=== PATIENT | female | born 1980 | race Caucasian/White ===

== ENCOUNTER 2017-08-21 13:00 | Outpatient (RCR) | payer OTHER, SELFPAY ==
--- NOTE | 2017-08-14 16:37 | PT.OTN ---
Current Diagnoses Other specified disorders of bone, other site (08/14/17) Sprain of sacroiliac joint, sequela (08/14/17) Other specified injury of muscle, fascia and tendon of right hip, sequela (08/14/17) Transition note: On August 08, 2017 our therapy services consisting of Speech, Occupational, and Physical Therapy transitioned from the [employer] electronic documentation system to a new [employer] electronic documentation system.?? All documentation prior to August 08 can be found under [employer] saved data. From August 08 forward all medical record documentation will be in [employer] 6.1.
--- NOTE | 2017-08-15 08:54 | PT.OTN ---
Current Diagnoses Other specified disorders of bone, other site (08/14/17) Sprain of sacroiliac joint, sequela (08/14/17) Other specified injury of muscle, fascia and tendon of right hip, sequela (08/14/17) Physical Therapy Treatment Note PT-OP-A Visit Information Start: 08/14/17 07:29 Freq: Status: Active Protocol: Activity Type Activity Date Activity User E-Sign Co-Sign Detail Recorded Client Recorded Date Recorded By Document 08/14/17 09:45 [facility] [email or web address] 08/15/17 08:52 [facility] 08/14/17 09:45 Out-Patient Physical Therapy Visit Information [Visit Information] -Visit Type Treatment Note -Visit Start Time 09:45 -Visit Stop Time 10:40 -Total Visit Minutes 55 -Number of [employer] Visits 0 PT-OP-C Subjective Start: 08/14/17 07:29 Freq: Status: Active Protocol: Activity Type Activity Date Activity User E-Sign Co-Sign Detail Recorded Client Recorded Date Recorded By Document 08/14/17 09:45 [facility] [email or web address] 08/15/17 08:52 [facility] 08/14/17 09:45 OP-PT Subjective [Patient Comments] -Patient Comments Reports her dog was sick last week so she had to cancel her last appointment. Notes she has not worked since last attended session and has not been using elliptical or doing videos. Report she has been walking and did 6 miles 1 day with 1 mile of running . Reports she also removed baseboards at home and has been feelin gmuch better. She ddi the elliptical this AM and is going to test her other activities before seeing MD on . -Patient Reported Progress Improving PT-OP-Q Treatments Start: 08/14/17 07:29 Freq: Status: Active Protocol: Activity Type Activity Date Activity User E-Sign Co-Sign Detail Recorded Client Recorded Date Recorded By Document 08/14/17 09:45 [facility] [email or web address] 08/15/17 08:52 [facility] 08/14/17 09:45 Therapeutic Exercises [Standing Exercises] 3 -Standing Exercise Name wall posture roll up with 90 /90 ER -Side bilateral 2 -Standing Exercise Name lunge -Side bilateral -Comments lumbar neutral & avoiding rotation 1 -Standing Exercise Name squat -Side bilateral -Comments cueing for lumbar neutral Therapeutic Activity [Therapeutic Activity] 1 -Name Standing posture & work posture/ positioning -Comments Went over common work positions and discussed proper position . Discussed bringing in a stool at all times when working. PT-OP-R Modalities Start: 08/14/17 07:29 Freq: Status: Active Protocol: Activity Type Activity Date Activity User E-Sign Co-Sign Detail Recorded Client Recorded Date Recorded By Document 08/14/17 09:45 [facility] [email or web address] 08/15/17 08:52 [facility] 08/14/17 09:45 Hot Pack/Cold Pack [Treatment] Cold Pack -Location lumbar -Patient Position Hooklying -Treatment Duration (minutes) 10 PT-OP-T Assessment and Plan Start: 08/14/17 07:29 Freq: Status: Active Protocol: Activity Type Activity Date Activity User E-Sign Co-Sign Detail Recorded Client Recorded Date Recorded By Document 08/14/17 09:45 [facility] [email or web address] 08/15/17 08:52 [facility] 08/14/17 09:45 Physical Therapy Assessment [Assessment Summary] -Assessment Pt was much improved with squat and lunge form today. She was able to do squats with very minimal cueing. Lunging with L foot back, pt had inc rotation through trunk that required correction. Able to problem solve some workplace issues with pt that are likely causing pain. Physical Therapy Plan [Frequency and Duration] -Frequency of Treatment 1x/Week -Plan of Care Start Date 07/22/17 -Plan of Care End Date 09/20/17 [Next Visit Focus/Plan] -Next Visit Plan Cont to work on posture during troublesome activities
--- NOTE | 2017-08-21 16:30 | PT.OTN ---
Current Diagnoses Other specified disorders of bone, other site (08/21/17) Sprain of sacroiliac joint, sequela (08/21/17) Other specified injury of muscle, fascia and tendon of right hip, sequela (08/21/17) Physical Therapy Treatment Note PT-OP-A Visit Information Start: 08/14/17 07:29 Freq: Status: Active Protocol: Document 08/21/17 13:00 AMB (Rec: 08/21/17 16:29 AMB [email or web address]) Out-Patient Physical Therapy Visit Information Visit Information Visit Type Treatment Note Visit Note POC expires September 20, 2017 Visit Start Time 13:00 Visit Stop Time 13:50 Total Visit Minutes 50 Visit Number 15 Evaluation Information Evaluation Date 05/24/17 PT-OP-C Subjective Start: 08/14/17 07:29 Freq: Status: Active Protocol: Document 08/21/17 13:00 AMB (Rec: 08/21/17 16:29 AMB [email or web address]) OP-PT Subjective Patient Comments Patient Comments Pt states she saw health benefits specialist who is not concerned about her disc bulge . He feels her pain is coming from her SI joint, and offered an injection which needs to go through her insurance to be authorized. Her pain was good until Monday , she thinks the elliptical really bothered her. Her pain is better today, she is working tomorrow. PT-OP-Q Treatments Start: 08/14/17 07:29 Freq: Status: Active Protocol: Document 08/21/17 13:00 AMB (Rec: 08/21/17 16:29 AMB [email or web address]) Therapeutic Exercises Supine Exercises 1 Supine Exercise Name hip flexor stretch Side right Reps/Minutes 2 x 30 Standing Exercises 2 Standing Exercise Name lunge Side bilateral Comments lumbar neutral & avoiding rotation 1 Standing Exercise Name squat Side bilateral Comments cueing for lumbar neutral Therapeutic Activity Therapeutic Activity 1 Name Standing posture & work posture/positioning Comments Pivot using feet vs twisting with spine Manual Therapy Treatment Soft Tissue Mobilization 1 Body Location R piriformis Mobilization Type Sustained Pressure Intensity/Depth Moderate Body Position Sidelying Joint Mobilizations 1 Joint SI Direction counter nutation Grade II Body Position Prone Reps/Duration 3 x 10 Manual Traction L LE Body Position Supine Manual Techniques MET Type to correct R anterior rotation Body Position hooklying Reps/Duration 3 x PT-OP-R Modalities Start: 08/14/17 07:29 Freq: Status: Active Protocol: Document 08/21/17 16:29 AMB (Rec: 08/21/17 16:29 AMB [email or web address]) Hot Pack/Cold Pack Treatment Cold Pack Location lumbar Patient Position Hooklying Treatment Duration (minutes) 10 PT-OP-T Assessment and Plan Start: 08/14/17 07:29 Freq: Status: Active Protocol: Document 08/21/17 13:00 AMB (Rec: 08/21/17 16:29 AMB [email or web address]) Physical Therapy Assessment Assessment Summary Assessment Pt continues to have good days and bad. She has been more active with yardwork and walking which do not flare her pain unless she is already painful. Physical Therapy Plan Frequency and Duration Frequency of Treatment 1x/Week Plan of Care Start Date 07/22/17 Plan of Care End Date 09/20/17 Next Visit Focus/Plan Next Visit Plan Progress HEP as tolerated to avoid pain flare up
--- NOTE | 2017-10-31 12:00 | PT.OPDS ---
Current Diagnoses Other specified disorders of bone, other site (08/21/17) Sprain of sacroiliac joint, sequela (08/21/17) Other specified injury of muscle, fascia and tendon of right hip, sequela (08/21/17) Provider Visit Care Team Role Provider Type Lia Perez MD Attending Provider Physician Family Provider Primary Care Provider Specialty: Family Practice Address: [address] [place] [address], [facility] Email: [email or web address] Visit Number Visit Number 15 Discharge Summary PT-OP-C Subjective Start: 08/14/17 07:29 Freq: Status: Active Protocol: Document 08/21/17 13:00 AMB (Rec: 08/21/17 16:29 AMB [email or web address]) OP-PT Subjective Patient Comments Patient Comments Pt states she saw hris specialist who is not concerned about her disc bulge . He feels her pain is coming from her SI joint, and offered an injection which needs to go through her insurance to be authorized. Her pain was good until Monday , she thinks the elliptical really bothered her. Her pain is better today, she is working tomorrow. PT-OP-T Assessment and Plan Start: 08/14/17 07:29 Freq: Status: Active Protocol: Document 10/31/17 09:58 AMB (Rec: 10/31/17 10:00 AMB [id number]) Physical Therapy Assessment Assessment Summary Assessment The patient was seen for 2 visits in this EMR. She was seen for 15 visits total. During her time in PT she was seen for right sided posterior SI/ buttock/ back pain. The pain would intermittently flare, especially with standing at work. The patient did improve to the point where she was ablet to exercise (but not at her previous baseline function). She was going to have surgery to remove a cyst in the area. Her insurance authorization has now and she would need to have a new prescription to restart physical therapy in the future , which she would be welcome to do if needed. Overall she improved with physical therapy , but not to her baseline level.
== END 2017-11-13 16:09 ==
LOC: PHYS 13:00
PROVIDERS: Family Provider Family Medicine; PCP Family Medicine; Visit Provider Family Medicine
DX: M89.8X8 Other specified disorders of bone, other site (principal); S33.6XXS Sprain of sacroiliac joint, sequela; S76.091 Other specified injury of muscle, fascia and tendon of right hip
CPT/HCPCS: 97010; 97110; 97140; 97530

== ENCOUNTER → 2017-09-25 08:36 | Outpatient (CLI) | payer OTHER, SELFPAY ==
[2017-09-25 09:44] LABS: Add Manual Diff / Slide Review NO; Basophils Percent Auto 0.7 % (0-2); Eosinophils Percent Auto 0.1 % (2-4); Hematocrit 43.1 % (36-46); Hemoglobin 14.9 g/dL (12.0-16.0); Mean Corpuscular HGB Conc 34.6 % (30-36); Mean Corpuscular Hemoglobin 30.7 PG (26-34); Mean Corpuscular Volume 88.7 fL (80-100); Monocytes Percent Auto 6.6 % (3-14); Neutrophils Absolute Auto 3900 /uL (3000-5900); Neutrophils Percent Auto 65.6 % (50-75); Platelet Count 208 X10^3/uL (150-400); Red Blood Cell Count 4.86 X10^6/uL (4.0-5.2); Red Cell Distribution Width 12.7 % (11.6-14.8)
[2017-09-25 10:04] LABS: Alanine Aminotransferase 22 IU/L (9-52); Albumin 4.4 g/dL (3.5-5.0); Albumin Globulin Ratio 1.5 (1.0-2.8); Alkaline Phosphatase 46 U/L (38-126); Aspartate Aminotransferase 20 IU/L (14-36); BUN Creatinine Ratio 21.7 (6-22); Blood Urea Nitrogen 13 mg/dL (7-17); Calcium 8.9 mg/dL (8.4-10.2); Carbon Dioxide 28 mmol/L (22-32); Chloride 101 mmol/L (98-107); Cholesterol 176 mg/dL (140-199); Estimated Glomerular Filt Rate > 60.0 mL/min (>60); Globulin 2.9 g/dL (1.7-4.1); Glucose 84 mg/dL (70-100); HDL Cholesterol 51 mg/dL (40-60); HEMOLYSIS < 15 (0-50); LDL Cholesterol Calculated 113 mg/dL (<100); Potassium 4.2 mmol/L (3.4-5.1); Sodium 141 mmol/L (137-145); Total Protein 7.3 g/dL (6.3-8.2); Triglycerides 61 mg/dL (35-150)
[2017-09-25 10:57] LABS: TSH w/ Reflex to FT4 3.54 uIU/mL (0.47-4.68)
== END ==
PROVIDERS: PCP Family Medicine; Visit Provider Family Medicine
DX: E78.5 Hyperlipidemia, unspecified (principal)
CPT/HCPCS: 36415; 80053; 80061; 84443; 85025

== ENCOUNTER 2017-10-12 06:55 | Day surgery (SDC) | payer OTHER, SELFPAY ==
[2017-09-28 15:14] VITALS: BMI 25.5
[2017-10-12] VITALS (7 sets, daily range): BP systolic 109–127; BP diastolic 71–78; PULSE 98–112; RESP 12–20; TEMP 36.3–37.1; O2SAT 100; BMI 25.5
--- NOTE | 2017-10-12 | PATH_ITS ---
[facility] Accession Number: [id number] . 01 Material submitted: . FATTY MASS OF THE BACK . 02 Diagnosis: Mass of the Back, Excision: Mature adipose tissue, consistent with lipoma. Negative for malignancy. MRV/10/16/2017 . 02 Electronically signed: . Aamir Macedo MD, PhD, Pathologist NPI- [id number] . 01 Gross description: . One specimen is received in formalin, labeled Nitza Guillaume and fatty mass of back, and consists of multiple irregular, fragmented portions of corado-yellow, lobulated, fibrofatty tissue, 6 x 4.5 x 3.2 cm in aggregate. Sectioning reveals a homogenous cut surface. [employer] sections are submitted in cassettes A1-A6. ([id number]) /FRR . 02 Pathologist provided ICD-10: D17.9 . 02 CPT . 405212 Performed at: 01 [facility] [address] [facility], [place], [place] [id number] MD Moses Watson MD Phone: [phone] Performed at: [facility] [address] [place], [place] [id number] MD Kb Friedman MD Phone: [phone]
[2017-10-12] MEDS: LACTATED RINGERS 1,000 ML 200 ML IV (07:15)
--- NOTE | 2017-10-12 07:45 | PM.HP.1 ---
History of Present Illness Date Patient Seen: 10/12/17 Time Patient Seen: 07:37 Chief complaint: [id number] EXCISION LOWER BACK LIPOMA Narrative: Patient is here for removal of a mass in her right lower back this clinically a lipoma. She thinks it is causing her localized pain and would like to have it removed. Patient History Medical History Asthma (Acute) History of UTI (Acute) Acne (Chronic) Hypothyroidism (Chronic) Surgical History History of endometrial ablation (Acute) History of surgery (Resolved) Status post tonsillectomy and adenoidectomy (Resolved) Family & Social History Family History: Reviewed 10/12/17 by Manas Cerna MD Social History: household members spouse Tobacco & Substance use: Smoking Status Never smoker alcohol intake current alcohol intake frequency a few times a week Substance Use Type does not use Meds Home Medications Medication Instructions Recorded Confirmed Type betamethasone dipropionate 0.05 % 1 applictn TOP DAILY PRN #15 gram 10/06/17 Rx topical cream levothyroxine 112 mcg capsule 112 mcg PO DAILY #90 cap 10/06/17 Rx Allergies Allergy/AdvReac Type Severity Reaction Status Date / Time Sulfa (Sulfonamide Allergy Mild HIVES Verified 10/12/17 07:07 Antibiotics) Review of Systems Review of Systems All systems reviewed & are unremarkable except as noted in HPI and below Exam Narrative Exam Narrative: Co Operative in no apparent distress. Lungs are clear to auscultation no rales or rhonchi. Heart regular rate and rhythm without murmur gallop. Abdomen is scaphoid soft. Patient has a 5 x 3 cm mass in the deep soft tissues of the right lower back. It is been marked. She is alert oriented x3. Assessment & Plan Plan: Assessment/Plan Narrative: Mass patient believes to be symptomatic here for removal. I have discussed the procedure risks of bleeding infection recurrence and failure to improve her pain discussed.
[2017-10-12] MEDS: CEFAZOLIN 2 GM/100 ML FROZ.PIGGY IV (07:46)
--- NOTE | 2017-10-12 07:48 | PM.PREOP ---
Pre-operative Note Interval Note Pre-op Check: History & Physical exam performed today H&P completed within 30 days and has changed as indicated here:: None
--- NOTE | 2017-10-12 08:28 | SUR.OPER ---
Lateral on padded OR bed, head on pillow, gel axillary roll in place, bottom leg bent, upper leg straight and supported with pillows. Upper arm supported by pillows and secured with kerlix roll. Hip positioner placed at abdomen, hips and lower legs secured to bed with tape
[2017-10-12] MEDS: BUPIVACAINE 0.5% W/ EPI (PF) 30 ML VIAL INJ (08:35)
--- NOTE | 2017-10-16 10:08 | PM.OP.1 ---
Operative Date/Time/Diagnoses Date of procedure: 10/12/17 Time of procedure: 16:09 Pre-op diagnosis: Mass in the right lower back probable lipoma Post-op diagnosis: same Procedure & Clinicians Procedure: Excision of mass, ultimately measured 6 x 3 cm Same procedure as scheduled: Yes Indications: Painful mass right lower back Surgeon: Manas Cerna Click Yes if Unassisted: Yes Anesthesia Type: General Operative Notes Findings: Fatty mass attached to underlying muscle Closure Type: primary Specimen(s): other (Mass) Implants & Drains: None Estimated Blood Loss (mL): 10 Blood products transfused: none Procedure in detail: The patient was placed supine on the operating room table and underwent general LMA anesthesia. She was placed left lateral decubitus position and prepped and draped in the usual fashion. Local anesthetic was infiltrated and a transverse incision made paralleling the shape of the mass. It was carried down through subcutaneous fat and fascia to the level of the mass. The mass was excised sharply. It was attached to underlying paraspinal muscle. Specimen was removed. Hemostasis was achieved. The fascia was reapproximated and the subcu reapproximated with 3 0 Polysorb. The skin was closed a running 4 0 Polysorb subcuticular stitch and Steri-Strips. Dressing was applied the patient was awakened extubated and taken recovery room good condition. Complications: none Condition: stable Disposition: PACU Plan for aftercare: Follow-up in the office
== END 2017-10-12 10:05 | disposition home or self-care (01) ==
PROVIDERS: Family Provider Family Medicine; PCP Family Medicine; Visit Provider Specialist
PROC: (CPT 21931; principal; 2017-10-12 07:45)
DX: D17.1 Benign lipomatous neoplasm of skin and subcutaneous tissue of trunk (principal); M54.5 Low back pain; J45.909 Unspecified asthma, uncomplicated
CPT/HCPCS: 21931; J0690; J1100; J2250; J2405; J2704; J3010

== ENCOUNTER → 2018-01-08 09:11 | Outpatient (CLI) | payer OTHER, SELFPAY | PROVIDERS: PCP Family Medicine; Visit Provider Family Medicine | DX: E03.9 Hypothyroidism, unspecified (principal) | CPT/HCPCS: 36415; 84443 ==

== ENCOUNTER → 2018-03-12 14:05 | Outpatient (CLI) | payer OTHER, SELFPAY ==
--- NOTE | 2018-03-12 14:06 | DI.RAD.S_ITS ---
PROCEDURE: FL HIP INJECTION MR/CT RT INDICATIONS: hip pain X 1.5 yrs TECHNIQUE: The indications, alternatives, benefits, risks, and complications of the procedure were explained to the patient. Written informed consent was obtained and placed in the chart. The hip was examined fluoroscopically with the legs fixed in slight internal rotation, and a site for needle placement chosen for entry into the hip joint from an anterior approach. Care was taken to locate the common femoral artery and vein beforehand. The skin was prepped and draped in a sterile fashion, and 1% Lidocaine infiltrated from skin down to joint capsule. A spinal needle was inserted into the joint, and a small amount of iodinated contrast media injected to confirm intra-articular placement of the needle tip. This was followed by approximately 10 mL dilute solution of a gadolinium containing MR contrast agent. The needle was removed and a dressing was applied. The patient was given postprocedural instructions and sent to the MR suite for imaging. FINDINGS: A single fluoroscopic spot image demonstrates intra-articular location of injected iodinated contrast. IMPRESSION: Successful fluoroscopically guided administration of dilute Gadolinium solution into the hip joint for MR arthrogram. Dictated by: Víctor Mcmillan M.D. on 03/12/2018 at 16:38 Approved by: Víctor Mcmillan M.D. on 03/12/2018 at 16:38
--- NOTE | 2018-03-12 14:06 | DI.MRI.S_ITS ---
PROCEDURE: MR HIP RT W CON INDICATIONS: Right hip and groin pain for 1.5 years TECHNIQUE: After the administration of 10 mL of dilute intra-articular Gadolinium contrast, coronal STIR of the bony pelvis; coronal and oblique axial T1 spin echo with fat saturation, axial T2 fast spin echo with fat saturation, sagittal T1 spin echo with and without fat saturation of the involved hip. COMPARISON: [facility], RF, [place] HIP INJECTION MR/CT RT, 03/12/2018, 14:30. [facility], CR, PELVIS 1 OR 2 VIEWS, 05/08/2017, 12:01. FINDINGS: Image quality: Diagnostic. Bones and joints: There is no acute fracture, dislocation, suspicious osseous lesion, or evidence of avascular necrosis involving osseous structures of the right hip. Mild bony prominence involving the superior femoral head-neck junction is identified (distal customer relations assistant deformity). The alpha angle of the right femoral head measures approximately 55?. There is adequate distention of the right hip joint with the injected contrast. No loose intra-articular joint bodies are identified. There may be mild degenerative changes of the right hip joint. No full-thickness collagenous defects are evident of the hyaline articular cartilage. The remainder of the image osseous structures of the pelvis demonstrate mild degenerative changes of the included lower lumbar spine. No suspicious lesions or fractures of the included bony pelvis is evident. Labrum: There is a nondisplaced tear identified involving the superior aspect of the labrum that extends from approximately the 12 o'clock to the 1 o'clock position (image 12, series 5). A large para labral cysts or detached labral fragments are identified. Tendons and ligaments: The gluteus medius and minimus tendons appear intact, without associated muscle atrophy. The nearby proximal iliotibial band also appears intact. The iliopsoas tendon appears intact, without adjacent bursal fluid collections or evidence for impingement syndrome. The origin of the hamstring tendon is intact at the ischial tuberosity, as well as the associated sacrotuberous ligament. The straight and reflected heads of the rectus femoris muscle origin appear intact, as well as the conjoint tendon. The ligamentum teres appears intact where visualized. Soft tissues: Visualized muscles demonstrate normal bulk and internal signal. Quadratus femoris muscle demonstrates no internal edema to suggest ischiofemoral impingement. The proximal sciatic neurovascular bundle appears normal adjacent to the hamstring tendons. A small amount of free fluid within the pelvis is likely physiologic. Bladder wall thickness is normal. Genitourinary structures and bowel loops appear normal where visualized. IMPRESSION: 1. Small superior right acetabular labral tear. 2. Mild distal customer relations assistant deformity of the proximal femur is nonspecific. Please correlate clinically to exclude femoral acetabular impingement. Dictated by: Joss Schaffer M.D. on 03/12/2018 at 16:13 Approved by: Joss Schaffer M.D. on 03/12/2018 at 16:19
== END ==
PROVIDERS: Family Provider Family Medicine; PCP Family Medicine; Visit Provider Family Medicine
DX: S73.191A Other sprain of right hip, initial encounter (principal); M25.551 Pain in right hip
CPT/HCPCS: 27093; 73722; 77002

== ENCOUNTER → 2018-09-07 13:16 | Outpatient (CLI) | payer OTHER, SELFPAY ==
[2018-09-07 15:09] LABS: TSH w/ Reflex to FT4 0.95 uIU/mL (0.47-4.68)
== END ==
PROVIDERS: PCP Family Medicine; Visit Provider Family Medicine
DX: E03.9 Hypothyroidism, unspecified (principal)
CPT/HCPCS: 36415; 84443

== ENCOUNTER → 2018-09-21 09:40 | Outpatient (CLI) | payer OTHER, SELFPAY ==
[2018-09-21 10:11] LABS: Add Manual Diff / Slide Review NO; Basophils Absolute Auto 0 /uL (0-100); Basophils Percent Auto 0.9 % (0-2); Eosinophils Absolute Auto 0 /uL (0-450); Eosinophils Percent Auto 0.1 % (2-4); Hematocrit 42.7 % (36-46); Hemoglobin 14.6 g/dL (12.0-16.0); Lymphocytes Absolute Auto 1900 /uL (1100-4500); Lymphocytes Percent Auto 33.9 % (25-40); Mean Corpuscular HGB Conc 34.2 % (30-36); Mean Corpuscular Hemoglobin 30.2 PG (26-34); Mean Corpuscular Volume 88.3 fL (80-100); Monocytes Absolute Auto 500 /uL (0-900); Monocytes Percent Auto 8.3 % (3-14); Neutrophils Absolute Auto 3100 /uL (1500-7000); Neutrophils Percent Auto 56.8 % (50-75); Platelet Count 198 X10^3/uL (150-400); Red Blood Cell Count 4.83 X10^6/uL (4.0-5.2); Red Cell Distribution Width 12.8 % (11.6-14.8); White Blood Cell Count 5.5 X10^3/uL (4.5-11.0)
[2018-09-21 10:25] LABS: Alanine Aminotransferase 30 IU/L (9-52); Albumin 4.3 g/dL (3.5-5.0); Albumin Globulin Ratio 1.7 (1.0-2.8); Alkaline Phosphatase 45 U/L (38-126); Aspartate Aminotransferase 27 IU/L (14-36); BUN Creatinine Ratio 18.3 (6-22); Bilirubin Total 0.9 mg/dL (0.2-1.3); Blood Urea Nitrogen 11 mg/dL (7-17); Calcium 9.3 mg/dL (8.4-10.2); Carbon Dioxide 31 mmol/L (22-32); Chloride 100 mmol/L (98-107); Estimated Glomerular Filt Rate > 60.0 mL/min (>60); Globulin 2.5 g/dL (1.7-4.1); Glucose 72 mg/dL (70-100); HEMOLYSIS < 15 (0-50); Potassium 4.3 mmol/L (3.4-5.1); Sodium 138 mmol/L (137-145); Total Protein 6.8 g/dL (6.3-8.2)
== END ==
PROVIDERS: PCP Family Medicine; Visit Provider Family Medicine
DX: R53.83 Other fatigue (principal)
CPT/HCPCS: 36415; 80053; 85025

== ENCOUNTER → 2018-12-24 14:43 | Outpatient (CLI) | payer OTHER, SELFPAY ==
[2018-12-24 15:42] LABS: Thyroid Stimulating Hormone 2.01 uIU/mL (0.47-4.68)
[2018-12-24 15:44] LABS: TSH w/ Reflex to FT4 2.03 uIU/mL (0.47-4.68)
[2018-12-24 15:48] LABS: Ferritin 16.6 ng/mL (6.27-137)
== END ==
PROVIDERS: PCP Family Medicine; Visit Provider Family Medicine
DX: L65.9 Nonscarring hair loss, unspecified (principal)
CPT/HCPCS: 36415; 82728; 84439; 84443

== ENCOUNTER 2019-01-03 09:00 | Outpatient (RCR) | payer OTHER, SELFPAY ==
--- NOTE | 2018-04-24 13:17 | PT.OIE ---
Current Diagnoses Other sprain of unspecified hip, initial encounter (04/24/18) Past Medical History (Last Reviewed 03/28/18 @ 13:29 by Kathie Richardson DO) Acne (Chronic) Hypothyroidism (Chronic) Asthma (Resolved) Lipoma (Resolved 2017) (spontaneous vaginal delivery) (Resolved 2006) (spontaneous vaginal delivery) (Resolved 2010) Shingles (Resolved) Past Surgical History (Last Reviewed 03/28/18 @ 13:29 by Kathie Richardson DO) Anesthesia (Resolved) History of endometrial ablation (Resolved 10/17/14) History of surgery (Resolved) Status post excision of lipoma (Resolved 10/12/17) Status post tonsillectomy and adenoidectomy (Resolved ~1997) Provider Visit Care Team Role Provider Type Kathie Richardson DO Attending Provider Physician Primary Care Provider Specialty: Family Practice Address: [address] [place] [address], [facility] Email: [email or web address] Physical Therapy Initial Evaluation PT-OP-A Visit Information Start: 04/24/18 10:51 Freq: Status: Active Protocol: Document 04/24/18 10:55 EA (Rec: 04/24/18 10:58 EA [id number]) Out-Patient Physical Therapy Visit Information Visit Information Visit Type Initial Evaluation Visit Start Time 09:00 Visit Stop Time 09:45 Total Visit Minutes 30 Visit Number 1 Number of DESIGN SPECIALIST Visits 0 Evaluation Information Evaluation Date 04/24/18 PT-OP-B Current Condition Start: 04/24/18 10:51 Freq: Status: Active Protocol: Document 04/24/18 12:20 EA (Rec: 04/24/18 12:38 EA [id number]) Current Condition History of Current Condition Onset Date 1 1/2 year ago Current Complaints Right hip throbbing pain History of Current Condition Present condition started a year and half ago with no history of injury. Previous PT treatment six months ago was due to right low back and SI joint pain was resolved through surgery on October 2017. Medical reports reveals labral tear to right w/ detached labral fragments. Patient referred to PT for evaluation and treatment. Prior Treatments and Tests August 2017: Formal PT treatment for right low back and SI joint pain Future Testing and Treatments Planned None Identified but patient is not motivated to undergo surgery as possible. Treatment Goals Patient/Caregiver Goals Patient would like to strengthen right hip. 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 Function- Recreation/Hobbies Able to play soccer with her kids and perform fitness/yoga exercises with no limitation Current Functional Impairments (Reported) Functional Limitations- ADL's Indep with minimal difficulty with all activities that requires deep squatting Functional Limitations- Mobility/Gait Limited with long standing walking due to increased in hip pain Functional Limitations- Work/School Limited with long time sitting position Functional Limitations- Recreation/ Increased pain with activities Hobbies that requires deep squatting and agility PT-OP-C Subjective Start: 04/24/18 10:51 Freq: Status: Active Protocol: Document 04/24/18 12:20 EA (Rec: 04/24/18 12:38 EA [id number]) OP-PT Subjective Patient Comments Patient Comments I dont want to undergo hip surgery: states would like to try PT and would like to know specialist opinion. Patient Reported Progress Same Patient Questionnaires Lower Extremity Functional Scale LEFS Score 59 LEFS Impairment 20 to 39% Impaired (Score 48- 62) PT-OP-D Balance Start: 04/24/18 10:51 Freq: Status: Active Protocol: Document 04/24/18 12:38 EA (Rec: 04/24/18 13:10 EA [id number]) Balance Tests Single Limb Standing Single Limb- Right able <10 secs Single Limb- Left able > 10 sec PT-OP-E Functional Tests Start: 04/24/18 10:51 Freq: Status: Active Protocol: Document 04/24/18 12:38 EA (Rec: 04/24/18 13:10 EA [id number]) Functional Tests Other 1 Name of Test Deep/full squat Comment Mild difficulty to right hip PT-OP-F Manual Assessment Start: 04/24/18 10:51 Freq: Status: Active Protocol: Document 04/24/18 12:38 EA (Rec: 04/24/18 13:10 EA [id number]) Manual Assessments Soft Tissue Assessment Soft Tissue Mobility Assessment Tight right hamstring Joint Mobility Assessment Joint Mobility Assessment Hypo mobility to right hip ( Flexion) PT-OP-G Mobility & Gait Start: 04/24/18 10:51 Freq: Status: Active Protocol: Document 04/24/18 12:38 EA (Rec: 04/24/18 13:10 EA [id number]) OP Gait Assessment Gait Gait Assistance Required: Independent Able to Maintain Weight Bearing Status Yes During Gait Gait Deviations General Gait Pattern Antalgic Comments Gait Comments Mild antalgic to right leg; slight decreased right leg stance phase PT-OP-J Posture/Palpation/Skin Start: 04/24/18 10:51 Freq: Status: Active Protocol: Document 04/24/18 12:38 EA (Rec: 04/24/18 13:10 EA [id number]) Posture Evaluation Comments Posture Comments Good general body posture with slight increased low back pain PT-OP-K Range of Motion Start: 04/24/18 10:51 Freq: Status: Active Protocol: Document 04/24/18 12:38 EA (Rec: 04/24/18 13:10 EA [id number]) Hip Goniometric Range of Motion Hip Measured in Degrees Right Passive Testing Position Supine Flexion w/Knee Flexed 125 Right Active Testing Position Supine Flexion w/Knee Flexed 110 Left Active Hip ROM WFL Yes Flexion w/Knee Flexed 130 Hip ROM Limitations Hip ROM Limitations Pain PT-OP-L Special Tests Start: 04/24/18 10:51 Freq: Status: Active Protocol: Document 04/24/18 12:38 EA (Rec: 04/24/18 13:10 EA [id number]) Special Tests Hip Special Tests Scour Test Test Results negative ALYCIA Test Results positive Paola's Test Test Results negative Other Special Tests Special Tests Hip Labral tests (F/ADD/IR): Positive PT-OP-M Strength Start: 04/24/18 10:51 Freq: Status: Active Protocol: Document 04/24/18 12:38 EA (Rec: 04/24/18 13:10 EA [id number]) Hip Strength Hip Manual Muscle Testing Right Flexion (L2) 4 Good Extension (S1) 5 Normal Abduction 5 Normal Adduction 4+ Good+ External Rotation 5 Normal Internal Rotation 4 Good Left Flexion (L2) 5 Normal Extension (S1) 5 Normal Abduction 5 Normal Adduction 5 Normal External Rotation 5 Normal Internal Rotation 5 Normal PT-OP-Q Treatments Start: 04/24/18 10:51 Freq: Status: Active Protocol: Document 04/24/18 12:38 EA (Rec: 04/24/18 13:10 EA [id number]) Self-Care/Home Management Treatment Education Patient Education Home Exercise Program Joint Protection Pain Management PT-OP-T Assessment and Plan Start: 04/24/18 10:51 Freq: Status: Active Protocol: Document 04/24/18 12:38 EA (Rec: 04/24/18 13:10 EA [id number]) Physical Therapy Assessment Rehab Potential Rehabilitation Potential Good Evaluation Complexity Number of Personal Factors/Comorbidities 0 Number of Body Systems Impaired 1-2 Clinical Presentation at Evaluation Stable Impairments Impairments Activity Tolerance Gait Pain ROM Soft Tissue Mobility Strength Goals Four Impairment Limited knowledge to current condition Senior Living Goal (LTG) Patient will learn safe fitness exercises and hip joint pre-cautions activity to prevent further injury. LTG Duration 4 wks Three Impairment No HEP in place Short Term Goal (STG) Patient will learn safe progressive hip strengthen exercises STG Duration 3 wks Two Impairment Decreased right hip strength Senior Living Goal (LTG) Patient will increased right hip strength by 1/2 grade to enhance right hip stability LTG Duration 6 wks One Impairment LEFS 59/80 Lab Intern Goal (LTG) Patient will have LEFS of > 65 LTG Duration 4 wks Assessment Summary Assessment Pleasant 37 y/o F patient with a referring diagnosis of right hip labral tear. Today patient exhibited limited squatting ability and other activities that requires deep squatting due to decreased hip ROM and increased discomfort to right hip joint. Right hip flexors and IRotators weakness is also evident but very slight. Special tests reveals positive with ALYCIA and labral tests. In my professional opinion patient would benefit with skilled PT to improve hip strength and stability with decreasing discomfort; however if surgery is required for ultimate care of labral tear, patient is informed and advised to seek her specialist immediately. Physical Therapy Plan Frequency and Duration Frequency of Treatment 1x/Week Duration of Treatment 8 wks Plan of Care Start Date 04/24/18 Plan of Care End Date 06/19/18 Therapeutic Interventions Therapeutic Interventions Gait Training Home Exercise Program Joint Mobilizations Manual Therapy Patient/Caregiver Education Self-Care/Home Management Soft Tissue Mobilization Therapeutic Exercises Modalities Cold Pack/Ice Massage Electric Stimulation Next Visit Focus/Plan Next Note Type Treatment Note Next Visit Plan HEP with images; hip strengthening for stability
--- NOTE | 2018-04-24 13:19 | PT.OPPOC ---
Current Diagnoses Other sprain of unspecified hip, initial encounter (04/24/18) Provider Visit Care Team Role Provider Type Kathie Richardson DO Attending Provider Physician Primary Care Provider Specialty: Family Practice Address: [address] [place] [address], [address] Email: [email or web address] Plan Of Care PT-OP-T Assessment and Plan Start: 04/24/18 10:51 Freq: Status: Active Protocol: Document 04/24/18 12:38 EA (Rec: 04/24/18 13:10 EA [id number]) Physical Therapy Assessment Rehab Potential Rehabilitation Potential Good Evaluation Complexity Number of Personal Factors/Comorbidities 0 Number of Body Systems Impaired 1-2 Clinical Presentation at Evaluation Stable Impairments Impairments Activity Tolerance Gait Pain ROM Soft Tissue Mobility Strength Goals Four Impairment Limited knowledge to current condition Pediatric Sports Medicine Specialist Goal (LTG) Patient will learn safe fitness exercises and hip joint pre-cautions activity to prevent further injury. LTG Duration 4 wks Three Impairment No HEP in place Short Term Goal (STG) Patient will learn safe progressive hip strengthen exercises STG Duration 3 wks Two Impairment Decreased right hip strength Pediatric Sports Medicine Specialist Goal (LTG) Patient will increased right hip strength by 1/2 grade to enhance right hip stability LTG Duration 6 wks One Impairment LEFS 59/80 Intermediate Goal (LTG) Patient will have LEFS of > 65 LTG Duration 4 wks Assessment Summary Assessment Pleasant 37 y/o F patient with a referring diagnosis of right hip labral tear. Today patient exhibited limited squatting ability and other activities that requires deep squatting due to decreased hip ROM and increased discomfort to right hip joint. Right hip flexors and IRotators weakness is also evident but very slight. Special tests reveals positive with ALYCIA and labral tests. In my professional opinion patient would benefit with skilled PT to improve hip strength and stability with decreasing discomfort; however if surgery is required for ultimate care of labral tear, patient is informed and advised to seek her specialist immediately. Physical Therapy Plan Frequency and Duration Frequency of Treatment 1x/Week Duration of Treatment 8 wks Plan of Care Start Date 04/24/18 Plan of Care End Date 06/19/18 Therapeutic Interventions Therapeutic Interventions Gait Training Home Exercise Program Joint Mobilizations Manual Therapy Patient/Caregiver Education Self-Care/Home Management Soft Tissue Mobilization Therapeutic Exercises Modalities Cold Pack/Ice Massage Electric Stimulation Next Visit Focus/Plan Next Note Type Treatment Note Next Visit Plan HEP with images; hip strengthening for stability Plan of Care Dates Plan of Care Start Date 04/24/18 Plan of Care End Date 06/19/18 Please Sign and Return: I have reviewed this Plan of Care and certify that the skilled therapy services above are required to meet the patient?s needs. Physician Signature Date Printed Name and Credentials Clinical Instructor Signature Printed Name and Credentials
--- NOTE | 2018-05-02 16:54 | PT.OTN ---
Current Diagnoses Other sprain of right hip, initial encounter (05/02/18) Physical Therapy Treatment Note PT-OP-A Visit Information Start: 04/24/18 10:51 Freq: Status: Active Protocol: Document 05/02/18 16:48 EA (Rec: 05/02/18 16:54 EA [id number]) Out-Patient Physical Therapy Visit Information Visit Information Visit Type Treatment Note Visit Start Time 16:00 Visit Stop Time 16:45 Total Visit Minutes 45 Visit Number 2 PT-OP-B Current Condition Start: 04/24/18 10:51 Freq: Status: Active Protocol: Document 04/24/18 12:20 EA (Rec: 04/24/18 12:38 EA [id number]) Current Condition History of Current Condition Onset Date 1 1/2 year ago Current Complaints Right hip throbbing pain History of Current Condition Present condition strated a year and half ago with no history of injury. Previous PT treatment six months ago was due to right low back and SI joint pain was resolved through surgery on October 2017. Medical reports reveals labral tear to right w/ detached labral fragments. Patient reffered to PT for evaluation and treatment. Prior Treatments and Tests August 2017: Formal PT treatment for right low back and SI joint pain Future Testing and Treatments Planned None Identified but patient is not motivated to undergo surgery as possible. Treatment Goals Patient/Caregiver Goals Patient would like to strengthen right hip. 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 Function- Recreation/Hobbies Able to play soccer with her kids and perform fitness/yoga exercises with no limitation Current Functional Impairments (Reported) Functional Limitations- ADL's Indep with minimal difficulty with all activities that requires deep squating Functional Limitations- Mobility/Gait Limited with long standing walking due to increased in hip pain Functional Limitations- Work/School Limited with long time sitting position Functional Limitations- Recreation/ Increased pain with activities Hobbies that requires deep squatting and agility PT-OP-C Subjective Start: 04/24/18 10:51 Freq: Status: Active Protocol: Document 05/02/18 16:48 EA (Rec: 05/02/18 16:54 EA [id number]) OP-PT Subjective Patient Comments Patient Comments Pt reports aching pain noted while working and use heating pads to lessen it. PT-OP-D Balance Start: 04/24/18 10:51 Freq: Status: Active Protocol: Document 04/24/18 12:38 EA (Rec: 04/24/18 13:10 EA [id number]) Balance Tests Single Limb Standing Single Limb- Right able <10 secs Single Limb- Left able > 10 sec PT-OP-E Functional Tests Start: 04/24/18 10:51 Freq: Status: Active Protocol: Document 04/24/18 12:38 EA (Rec: 04/24/18 13:10 EA [id number]) Functional Tests Other 1 Name of Test Deep/full squat Comment Mild difficulty to right hip PT-OP-F Manual Assessment Start: 04/24/18 10:51 Freq: Status: Active Protocol: Document 04/24/18 12:38 EA (Rec: 04/24/18 13:10 EA [id number]) Manual Assessments Soft Tissue Assessment Soft Tissue Mobility Assessment Tight right hamstring Joint Mobility Assessment Joint Mobility Assessment Hypo mobility to right hip ( Flexion) PT-OP-G Mobility & Gait Start: 04/24/18 10:51 Freq: Status: Active Protocol: Document 04/24/18 12:38 EA (Rec: 04/24/18 13:10 EA [id number]) OP Gait Assessment Gait Gait Assistance Required: Independent Able to Maintain Weight Bearing Status Yes During Gait Gait Deviations General Gait Pattern Antalgic Comments Gait Comments Miled antalgic to right leg; slight decreased right leg stance phase PT-OP-J Posture/Palpation/Skin Start: 04/24/18 10:51 Freq: Status: Active Protocol: Document 04/24/18 12:38 EA (Rec: 04/24/18 13:10 EA [id number]) Posture Evaluation Comments Posture Comments Good general body posture with slight increased low back pain PT-OP-K Range of Motion Start: 04/24/18 10:51 Freq: Status: Active Protocol: Document 04/24/18 12:38 EA (Rec: 04/24/18 13:10 EA [id number]) Hip Goniometric Range of Motion Hip Measured in Degrees Right Passive Testing Position Supine Flexion w/Knee Flexed 125 Right Active Testing Position Supine Flexion w/Knee Flexed 110 Left Active Hip ROM WFL Yes Flexion w/Knee Flexed 130 Hip ROM Limitations Hip ROM Limitations Pain PT-OP-L Special Tests Start: 04/24/18 10:51 Freq: Status: Active Protocol: Document 04/24/18 12:38 EA (Rec: 04/24/18 13:10 EA [id number]) Special Tests Hip Special Tests Scour Test Test Results negative ALYCIA Test Results positive Paola's Test Test Results negative Other Special Tests Special Tests Hip Labral tests (F/ADD/IR): Positive PT-OP-M Strength Start: 04/24/18 10:51 Freq: Status: Active Protocol: Document 04/24/18 12:38 EA (Rec: 04/24/18 13:10 EA [id number]) Hip Strength Hip Manual Muscle Testing Right Flexion (L2) 4 Good Extension (S1) 5 Normal Abduction 5 Normal Adduction 4+ Good+ External Rotation 5 Normal Internal Rotation 4 Good Left Flexion (L2) 5 Normal Extension (S1) 5 Normal Abduction 5 Normal Adduction 5 Normal External Rotation 5 Normal Internal Rotation 5 Normal PT-OP-Q Treatments Start: 04/24/18 10:51 Freq: Status: Active Protocol: Document 05/02/18 16:48 EA (Rec: 05/02/18 16:54 EA [id number]) Cardio Equipment Elliptical Duration (Minutes) 5 Resistance 4 Gym Equipment Shuttle Recovery Unilateral Squats Resistance 3-4 cords Shuttle Recovery Platform Stable Reps/Time x 15 reps x 2 sets Shuttle Balance 1 Details fwd/bwd/ swd tilt Reps/Duration x 10 mins Comments x 10 mins Therapeutic Exercises Supine Exercises 2 Supine Exercise Name knee to chest stretch Sitting Exercises 1 Sitting Exercise Name hip ER/IR Side right Resistance GTB Reps/Minutes x 12 reps x 2 sets Standing Exercises 3 Standing Exercise Name 90 deg squat Side bilateral Resistance GTB above the knee Reps/Minutes x 12 reps x 2 sets 2 Standing Exercise Name fwd lunges Side right Reps/Minutes x 12 ft x 6 lines Comments t-bal half trunk rot 1 Standing Exercise Name Side step squart Side right Resistance GTB to both ankles PT-OP-T Assessment and Plan Start: 04/24/18 10:51 Freq: Status: Active Protocol: Document 05/02/18 16:48 EA (Rec: 01/23/19 16:54 EA [id number]) Physical Therapy Assessment Assessment Summary Assessment Tolerated treatment with minor discomfort toward full knee to chest; however therex exhibits good form. Physical Therapy Plan Next Visit Focus/Plan Next Note Type Treatment Note Next Visit Plan Cont closed chain exercises and advance as necessary.
--- NOTE | 2018-05-16 16:35 | PT.OTN ---
Current Diagnoses Other sprain of right hip, initial encounter (05/16/18) Physical Therapy Treatment Note PT-OP-A Visit Information Start: 04/24/18 10:51 Freq: Status: Active Protocol: Document 05/16/18 16:25 EA (Rec: 05/23/18 07:33 EA [id number]) Out-Patient Physical Therapy Visit Information Visit Information Visit Type Treatment Note Visit Start Time 10:30 Visit Stop Time 11:20 Total Visit Minutes 50 Visit Number 3 PT-OP-B Current Condition Start: 04/24/18 10:51 Freq: Status: Active Protocol: Document 04/24/18 12:20 EA (Rec: 04/24/18 12:38 EA [id number]) Current Condition History of Current Condition Onset Date 1 1/2 year ago Current Complaints Right hip throbbing pain History of Current Condition Present condition strated a year and half ago with no history of injury. Previous PT treatment six months ago was due to right low back and SI joint pain was resolved through surgery on October 2017. Medical reports reveals labral tear to right w/ detached labral fragments. Patient reffered to PT for evaluation and treatment. Prior Treatments and Tests August 2017: Formal PT treatment for right low back and SI joint pain Future Testing and Treatments Planned None Identified but patient is not motivated to undergo surgery as possible. Treatment Goals Patient/Caregiver Goals Patient would like to strengthen right hip. 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 Function- Recreation/Hobbies Able to play soccer with her kids and perform fitness/yoga exercises with no limitation Current Functional Impairments (Reported) Functional Limitations- ADL's Indep with minimal difficulty with all activities that requires deep squating Functional Limitations- Mobility/Gait Limited with long standing walking due to increased in hip pain Functional Limitations- Work/School Limited with long time sitting position Functional Limitations- Recreation/ Increased pain with activities Hobbies that requires deep squatting and agility PT-OP-C Subjective Start: 04/24/18 10:51 Freq: Status: Active Protocol: Document 05/16/18 16:25 EA (Rec: 05/23/18 07:33 EA [id number]) OP-PT Subjective Patient Comments Patient Comments Pt reports groin pain increased during at work and states consistent with yoga and HEP almost everyday. Patient Reported Progress Same PT-OP-D Balance Start: 04/24/18 10:51 Freq: Status: Active Protocol: Document 04/24/18 12:38 EA (Rec: 04/24/18 13:10 EA [id number]) Balance Tests Single Limb Standing Single Limb- Right able <10 secs Single Limb- Left able > 10 sec PT-OP-E Functional Tests Start: 04/24/18 10:51 Freq: Status: Active Protocol: Document 04/24/18 12:38 EA (Rec: 04/24/18 13:10 EA [id number]) Functional Tests Other 1 Name of Test Deep/full squat Comment Mild difficulty to right hip PT-OP-F Manual Assessment Start: 04/24/18 10:51 Freq: Status: Active Protocol: Document 04/24/18 12:38 EA (Rec: 04/24/18 13:10 EA [id number]) Manual Assessments Soft Tissue Assessment Soft Tissue Mobility Assessment Tight right hamstring Joint Mobility Assessment Joint Mobility Assessment Hypo mobility to right hip ( Flexion) PT-OP-G Mobility & Gait Start: 04/24/18 10:51 Freq: Status: Active Protocol: Document 04/24/18 12:38 EA (Rec: 04/24/18 13:10 EA [id number]) OP Gait Assessment Gait Gait Assistance Required: Independent Able to Maintain Weight Bearing Status Yes During Gait Gait Deviations General Gait Pattern Antalgic Comments Gait Comments Miled antalgic to right leg; slight decreased right leg stance phase PT-OP-J Posture/Palpation/Skin Start: 04/24/18 10:51 Freq: Status: Active Protocol: Document 04/24/18 12:38 EA (Rec: 04/24/18 13:10 EA [id number]) Posture Evaluation Comments Posture Comments Good general body posture with slight increased low back pain PT-OP-K Range of Motion Start: 04/24/18 10:51 Freq: Status: Active Protocol: Document 04/24/18 12:38 EA (Rec: 04/24/18 13:10 EA [id number]) Hip Goniometric Range of Motion Hip Measured in Degrees Right Passive Testing Position Supine Flexion w/Knee Flexed 125 Right Active Testing Position Supine Flexion w/Knee Flexed 110 Left Active Hip ROM WFL Yes Flexion w/Knee Flexed 130 Hip ROM Limitations Hip ROM Limitations Pain PT-OP-L Special Tests Start: 04/24/18 10:51 Freq: Status: Active Protocol: Document 04/24/18 12:38 EA (Rec: 04/24/18 13:10 EA [id number]) Special Tests Hip Special Tests Scour Test Test Results negative ALYCIA Test Results positive Paola's Test Test Results negative Other Special Tests Special Tests Hip Labral tests (F/ADD/IR): Positive PT-OP-M Strength Start: 04/24/18 10:51 Freq: Status: Active Protocol: Document 04/24/18 12:38 EA (Rec: 04/24/18 13:10 EA [id number]) Hip Strength Hip Manual Muscle Testing Right Flexion (L2) 4 Good Extension (S1) 5 Normal Abduction 5 Normal Adduction 4+ Good+ External Rotation 5 Normal Internal Rotation 4 Good Left Flexion (L2) 5 Normal Extension (S1) 5 Normal Abduction 5 Normal Adduction 5 Normal External Rotation 5 Normal Internal Rotation 5 Normal PT-OP-Q Treatments Start: 04/24/18 10:51 Freq: Status: Active Protocol: Document 05/16/18 16:25 EA (Rec: 05/23/18 07:33 EA [id number]) Cardio Equipment Elliptical Duration (Minutes) 5 Resistance 4 Gym Equipment Shuttle Recovery Unilateral Squats Resistance 3-4 cords Shuttle Recovery Platform Stable Reps/Time x 15 reps x 2 sets Shuttle Balance 1 Details fwd/bwd/ swd tilt Reps/Duration x 10 mins Comments x 10 mins Therapeutic Exercises Supine Exercises 2 Supine Exercise Name knee to chest stretch 1 Supine Exercise Name hip flexor stretch Side right Reps/Minutes 2 x 30 Sitting Exercises 2 Sitting Exercise Name Hip flexion Side right Resistance 2lbs Reps/Minutes x 12 reps x 2 1 Sitting Exercise Name hip ER/IR Side right Resistance GTB Reps/Minutes x 12 reps x 2 sets Standing Exercises 3 Standing Exercise Name 90 deg squat Side bilateral Resistance GTB above the knee Reps/Minutes x 12 reps x 2 sets 2 Standing Exercise Name fwd lunges Side right Reps/Minutes x 12 ft x 6 lines Comments t-bal half trunk rot 1 Standing Exercise Name Side step squart Side right Resistance GTB to both ankles Manual Therapy Treatment Joint Mobilizations 1 Joint Fadi axis distraction Direction post Grade II Body Position Supine Reps/Duration x 5 mins PT-OP-R Modalities Start: 04/24/18 10:51 Freq: Status: Active Protocol: Document 05/16/18 16:25 EA (Rec: 05/23/18 07:33 EA [id number]) Hot Pack/Cold Pack Treatment Cold Pack Location right hip Patient Position Hooklying Treatment Duration (minutes) 10 Patient Tolerance Good PT-OP-T Assessment and Plan Start: 04/24/18 10:51 Freq: Status: Active Protocol: Document 05/16/18 16:30 EA (Rec: 05/23/18 09:02 EA [id number]) Physical Therapy Assessment Assessment Summary Assessment Pt shows slight difficulty with sitted R hip flexion knee bent due to mild discomfort to inner groin; denies numbness and sharp pain. No noted signs of gait deviation or difficulty with standing exercises. I recommended to a day rest in between personal yoga exercises and HEP. I explained that hip recovery after exercises is not happening due to no rest/ recovery. Physical Therapy Plan Next Visit Focus/Plan Next Note Type Treatment Note
--- NOTE | 2018-05-23 12:03 | PT.OTN ---
Current Diagnoses Other sprain of right hip, initial encounter (05/23/18) Physical Therapy Treatment Note PT-OP-A Visit Information Start: 04/24/18 10:51 Freq: Status: Active Protocol: Document 05/23/18 11:13 EA (Rec: 05/23/18 11:17 EA [id number]) Out-Patient Physical Therapy Visit Information Visit Information Visit Type Treatment Note Visit Start Time 10:30 Visit Stop Time 11:20 Total Visit Minutes 50 Visit Number 4 PT-OP-B Current Condition Start: 04/24/18 10:51 Freq: Status: Active Protocol: Document 04/24/18 12:20 EA (Rec: 04/24/18 12:38 EA [id number]) Current Condition History of Current Condition Onset Date 1 1/2 year ago Current Complaints Right hip throbbing pain History of Current Condition Present condition strated a year and half ago with no history of injury. Previous PT treatment six months ago was due to right low back and SI joint pain was resolved through surgery on October 2017. Medical reports reveals labral tear to right w/ detached labral fragments. Patient reffered to PT for evaluation and treatment. Prior Treatments and Tests August 2017: Formal PT treatment for right low back and SI joint pain Future Testing and Treatments Planned None Identified but patient is not motivated to undergo surgery as possible. Treatment Goals Patient/Caregiver Goals Patient would like to strengthen right hip. 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 Function- Recreation/Hobbies Able to play soccer with her kids and perform fitness/yoga exercises with no limitation Current Functional Impairments (Reported) Functional Limitations- ADL's Indep with minimal difficulty with all activities that requires deep squating Functional Limitations- Mobility/Gait Limited with long standing walking due to increased in hip pain Functional Limitations- Work/School Limited with long time sitting position Functional Limitations- Recreation/ Increased pain with activities Hobbies that requires deep squatting and agility PT-OP-C Subjective Start: 04/24/18 10:51 Freq: Status: Active Protocol: Document 05/23/18 11:13 EA (Rec: 05/23/18 11:17 EA [id number]) OP-PT Subjective Patient Comments Patient Comments Pt reorts had 3 days no hip discomfort at home after resting hip with no personal fitness exercises; states today is quite sore after yesterday waork. PT-OP-D Balance Start: 04/24/18 10:51 Freq: Status: Active Protocol: Document 04/24/18 12:38 EA (Rec: 04/24/18 13:10 EA [id number]) Balance Tests Single Limb Standing Single Limb- Right able <10 secs Single Limb- Left able > 10 sec PT-OP-E Functional Tests Start: 04/24/18 10:51 Freq: Status: Active Protocol: Document 04/24/18 12:38 EA (Rec: 04/24/18 13:10 EA [id number]) Functional Tests Other 1 Name of Test Deep/full squat Comment Mild difficulty to right hip PT-OP-F Manual Assessment Start: 04/24/18 10:51 Freq: Status: Active Protocol: Document 04/24/18 12:38 EA (Rec: 04/24/18 13:10 EA [id number]) Manual Assessments Soft Tissue Assessment Soft Tissue Mobility Assessment Tight right hamstring Joint Mobility Assessment Joint Mobility Assessment Hypo mobility to right hip ( Flexion) PT-OP-G Mobility & Gait Start: 04/24/18 10:51 Freq: Status: Active Protocol: Document 04/24/18 12:38 EA (Rec: 04/24/18 13:10 EA [id number]) OP Gait Assessment Gait Gait Assistance Required: Independent Able to Maintain Weight Bearing Status Yes During Gait Gait Deviations General Gait Pattern Antalgic Comments Gait Comments Miled antalgic to right leg; slight decreased right leg stance phase PT-OP-J Posture/Palpation/Skin Start: 04/24/18 10:51 Freq: Status: Active Protocol: Document 04/24/18 12:38 EA (Rec: 04/24/18 13:10 EA [id number]) Posture Evaluation Comments Posture Comments Good general body posture with slight increased low back pain PT-OP-K Range of Motion Start: 04/24/18 10:51 Freq: Status: Active Protocol: Document 04/24/18 12:38 EA (Rec: 04/24/18 13:10 EA [id number]) Hip Goniometric Range of Motion Hip Measured in Degrees Right Passive Testing Position Supine Flexion w/Knee Flexed 125 Right Active Testing Position Supine Flexion w/Knee Flexed 110 Left Active Hip ROM WFL Yes Flexion w/Knee Flexed 130 Hip ROM Limitations Hip ROM Limitations Pain PT-OP-L Special Tests Start: 04/24/18 10:51 Freq: Status: Active Protocol: Document 04/24/18 12:38 EA (Rec: 04/24/18 13:10 EA [id number]) Special Tests Hip Special Tests Scour Test Test Results negative ALYCIA Test Results positive Paola's Test Test Results negative Other Special Tests Special Tests Hip Labral tests (F/ADD/IR): Positive PT-OP-M Strength Start: 04/24/18 10:51 Freq: Status: Active Protocol: Document 04/24/18 12:38 EA (Rec: 04/24/18 13:10 EA [id number]) Hip Strength Hip Manual Muscle Testing Right Flexion (L2) 4 Good Extension (S1) 5 Normal Abduction 5 Normal Adduction 4+ Good+ External Rotation 5 Normal Internal Rotation 4 Good Left Flexion (L2) 5 Normal Extension (S1) 5 Normal Abduction 5 Normal Adduction 5 Normal External Rotation 5 Normal Internal Rotation 5 Normal PT-OP-Q Treatments Start: 04/24/18 10:51 Freq: Status: Active Protocol: Document 05/23/18 11:13 EA (Rec: 05/23/18 11:17 EA [id number]) Therapeutic Exercises Supine Exercises 2 Supine Exercise Name knee to chest stretch 1 Supine Exercise Name hip flexor stretch Side right Reps/Minutes 2 x 30 Prone Exercises 1 Prone Exercise Name Prone right leg HIP ext, ABD, knee in Side right Reps/Minutes x 30 secs x 2sets Sitting Exercises 2 Sitting Exercise Name Hip flexion Side right Resistance 2lbs Reps/Minutes x 12 reps x 2 1 Sitting Exercise Name hip ER/IR Side right Resistance GTB Reps/Minutes x 12 reps x 2 sets Standing Exercises 4 Standing Exercise Name Steady left lunge hip hike Side left Resistance 2 lbs to right ankle Reps/Minutes x 10 reps x 2 sets 3 Standing Exercise Name 90 deg squat Side bilateral Resistance GTB above the knee Reps/Minutes x 12 reps x 2 sets 2 Standing Exercise Name fwd lunges Side right Reps/Minutes x 12 ft x 6 lines Comments t-bal half trunk rot 1 Standing Exercise Name Side step squart Side right Resistance GTB to both ankles PT-OP-R Modalities Start: 04/24/18 10:51 Freq: Status: Active Protocol: Document 05/23/18 11:13 EA (Rec: 05/23/18 11:17 EA [id number]) Hot Pack/Cold Pack Treatment Cold Pack Location right hip Patient Position Hooklying Treatment Duration (minutes) 10 Patient Tolerance Good PT-OP-T Assessment and Plan Start: 04/24/18 10:51 Freq: Status: Active Protocol: Document 05/23/18 11:13 EA (Rec: 05/23/18 11:17 EA [id number]) Physical Therapy Assessment Assessment Summary Assessment Tolerated treatment with minor discomfort during right piriformis stretch. Patient will cont. to benefit with current plan. Recommend to sched 3 more weeks. Physical Therapy Plan Next Visit Focus/Plan Next Note Type Treatment Note
--- NOTE | 2018-05-30 13:41 | PT.OTN ---
Current Diagnoses Other sprain of right hip, initial encounter (05/30/18) Physical Therapy Treatment Note PT-OP-A Visit Information Start: 04/24/18 10:51 Freq: Status: Active Protocol: Document 05/30/18 13:35 [facility] (Rec: 05/30/18 13:39 [facility] [id number]) Out-Patient Physical Therapy Visit Information Visit Information Visit Type Treatment Note Visit Start Time 09:45 Visit Stop Time 10:30 Total Visit Minutes 45 Visit Number 5 PT-OP-B Current Condition Start: 04/24/18 10:51 Freq: Status: Active Protocol: Document 04/24/18 12:20 EA (Rec: 04/24/18 12:38 EA [id number]) Current Condition History of Current Condition Onset Date 1 1/2 year ago Current Complaints Right hip throbbing pain History of Current Condition Present condition strated a year and half ago with no history of injury. Previous PT treatment six months ago was due to right low back and SI joint pain was resolved through surgery on October 2017. Medical reports reveals labral tear to right w/ detached labral fragments. Patient reffered to PT for evaluation and treatment. Prior Treatments and Tests August 2017: Formal PT treatment for right low back and SI joint pain Future Testing and Treatments Planned None Identified but patient is not motivated to undergo surgery as possible. Treatment Goals Patient/Caregiver Goals Patient would like to strengthen right hip. 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 Function- Recreation/Hobbies Able to play soccer with her kids and perform fitness/yoga exercises with no limitation Current Functional Impairments (Reported) Functional Limitations- ADL's Indep with minimal difficulty with all activities that requires deep squating Functional Limitations- Mobility/Gait Limited with long standing walking due to increased in hip pain Functional Limitations- Work/School Limited with long time sitting position Functional Limitations- Recreation/ Increased pain with activities Hobbies that requires deep squatting and agility PT-OP-C Subjective Start: 04/24/18 10:51 Freq: Status: Active Protocol: Document 05/30/18 13:35 [facility] (Rec: 05/30/18 13:41 [facility] [id number]) OP-PT Subjective Patient Comments Patient Comments Pt reports she doesn't feel like she is getting better with exercise. Notes she is indep with HEP and consistent with it. AFter 3 days of work, she has to have a very inactive weekened d/t pain. PT-OP-D Balance Start: 04/24/18 10:51 Freq: Status: Active Protocol: Document 04/24/18 12:38 EA (Rec: 04/24/18 13:10 EA [id number]) Balance Tests Single Limb Standing Single Limb- Right able <10 secs Single Limb- Left able > 10 sec PT-OP-E Functional Tests Start: 04/24/18 10:51 Freq: Status: Active Protocol: Document 04/24/18 12:38 EA (Rec: 04/24/18 13:10 EA [id number]) Functional Tests Other 1 Name of Test Deep/full squat Comment Mild difficulty to right hip PT-OP-F Manual Assessment Start: 04/24/18 10:51 Freq: Status: Active Protocol: Document 04/24/18 12:38 EA (Rec: 04/24/18 13:10 EA [id number]) Manual Assessments Soft Tissue Assessment Soft Tissue Mobility Assessment Tight right hamstring Joint Mobility Assessment Joint Mobility Assessment Hypo mobility to right hip ( Flexion) PT-OP-G Mobility & Gait Start: 04/24/18 10:51 Freq: Status: Active Protocol: Document 04/24/18 12:38 EA (Rec: 04/24/18 13:10 EA [id number]) OP Gait Assessment Gait Gait Assistance Required: Independent Able to Maintain Weight Bearing Status Yes During Gait Gait Deviations General Gait Pattern Antalgic Comments Gait Comments Miled antalgic to right leg; slight decreased right leg stance phase PT-OP-J Posture/Palpation/Skin Start: 04/24/18 10:51 Freq: Status: Active Protocol: Document 04/24/18 12:38 EA (Rec: 04/24/18 13:10 EA [id number]) Posture Evaluation Comments Posture Comments Good general body posture with slight increased low back pain PT-OP-K Range of Motion Start: 04/24/18 10:51 Freq: Status: Active Protocol: Document 04/24/18 12:38 EA (Rec: 04/24/18 13:10 EA [id number]) Hip Goniometric Range of Motion Hip Measured in Degrees Right Passive Testing Position Supine Flexion w/Knee Flexed 125 Right Active Testing Position Supine Flexion w/Knee Flexed 110 Left Active Hip ROM WFL Yes Flexion w/Knee Flexed 130 Hip ROM Limitations Hip ROM Limitations Pain PT-OP-L Special Tests Start: 04/24/18 10:51 Freq: Status: Active Protocol: Document 04/24/18 12:38 EA (Rec: 04/24/18 13:10 EA [id number]) Special Tests Hip Special Tests Scour Test Test Results negative ALYCIA Test Results positive Paola's Test Test Results negative Other Special Tests Special Tests Hip Labral tests (F/ADD/IR): Positive PT-OP-M Strength Start: 04/24/18 10:51 Freq: Status: Active Protocol: Document 04/24/18 12:38 EA (Rec: 04/24/18 13:10 EA [id number]) Hip Strength Hip Manual Muscle Testing Right Flexion (L2) 4 Good Extension (S1) 5 Normal Abduction 5 Normal Adduction 4+ Good+ External Rotation 5 Normal Internal Rotation 4 Good Left Flexion (L2) 5 Normal Extension (S1) 5 Normal Abduction 5 Normal Adduction 5 Normal External Rotation 5 Normal Internal Rotation 5 Normal PT-OP-Q Treatments Start: 04/24/18 10:51 Freq: Status: Active Protocol: Document 05/30/18 13:35 [facility] (Rec: 05/30/18 13:39 [facility] [id number]) Therapeutic Exercises Supine Exercises HS Supine Exercise Name 3 plane HS c/r stretch Manual Therapy Treatment Soft Tissue Mobilization 1 Body Location iliacus Mobilization Type Sustained Pressure Intensity/Depth Superficial Body Position Supine Joint Mobilizations hip Joint hip R Direction inf glide in open packed & slight IR position FM Comments post FM Manual Techniques HS Type 3 plane c/r HS stretch PT-OP-R Modalities Start: 04/24/18 10:51 Freq: Status: Active Protocol: Document 05/23/18 11:13 EA (Rec: 05/23/18 11:17 EA [id number]) Hot Pack/Cold Pack Treatment Cold Pack Location right hip Patient Position Hooklying Treatment Duration (minutes) 10 Patient Tolerance Good PT-OP-T Assessment and Plan Start: 04/24/18 10:51 Freq: Status: Active Protocol: Document 05/30/18 13:35 [facility] (Rec: 05/30/18 13:39 [facility] [id number]) Physical Therapy Assessment Assessment Summary Assessment Pt had significant inc hip flexion and IR & combo of 2 after manual work. Improved HS mobility with c/r stretch Physical Therapy Plan Frequency and Duration Frequency of Treatment 1x/Week Duration of Treatment 8 wks Plan of Care Start Date 04/24/18 Plan of Care End Date 06/19/18 Next Visit Focus/Plan Next Note Type Treatment Note Next Visit Plan Cont to work manual anteriorly and post hip; assess pelvis ( pubic bone etc) & add
--- NOTE | 2018-06-05 17:43 | PT.OTN ---
Current Diagnoses Other sprain of right hip, initial encounter (06/05/18) Physical Therapy Treatment Note PT-OP-A Visit Information Start: 04/24/18 10:51 Freq: Status: Active Protocol: Document 05/30/18 13:35 [facility] (Rec: 05/30/18 13:39 [facility] [id number]) Out-Patient Physical Therapy Visit Information Visit Information Visit Type Treatment Note Visit Start Time 09:45 Visit Stop Time 10:30 Total Visit Minutes 45 Visit Number 5 PT-OP-B Current Condition Start: 04/24/18 10:51 Freq: Status: Active Protocol: Document 04/24/18 12:20 EA (Rec: 04/24/18 12:38 EA [id number]) Current Condition History of Current Condition Onset Date 1 1/2 year ago Current Complaints Right hip throbbing pain History of Current Condition Present condition strated a year and half ago with no history of injury. Previous PT treatment six months ago was due to right low back and SI joint pain was resolved through surgery on October 2017. Medical reports reveals labral tear to right w/ detached labral fragments. Patient reffered to PT for evaluation and treatment. Prior Treatments and Tests August 2017: Formal PT treatment for right low back and SI joint pain Future Testing and Treatments Planned None Identified but patient is not motivated to undergo surgery as possible. Treatment Goals Patient/Caregiver Goals Patient would like to strengthen right hip. 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 Function- Recreation/Hobbies Able to play soccer with her kids and perform fitness/yoga exercises with no limitation Current Functional Impairments (Reported) Functional Limitations- ADL's Indep with minimal difficulty with all activities that requires deep squating Functional Limitations- Mobility/Gait Limited with long standing walking due to increased in hip pain Functional Limitations- Work/School Limited with long time sitting position Functional Limitations- Recreation/ Increased pain with activities Hobbies that requires deep squatting and agility PT-OP-C Subjective Start: 04/24/18 10:51 Freq: Status: Active Protocol: Document 06/05/18 17:36 [facility] (Rec: 06/05/18 17:43 [facility] [id number]) OP-PT Subjective Patient Comments Patient Comments Nitza reports she sees the surgeon this monday. She tried riding her bike at home and was sore following the next day. PT-OP-D Balance Start: 04/24/18 10:51 Freq: Status: Active Protocol: Document 04/24/18 12:38 EA (Rec: 04/24/18 13:10 EA [id number]) Balance Tests Single Limb Standing Single Limb- Right able <10 secs Single Limb- Left able > 10 sec PT-OP-E Functional Tests Start: 04/24/18 10:51 Freq: Status: Active Protocol: Document 04/24/18 12:38 EA (Rec: 04/24/18 13:10 EA [id number]) Functional Tests Other 1 Name of Test Deep/full squat Comment Mild difficulty to right hip PT-OP-F Manual Assessment Start: 04/24/18 10:51 Freq: Status: Active Protocol: Document 04/24/18 12:38 EA (Rec: 04/24/18 13:10 EA [id number]) Manual Assessments Soft Tissue Assessment Soft Tissue Mobility Assessment Tight right hamstring Joint Mobility Assessment Joint Mobility Assessment Hypo mobility to right hip ( Flexion) PT-OP-G Mobility & Gait Start: 04/24/18 10:51 Freq: Status: Active Protocol: Document 04/24/18 12:38 EA (Rec: 04/24/18 13:10 EA [id number]) OP Gait Assessment Gait Gait Assistance Required: Independent Able to Maintain Weight Bearing Status Yes During Gait Gait Deviations General Gait Pattern Antalgic Comments Gait Comments Miled antalgic to right leg; slight decreased right leg stance phase PT-OP-J Posture/Palpation/Skin Start: 04/24/18 10:51 Freq: Status: Active Protocol: Document 04/24/18 12:38 EA (Rec: 04/24/18 13:10 EA [id number]) Posture Evaluation Comments Posture Comments Good general body posture with slight increased low back pain PT-OP-K Range of Motion Start: 04/24/18 10:51 Freq: Status: Active Protocol: Document 04/24/18 12:38 EA (Rec: 04/24/18 13:10 EA [id number]) Hip Goniometric Range of Motion Hip Measured in Degrees Right Passive Testing Position Supine Flexion w/Knee Flexed 125 Right Active Testing Position Supine Flexion w/Knee Flexed 110 Left Active Hip ROM WFL Yes Flexion w/Knee Flexed 130 Hip ROM Limitations Hip ROM Limitations Pain PT-OP-L Special Tests Start: 04/24/18 10:51 Freq: Status: Active Protocol: Document 04/24/18 12:38 EA (Rec: 04/24/18 13:10 EA [id number]) Special Tests Hip Special Tests Scour Test Test Results negative ALYCIA Test Results positive Paola's Test Test Results negative Other Special Tests Special Tests Hip Labral tests (F/ADD/IR): Positive PT-OP-M Strength Start: 04/24/18 10:51 Freq: Status: Active Protocol: Document 04/24/18 12:38 EA (Rec: 04/24/18 13:10 EA [id number]) Hip Strength Hip Manual Muscle Testing Right Flexion (L2) 4 Good Extension (S1) 5 Normal Abduction 5 Normal Adduction 4+ Good+ External Rotation 5 Normal Internal Rotation 4 Good Left Flexion (L2) 5 Normal Extension (S1) 5 Normal Abduction 5 Normal Adduction 5 Normal External Rotation 5 Normal Internal Rotation 5 Normal PT-OP-Q Treatments Start: 04/24/18 10:51 Freq: Status: Active Protocol: Document 06/05/18 17:36 [facility] (Rec: 06/05/18 17:43 [facility] [id number]) Cardio Equipment Recumbent Elliptical (Tealet) Duration (Minutes) 5 Manual Therapy Treatment Soft Tissue Mobilization 2 Body Location adductor release 1 Body Location iliacus Mobilization Type Sustained Pressure Intensity/Depth Superficial Body Position Supine Joint Mobilizations hip Joint hip R Direction inf glide in open packed & slight IR position FM Comments post FM 1 Joint Fadi axis distraction Direction post Grade II Body Position Supine Reps/Duration x 5 mins Manual Techniques 1 Type manual quad and ilipsoas stretch in a kofi test position HS Type 3 plane c/r HS stretch PT-OP-R Modalities Start: 04/24/18 10:51 Freq: Status: Active Protocol: Document 05/23/18 11:13 EA (Rec: 05/23/18 11:17 EA [id number]) Hot Pack/Cold Pack Treatment Cold Pack Location right hip Patient Position Hooklying Treatment Duration (minutes) 10 Patient Tolerance Good PT-OP-T Assessment and Plan Start: 04/24/18 10:51 Freq: Status: Active Protocol: Document 06/05/18 17:36 [facility] (Rec: 06/05/18 17:43 [facility] [id number]) Physical Therapy Assessment Assessment Summary Assessment worked on releasing the adductors and iliopsoas along with posterior hip capsule mobilizations. Nitza does gain ROM with manual treatment however pain relief appears to be limited and she is still very limited with her activity level. She has her appointment monday and will discuss surgical options. Physical Therapy Plan Frequency and Duration Frequency of Treatment 1x/Week Duration of Treatment 8 wks Plan of Care Start Date 04/24/18 Plan of Care End Date 06/19/18 Next Visit Focus/Plan Next Note Type Treatment Note Next Visit Plan Cont to work manual anteriorly and post hip; assess pelvis ( pubic bone etc) & add
--- NOTE | 2018-06-13 16:52 | PT.OTN ---
Current Diagnoses Other sprain of right hip, initial encounter (06/13/18) Physical Therapy Treatment Note PT-OP-A Visit Information Start: 04/24/18 10:51 Freq: Status: Active Protocol: Document 06/13/18 13:43 EA (Rec: 06/13/18 13:47 EA [id number]) Out-Patient Physical Therapy Visit Information Visit Information Visit Type Treatment Note Visit Start Time 13:00 Visit Stop Time 13:45 Total Visit Minutes 50 Visit Number 6 PT-OP-B Current Condition Start: 04/24/18 10:51 Freq: Status: Active Protocol: Document 04/24/18 12:20 EA (Rec: 04/24/18 12:38 EA [id number]) Current Condition History of Current Condition Onset Date 1 1/2 year ago Current Complaints Right hip throbbing pain History of Current Condition Present condition strated a year and half ago with no history of injury. Previous PT treatment six months ago was due to right low back and SI joint pain was resolved through surgery on October 2017. Medical reports reveals labral tear to right w/ detached labral fragments. Patient reffered to PT for evaluation and treatment. Prior Treatments and Tests August 2017: Formal PT treatment for right low back and SI joint pain Future Testing and Treatments Planned None Identified but patient is not motivated to undergo surgery as possible. Treatment Goals Patient/Caregiver Goals Patient would like to strengthen right hip. 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 Function- Recreation/Hobbies Able to play soccer with her kids and perform fitness/yoga exercises with no limitation Current Functional Impairments (Reported) Functional Limitations- ADL's Indep with minimal difficulty with all activities that requires deep squating Functional Limitations- Mobility/Gait Limited with long standing walking due to increased in hip pain Functional Limitations- Work/School Limited with long time sitting position Functional Limitations- Recreation/ Increased pain with activities Hobbies that requires deep squatting and agility PT-OP-C Subjective Start: 04/24/18 10:51 Freq: Status: Active Protocol: Document 06/13/18 13:43 EA (Rec: 06/13/18 13:47 EA [id number]) OP-PT Subjective Patient Comments Patient Comments Pt reports surgeon and her decided to undergo labral arthroscopic repair but no scheduled date yet. PT-OP-D Balance Start: 04/24/18 10:51 Freq: Status: Active Protocol: Document 04/24/18 12:38 EA (Rec: 04/24/18 13:10 EA [id number]) Balance Tests Single Limb Standing Single Limb- Right able <10 secs Single Limb- Left able > 10 sec PT-OP-E Functional Tests Start: 04/24/18 10:51 Freq: Status: Active Protocol: Document 04/24/18 12:38 EA (Rec: 04/24/18 13:10 EA [id number]) Functional Tests Other 1 Name of Test Deep/full squat Comment Mild difficulty to right hip PT-OP-F Manual Assessment Start: 04/24/18 10:51 Freq: Status: Active Protocol: Document 04/24/18 12:38 EA (Rec: 04/24/18 13:10 EA [id number]) Manual Assessments Soft Tissue Assessment Soft Tissue Mobility Assessment Tight right hamstring Joint Mobility Assessment Joint Mobility Assessment Hypo mobility to right hip ( Flexion) PT-OP-G Mobility & Gait Start: 04/24/18 10:51 Freq: Status: Active Protocol: Document 04/24/18 12:38 EA (Rec: 04/24/18 13:10 EA [id number]) OP Gait Assessment Gait Gait Assistance Required: Independent Able to Maintain Weight Bearing Status Yes During Gait Gait Deviations General Gait Pattern Antalgic Comments Gait Comments Miled antalgic to right leg; slight decreased right leg stance phase PT-OP-J Posture/Palpation/Skin Start: 04/24/18 10:51 Freq: Status: Active Protocol: Document 04/24/18 12:38 EA (Rec: 04/24/18 13:10 EA [id number]) Posture Evaluation Comments Posture Comments Good general body posture with slight increased low back pain PT-OP-K Range of Motion Start: 04/24/18 10:51 Freq: Status: Active Protocol: Document 04/24/18 12:38 EA (Rec: 04/24/18 13:10 EA [id number]) Hip Goniometric Range of Motion Hip Measured in Degrees Right Passive Testing Position Supine Flexion w/Knee Flexed 125 Right Active Testing Position Supine Flexion w/Knee Flexed 110 Left Active Hip ROM WFL Yes Flexion w/Knee Flexed 130 Hip ROM Limitations Hip ROM Limitations Pain PT-OP-L Special Tests Start: 04/24/18 10:51 Freq: Status: Active Protocol: Document 04/24/18 12:38 EA (Rec: 04/24/18 13:10 EA [id number]) Special Tests Hip Special Tests Scour Test Test Results negative ALYCIA Test Results positive Paola's Test Test Results negative Other Special Tests Special Tests Hip Labral tests (F/ADD/IR): Positive PT-OP-M Strength Start: 04/24/18 10:51 Freq: Status: Active Protocol: Document 04/24/18 12:38 EA (Rec: 04/24/18 13:10 EA [id number]) Hip Strength Hip Manual Muscle Testing Right Flexion (L2) 4 Good Extension (S1) 5 Normal Abduction 5 Normal Adduction 4+ Good+ External Rotation 5 Normal Internal Rotation 4 Good Left Flexion (L2) 5 Normal Extension (S1) 5 Normal Abduction 5 Normal Adduction 5 Normal External Rotation 5 Normal Internal Rotation 5 Normal PT-OP-Q Treatments Start: 04/24/18 10:51 Freq: Status: Active Protocol: Document 06/13/18 13:43 EA (Rec: 06/13/18 13:47 EA [id number]) Cardio Equipment Bicycle (Upright) Duration (Minutes) 5 Resistance 4 Seat Position 2 Therapeutic Exercises Supine Exercises HS Supine Exercise Name 3 plane HS c/r stretch Resistance 2 lbs 2 Supine Exercise Name knee to chest stretch 1 Supine Exercise Name hip flexor stretch Side right Reps/Minutes 2 x 30 Prone Exercises 1 Prone Exercise Name Prone right leg HIP ext, ABD, knee in Side right Reps/Minutes x 30 secs x 2sets Sitting Exercises 1 Sitting Exercise Name hip ER/IR Side right Resistance GTB Reps/Minutes x 12 reps x 2 sets Standing Exercises 4 Standing Exercise Name Steady left lunge hip hike Side left Resistance 2 lbs to right ankle Reps/Minutes x 10 reps x 2 sets 3 Standing Exercise Name 90 deg squat Side bilateral Resistance GTB above the knee Reps/Minutes x 12 reps x 2 sets 2 Standing Exercise Name fwd lunges Side right Reps/Minutes x 12 ft x 6 lines Comments t-bal half trunk rot 1 Standing Exercise Name Side step squart Side right Resistance GTB to both ankles PT-OP-R Modalities Start: 04/24/18 10:51 Freq: Status: Active Protocol: Document 06/13/18 13:43 EA (Rec: 06/13/18 13:47 EA [id number]) Hot Pack/Cold Pack Treatment Cold Pack Location right hip Patient Position Hooklying Treatment Duration (minutes) 10 Patient Tolerance Good PT-OP-T Assessment and Plan Start: 04/24/18 10:51 Freq: Status: Active Protocol: Document 06/13/18 13:43 EA (Rec: 06/13/18 13:47 EA [id number]) Physical Therapy Assessment Assessment Summary Assessment Tolerated treatment well with no discomfort noted. Patient to see every 2 weeks. Physical Therapy Plan Next Visit Focus/Plan Next Note Type Treatment Note
--- NOTE | 2018-07-18 15:43 | PT.OTRE ---
Current Diagnoses Other sprain of right hip, initial encounter (07/18/18) Past Medical History (Last Reviewed 03/28/18 @ 13:29 by Kathie Richardson DO) Acne (Chronic) Hypothyroidism (Chronic) Asthma (Resolved) Lipoma (Resolved 2017) (spontaneous vaginal delivery) (Resolved 2006) (spontaneous vaginal delivery) (Resolved 2010) Shingles (Resolved) Surgical History (Last Reviewed 03/28/18 @ 13:29 by Kathie Richardson DO) Anesthesia (Resolved) History of endometrial ablation (Resolved 10/17/14) History of surgery (Resolved) Status post excision of lipoma (Resolved 10/12/17) Status post tonsillectomy and adenoidectomy (Resolved ~1997) Provider Visit Care Team Role Provider Type Kathie Richardson DO Attending Provider Physician Primary Care Provider Specialty: [facility] Practice Address: [address] [place] [address], [facility] Email: [email or web address] Physical Therapy Re-Evaluation PT-OP-A Visit Information Start: 04/24/18 10:51 Freq: Status: Active Protocol: Document 07/18/18 13:13 [facility] (Rec: 07/18/18 13:46 [facility] [id number]) Out-Patient Physical Therapy Visit Information Visit Information Visit Type Re-Evaluation Visit Start Time 09:45 Visit Stop Time 10:30 Total Visit Minutes 45 Visit Number 1/12 Number of HISTORICAL INTERPRETER Visits 0 PT-OP-B Current Condition Start: 04/24/18 10:51 Freq: Status: Active Protocol: Document 07/18/18 13:13 [facility] (Rec: 07/18/18 13:46 [facility] [id number]) Current Condition History of Current Condition Onset Date 1 1/2 year ago Current Complaints R hip ant pain History of Current Condition Pt is s/p R hip arthroscopic debridement-w/TTWB until 3 weeks post op. She has been compliant with crutches and feels like pain is improved. Per pt, she was told they just shaved down and debrided the tear. PMH:Present condition strated a year and half ago with no history of injury. Previous PT treatment six months ago was due to right low back and SI joint pain was resolved through surgery on October 2017. Medical reports reveals labral tear to right w/ detached labral fragments. Patient reffered to PT for evaluation and treatment. Prior Treatments and Tests August 2017: Formal PT treatment for right low back and SI joint pain Treatment Goals Patient/Caregiver Goals Return to playing with kids, riding bike, running, working out PT-OP-C Subjective Start: 04/24/18 10:51 Freq: Status: Active Protocol: Document 07/18/18 13:13 [facility] (Rec: 07/18/18 13:46 [facility] [id number]) OP-PT Pain Assessment Location R hip Pain Location Details ant Intensity 2 PT-OP-D Balance Start: 04/24/18 10:51 Freq: Status: Active Protocol: Document 04/24/18 12:38 EA (Rec: 04/24/18 13:10 EA [id number]) Balance Tests Single Limb Standing Single Limb- Right able <10 secs Single Limb- Left able > 10 sec PT-OP-E Functional Tests Start: 04/24/18 10:51 Freq: Status: Active Protocol: Document 04/24/18 12:38 EA (Rec: 04/24/18 13:10 EA [id number]) Functional Tests Other 1 Name of Test Deep/full squat Comment Mild difficulty to right hip PT-OP-F Manual Assessment Start: 04/24/18 10:51 Freq: Status: Active Protocol: Document 04/24/18 12:38 EA (Rec: 04/24/18 13:10 EA [id number]) Manual Assessments Soft Tissue Assessment Soft Tissue Mobility Assessment Tight right hamstring Joint Mobility Assessment Joint Mobility Assessment Hypo mobility to right hip ( Flexion) PT-OP-G Mobility & Gait Start: 04/24/18 10:51 Freq: Status: Active Protocol: Document 07/18/18 13:13 [facility] (Rec: 07/18/18 13:46 [facility] [id number]) OP Gait Assessment Comments Gait Comments Amb w/hop pattern w/crutches PT-OP-J Posture/Palpation/Skin Start: 04/24/18 10:51 Freq: Status: Active Protocol: Document 04/24/18 12:38 EA (Rec: 04/24/18 13:10 EA [id number]) Posture Evaluation Comments Posture Comments Good general body posture with slight increased low back pain PT-OP-K Range of Motion Start: 04/24/18 10:51 Freq: Status: Active Protocol: Document 04/24/18 12:38 EA (Rec: 04/24/18 13:10 EA [id number]) Hip Goniometric Range of Motion Hip Measured in Degrees Right Passive Testing Position Supine Flexion w/Knee Flexed 125 Right Active Testing Position Supine Flexion w/Knee Flexed 110 Left Active Hip ROM WFL Yes Flexion w/Knee Flexed 130 Hip ROM Limitations Hip ROM Limitations Pain PT-OP-L Special Tests Start: 04/24/18 10:51 Freq: Status: Active Protocol: Document 04/24/18 12:38 EA (Rec: 04/24/18 13:10 EA [id number]) Special Tests Hip Special Tests Scour Test Test Results negative ALYCIA Test Results positive Paola's Test Test Results negative Other Special Tests Special Tests Hip Labral tests (F/ADD/IR): Positive PT-OP-M Strength Start: 04/24/18 10:51 Freq: Status: Active Protocol: Document 04/24/18 12:38 EA (Rec: 04/24/18 13:10 EA [id number]) Hip Strength Hip Manual Muscle Testing Right Flexion (L2) 4 Good Extension (S1) 5 Normal Abduction 5 Normal Adduction 4+ Good+ External Rotation 5 Normal Internal Rotation 4 Good Left Flexion (L2) 5 Normal Extension (S1) 5 Normal Abduction 5 Normal Adduction 5 Normal External Rotation 5 Normal Internal Rotation 5 Normal PT-OP-Q Treatments Start: 04/24/18 10:51 Freq: Status: Active Protocol: Document 07/18/18 13:13 LR (Rec: 07/18/18 13:46 LR [id number]) Therapeutic Exercises Supine Exercises hip abd Supine Exercise Name hip abd Side right Reps/Minutes 8 isometric Supine Exercise Name quad and glute sets Side bilateral Reps/Minutes 10 pelvic tilt Supine Exercise Name post tilt Reps/Minutes 5 HS Supine Exercise Name HS stretch Side bilateral Reps/Minutes 30 sec hold 2 Supine Exercise Name hip IR/ER w/core Side bilateral Reps/Minutes 10 Comments small comfortable range 1 Supine Exercise Name Heel slides w/core Side bilateral Reps/Minutes 8 Sitting Exercises 2 Sitting Exercise Name LAQ & HS flex Side right Reps/Minutes 10 Manual Therapy Treatment Soft Tissue Mobilization 2 Body Location glutes & HS Mobilization Type Rolling Comments in HS stretch position PT-OP-R Modalities Start: 04/24/18 10:51 Freq: Status: Active Protocol: Document 06/13/18 13:43 EA (Rec: 06/13/18 13:47 EA [id number]) Hot Pack/Cold Pack Treatment Cold Pack Location right hip Patient Position Hooklying Treatment Duration (minutes) 10 Patient Tolerance Good PT-OP-T Assessment and Plan Start: 04/24/18 10:51 Freq: Status: Active Protocol: Document 07/18/18 13:13 [facility] (Rec: 07/18/18 13:46 [facility] [id number]) Physical Therapy Assessment Evaluation Complexity Number of Personal Factors/Comorbidities 1-2 Number of Body Systems Impaired 4 or More Clinical Presentation at Evaluation Evolving Impairments Impairments Activity Tolerance Balance Functional Activities Functional Mobility Gait Pain Posture ROM Soft Tissue Mobility Strength Goals Four Impairment gait Short Term Goal (STG) Pt will amb w/good mechanics w /o AD STG Duration 08/24/18 Three Impairment strength Short Term Goal (STG) Pt will be indep with HEP STG Duration 08/17/18 Retirement Goal (LTG) 5/5 LE strength to allow pt to return to active lifestyle LTG Duration 09/17/18 Two Impairment activties Short Term Goal (STG) Pt will be able to return to work. STG Duration 08/24/18 Retirement Goal (LTG) Pt will note being able to resume exercise program of light to moderate intensity. LTG Duration 09/17/18 Assessment Summary Assessment Pt presents 2 weeks s/p R hip arthroscopic debridement with TTWB orders at this time until 3 week post op. Pt is then allowed to progress to WB as tolerated. She is motivated and has overall dec strength & ROM at this time d/t weakness , and inflammation after surgery. strength & ROM were not tested d/t recent surgery. Physical Therapy Plan Frequency and Duration Frequency of Treatment 2x/Week Duration of Treatment 2 months Plan of Care Start Date 07/18/18 Plan of Care End Date 09/17/18 Therapeutic Interventions Therapeutic Interventions Aquatic Therapy Balance Training Gait Training Home Exercise Program Joint Mobilizations Manual Therapy Neuromuscular Re-education Patient/Caregiver Education Self-Care/Home Management Soft Tissue Mobilization Taping Therapeutic Activities Therapeutic Exercises Modalities Cold Pack/Ice Massage Electric Stimulation Hot Packs Infrared Therapy Iontophoresis Ultrasound Next Visit Focus/Plan Next Note Type Treatment Note Next Visit Plan Advance WB & start standing & s/l exercises
--- NOTE | 2018-07-18 15:43 | PT.OPPOC ---
Current Diagnoses Other sprain of right hip, initial encounter (07/18/18) Provider Visit Care Team Role Provider Type Kathie Richardson DO Attending Provider Physician Primary Care Provider Specialty: Family Practice Address: [address] [place] [address], [id number] Email: [email or web address] Plan Of Care PT-OP-T Assessment and Plan Start: 04/24/18 10:51 Freq: Status: Active Protocol: Document 07/18/18 13:13 [facility] (Rec: 07/18/18 13:46 [facility] [id number]) Physical Therapy Assessment Evaluation Complexity Number of Personal Factors/Comorbidities 1-2 Number of Body Systems Impaired 4 or More Clinical Presentation at Evaluation Evolving Impairments Impairments Activity Tolerance Balance Functional Activities Functional Mobility Gait Pain Posture ROM Soft Tissue Mobility Strength Goals Four Impairment gait Short Term Goal (STG) Pt will amb w/good mechanics w /o AD STG Duration 08/24/18 Three Impairment strength Short Term Goal (STG) Pt will be indep with HEP STG Duration 08/17/18 Food Production Machine Operator Goal (LTG) 5/5 LE strength to allow pt to return to active lifestyle LTG Duration 09/17/18 Two Impairment activties Short Term Goal (STG) Pt will be able to return to work. STG Duration 08/24/18 Food Production Machine Operator Goal (LTG) Pt will note being able to resume exercise program of light to moderate intensity. LTG Duration 09/17/18 Assessment Summary Assessment Pt presents 2 weeks s/p R hip arthroscopic debridement with TTWB orders at this time until 3 week post op. Pt is then allowed to progress to WB as tolerated. She is motivated and has overall dec strength & ROM at this time d/t weakness , and inflammation after surgery. strength & ROM were not tested d/t recent surgery. Physical Therapy Plan Frequency and Duration Frequency of Treatment 2x/Week Duration of Treatment 2 months Plan of Care Start Date 07/18/18 Plan of Care End Date 09/17/18 Therapeutic Interventions Therapeutic Interventions Aquatic Therapy Balance Training Gait Training Home Exercise Program Joint Mobilizations Manual Therapy Neuromuscular Re-education Patient/Caregiver Education Self-Care/Home Management Soft Tissue Mobilization Taping Therapeutic Activities Therapeutic Exercises Modalities Cold Pack/Ice Massage Electric Stimulation Hot Packs Infrared Therapy Iontophoresis Ultrasound Next Visit Focus/Plan Next Note Type Treatment Note Next Visit Plan Advance WB & start standing & s/l exercises Plan of Care Dates Plan of Care Start Date 07/18/18 Plan of Care End Date 09/17/18 Please Sign and Return: I have reviewed this Plan of Care and certify that the skilled therapy services above are required to meet the patient?s needs. Physician Signature Date Printed Name and Credentials Clinical Instructor Signature Printed Name and Credentials
--- NOTE | 2018-07-25 13:14 | PT.OTN ---
Current Diagnoses Other sprain of right hip, initial encounter (07/25/18) Physical Therapy Treatment Note PT-OP-A Visit Information Start: 04/24/18 10:51 Freq: Status: Active Protocol: Document 07/25/18 13:06 [facility] (Rec: 07/25/18 13:14 [facility] [id number]) Out-Patient Physical Therapy Visit Information Visit Information Visit Type Treatment Note Visit Start Time 09:45 Visit Stop Time 10:40 Total Visit Minutes 55 Visit Number 2 Number of ASSISTANT BASKETBALL COACH Visits 0 PT-OP-B Current Condition Start: 04/24/18 10:51 Freq: Status: Active Protocol: Document 07/18/18 13:13 [facility] (Rec: 07/18/18 13:46 [facility] [id number]) Current Condition History of Current Condition Onset Date 1 1/2 year ago Current Complaints R hip ant pain History of Current Condition Pt is s/p R hip arthroscopic debridement-w/TTWB until 3 weeks post op. She has been compliant with crutches and feels like pain is improved. Per pt, she was told they just shaved down and debrided the tear. PMH:Present condition strated a year and half ago with no history of injury. Previous PT treatment six months ago was due to right low back and SI joint pain was resolved through surgery on October 2017. Medical reports reveals labral tear to right w/ detached labral fragments. Patient reffered to PT for evaluation and treatment. Prior Treatments and Tests August 2017: Formal PT treatment for right low back and SI joint pain Treatment Goals Patient/Caregiver Goals Return to playing with kids, riding bike, running, working out PT-OP-C Subjective Start: 04/24/18 10:51 Freq: Status: Active Protocol: Document 07/25/18 13:06 [facility] (Rec: 07/25/18 13:14 [facility] [id number]) OP-PT Subjective Patient Comments Patient Comments Pt reports she has been doing exercises. She is 3 weeks now so she has started putting her foot down more. PT-OP-D Balance Start: 04/24/18 10:51 Freq: Status: Active Protocol: Document 04/24/18 12:38 EA (Rec: 04/24/18 13:10 EA [id number]) Balance Tests Single Limb Standing Single Limb- Right able <10 secs Single Limb- Left able > 10 sec PT-OP-E Functional Tests Start: 04/24/18 10:51 Freq: Status: Active Protocol: Document 04/24/18 12:38 [facility] (Rec: 04/24/18 13:10 EA [id number]) Functional Tests Other 1 Name of Test Deep/full squat Comment Mild difficulty to right hip PT-OP-F Manual Assessment Start: 04/24/18 10:51 Freq: Status: Active Protocol: Document 04/24/18 12:38 [facility] (Rec: 04/24/18 13:10 EA [id number]) Manual Assessments Soft Tissue Assessment Soft Tissue Mobility Assessment Tight right hamstring Joint Mobility Assessment Joint Mobility Assessment Hypo mobility to right hip ( Flexion) PT-OP-G Mobility & Gait Start: 04/24/18 10:51 Freq: Status: Active Protocol: Document 07/18/18 13:13 [facility] (Rec: 07/18/18 13:46 [facility] [id number]) OP Gait Assessment Comments Gait Comments Amb w/hop pattern w/crutches PT-OP-J Posture/Palpation/Skin Start: 04/24/18 10:51 Freq: Status: Active Protocol: Document 04/24/18 12:38 [facility] (Rec: 04/24/18 13:10 EA [id number]) Posture Evaluation Comments Posture Comments Good general body posture with slight increased low back pain PT-OP-K Range of Motion Start: 04/24/18 10:51 Freq: Status: Active Protocol: Document 04/24/18 12:38 [facility] (Rec: 04/24/18 13:10 EA [id number]) Hip Goniometric Range of Motion Hip Measured in Degrees Right Passive Testing Position Supine Flexion w/Knee Flexed 125 Right Active Testing Position Supine Flexion w/Knee Flexed 110 Left Active Hip ROM WFL Yes Flexion w/Knee Flexed 130 Hip ROM Limitations Hip ROM Limitations Pain PT-OP-L Special Tests Start: 04/24/18 10:51 Freq: Status: Active Protocol: Document 04/24/18 12:38 EA (Rec: 04/24/18 13:10 EA [id number]) Special Tests Hip Special Tests Scour Test Test Results negative ALYCIA Test Results positive Paola's Test Test Results negative Other Special Tests Special Tests Hip Labral tests (F/ADD/IR): Positive PT-OP-M Strength Start: 04/24/18 10:51 Freq: Status: Active Protocol: Document 04/24/18 12:38 [facility] (Rec: 04/24/18 13:10 EA [id number]) Hip Strength Hip Manual Muscle Testing Right Flexion (L2) 4 Good Extension (S1) 5 Normal Abduction 5 Normal Adduction 4+ Good+ External Rotation 5 Normal Internal Rotation 4 Good Left Flexion (L2) 5 Normal Extension (S1) 5 Normal Abduction 5 Normal Adduction 5 Normal External Rotation 5 Normal Internal Rotation 5 Normal PT-OP-Q Treatments Start: 04/24/18 10:51 Freq: Status: Active Protocol: Document 07/25/18 13:06 [facility] (Rec: 07/25/18 13:14 [facility] [id number]) Therapeutic Exercises Supine Exercises 2 Supine Exercise Name hip IR/ER w/core Side bilateral Reps/Minutes 10 Comments small comfortable range Standing Exercises heel raises Standing Exercise Name double leg Side bilateral Reps/Minutes 20 4 Standing Exercise Name hip abd Side right Reps/Minutes 20 3 Standing Exercise Name hip ext Side right Reps/Minutes 15 2 Standing Exercise Name iliacus stretch Side right Reps/Minutes 30 sec 1 Standing Exercise Name knee flex Side right Reps/Minutes 20 Comments w/ knee directly under hip Gait Training Gait Activity crutches Description 2 and 1 crutch Comments WBAT for heel strike and push off w/use of mirror to avoid leaning. Manual Therapy Treatment Soft Tissue Mobilization 1 Body Location iliacus Mobilization Type Sustained Pressure Intensity/Depth Moderate Body Position Supine PT-OP-R Modalities Start: 04/24/18 10:51 Freq: Status: Active Protocol: Document 07/25/18 13:06 [facility] (Rec: 07/25/18 13:14 [facility] [id number]) Hot Pack/Cold Pack Treatment Cold Pack Location right hip Patient Position Hooklying Treatment Duration (minutes) 10 Patient Tolerance Good PT-OP-T Assessment and Plan Start: 04/24/18 10:51 Freq: Status: Active Protocol: Document 07/25/18 13:06 [facility] (Rec: 07/25/18 13:14 [facility] [id number]) Physical Therapy Assessment Goals Four Impairment gait Short Term Goal (STG) Pt will amb w/good mechanics w /o AD STG Duration 08/24/18 Three Impairment strength Short Term Goal (STG) Pt will be indep with HEP STG Duration 08/17/18 President/[employer] Live Experiences Goal (LTG) 5/ LE strength to allow pt to return to active lifestyle LTG Duration 09/17/18 Two Impairment activties Short Term Goal (STG) Pt will be able to return to work. STG Duration 08/24/18 President/[employer] Exper[employer] Goal (LTG) Pt will note being able to resume exercise program of light to moderate intensity. LTG Duration 09/17/18 Assessment Summary Assessment Pt was able to tolerate standing activities and improve gait with cueing and use of mirror. Physical Therapy Plan Frequency and Duration Frequency of Treatment 2x/Week Duration of Treatment 2 months Plan of Care Start Date 07/18/18 Plan of Care End Date 09/17/18 Next Visit Focus/Plan Next Note Type Treatment Note Next Visit Plan s/l strengthening & progress WB
--- NOTE | 2018-08-01 17:32 | PT.OTN ---
Current Diagnoses Other sprain of right hip, initial encounter (08/01/18) Physical Therapy Treatment Note PT-OP-A Visit Information Start: 04/24/18 10:51 Freq: Status: Active Protocol: Document 08/01/18 16:45 [facility] (Rec: 08/01/18 17:31 [facility] [id number]) Out-Patient Physical Therapy Visit Information Visit Information Visit Type Treatment Note Visit Start Time 16:45 Visit Stop Time 17:35 Total Visit Minutes 50 Visit Number 06/19 PT-OP-B Current Condition Start: 04/24/18 10:51 Freq: Status: Active Protocol: Document 07/18/18 13:13 [facility] (Rec: 07/18/18 13:46 [facility] [id number]) Current Condition History of Current Condition Onset Date 1 1/2 year ago Current Complaints R hip ant pain History of Current Condition Pt is s/p R hip arthroscopic debridement-w/TTWB until 3 weeks post op. She has been compliant with crutches and feels like pain is improved. Per pt, she was told they just shaved down and debrided the tear. PMH:Present condition strated a year and half ago with no history of injury. Previous PT treatment six months ago was due to right low back and SI joint pain was resolved through surgery on October 2017. Medical reports reveals labral tear to right w/ detached labral fragments. Patient reffered to PT for evaluation and treatment. Prior Treatments and Tests August 2017: Formal PT treatment for right low back and SI joint pain Treatment Goals Patient/Caregiver Goals Return to playing with kids, riding bike, running, working out PT-OP-C Subjective Start: 04/24/18 10:51 Freq: Status: Active Protocol: Document 08/01/18 16:45 [facility] (Rec: 08/01/18 17:31 [facility] [id number]) OP-PT Subjective Patient Comments Patient Comments Pt reports things have been going well, she was able to walk one mile total today, and spent five minutes on her stationary bike. PT-OP-D Balance Start: 04/24/18 10:51 Freq: Status: Active Protocol: Document 04/24/18 12:38 EA (Rec: 04/24/18 13:10 EA [id number]) Balance Tests Single Limb Standing Single Limb- Right able <10 secs Single Limb- Left able > 10 sec PT-OP-E Functional Tests Start: 04/24/18 10:51 Freq: Status: Active Protocol: Document 04/24/18 12:38 EA (Rec: 04/24/18 13:10 EA [id number]) Functional Tests Other 1 Name of Test Deep/full squat Comment Mild difficulty to right hip PT-OP-F Manual Assessment Start: 04/24/18 10:51 Freq: Status: Active Protocol: Document 04/24/18 12:38 EA (Rec: 04/24/18 13:10 EA [id number]) Manual Assessments Soft Tissue Assessment Soft Tissue Mobility Assessment Tight right hamstring Joint Mobility Assessment Joint Mobility Assessment Hypo mobility to right hip ( Flexion) PT-OP-G Mobility & Gait Start: 04/24/18 10:51 Freq: Status: Active Protocol: Document 07/18/18 13:13 [facility] (Rec: 07/18/18 13:46 [facility] [id number]) OP Gait Assessment Comments Gait Comments Amb w/hop pattern w/crutches PT-OP-J Posture/Palpation/Skin Start: 04/24/18 10:51 Freq: Status: Active Protocol: Document 04/24/18 12:38 EA (Rec: 04/24/18 13:10 EA [id number]) Posture Evaluation Comments Posture Comments Good general body posture with slight increased low back pain PT-OP-K Range of Motion Start: 04/24/18 10:51 Freq: Status: Active Protocol: Document 04/24/18 12:38 EA (Rec: 04/24/18 13:10 EA [id number]) Hip Goniometric Range of Motion Hip Measured in Degrees Right Passive Testing Position Supine Flexion w/Knee Flexed 125 Right Active Testing Position Supine Flexion w/Knee Flexed 110 Left Active Hip ROM WFL Yes Flexion w/Knee Flexed 130 Hip ROM Limitations Hip ROM Limitations Pain PT-OP-L Special Tests Start: 04/24/18 10:51 Freq: Status: Active Protocol: Document 04/24/18 12:38 EA (Rec: 04/24/18 13:10 EA [id number]) Special Tests Hip Special Tests Scour Test Test Results negative ALYCIA Test Results positive Paola's Test Test Results negative Other Special Tests Special Tests Hip Labral tests (F/ADD/IR): Positive PT-OP-M Strength Start: 04/24/18 10:51 Freq: Status: Active Protocol: Document 04/24/18 12:38 EA (Rec: 04/24/18 13:10 EA [id number]) Hip Strength Hip Manual Muscle Testing Right Flexion (L2) 4 Good Extension (S1) 5 Normal Abduction 5 Normal Adduction 4+ Good+ External Rotation 5 Normal Internal Rotation 4 Good Left Flexion (L2) 5 Normal Extension (S1) 5 Normal Abduction 5 Normal Adduction 5 Normal External Rotation 5 Normal Internal Rotation 5 Normal PT-OP-Q Treatments Start: 04/24/18 10:51 Freq: Status: Active Protocol: Document 08/01/18 16:45 [facility] (Rec: 08/01/18 17:31 [facility] [id number]) Gym Equipment Shuttle Recovery Bilateral Squats Resistance 50# Shuttle Recovery Platform Unstable Unilateral Squats Details Right Resistance 25# Shuttle Recovery Platform Stable Shuttle Balance 1 Details Red Comments Wide CARMEN, Staggered Stance, Lateral Weight Shift Therapeutic Ball Hip Flexion/Extension Exercise Details Hip Flexion vs T-band resistance Ball Size/Color Blue - 45 cm Lv 2 T-band Body Position Supine Bridging Exercise Details Bridging /c feet on T-ball Ball Size/Color Blue - 45 cm Body Position Supine Therapeutic Exercises Sidelying Exercises 1 Sidelying Exercise Name SL Psoas Stretch Comments Manual Standing Exercises 4 Standing Exercise Name hip abd Side bilateral Resistance 2# Reps/Minutes 20 3 Standing Exercise Name hip ext Side right Resistance 2# Reps/Minutes 15 Manual Therapy Treatment Soft Tissue Mobilization 1 Body Location iliacus Mobilization Type Sustained Pressure Intensity/Depth Moderate Body Position Supine PT-OP-R Modalities Start: 04/24/18 10:51 Freq: Status: Active Protocol: Document 08/01/18 16:45 [facility] (Rec: 08/01/18 17:31 [facility] [id number]) Hot Pack/Cold Pack Treatment Cold Pack Location right hip Patient Position Hooklying Treatment Duration (minutes) 10 Patient Tolerance Good PT-OP-T Assessment and Plan Start: 04/24/18 10:51 Freq: Status: Active Protocol: Document 08/01/18 16:45 [facility] (Rec: 08/01/18 17:31 [facility] [id number]) Physical Therapy Assessment Goals Four Impairment gait Short Term Goal (STG) Pt will amb w/good mechanics w /o AD STG Duration 08/24/18 Three Impairment strength Short Term Goal (STG) Pt will be indep with HEP STG Duration 08/17/18 Assisted Goal (LTG) 5/5 LE strength to allow pt to return to active lifestyle LTG Duration 09/17/18 Two Impairment activties Short Term Goal (STG) Pt will be able to return to work. STG Duration 08/24/18 Inspector Balance Wheel Motion Goal (LTG) Pt will note being able to resume exercise program of light to moderate intensity. LTG Duration 09/17/18 Assessment Summary Assessment Pt tolerated increased activity very well today, no complaints of pain or difficulty, just reported hip was tired at the end of her session. Ambulation has greatly improved, py walking / s AD and showing minimal-no sign of antalgic gait. Physical Therapy Plan Frequency and Duration Frequency of Treatment 2x/Week Duration of Treatment 2 months Plan of Care Start Date 07/18/18 Plan of Care End Date 09/17/18 Next Visit Focus/Plan Next Note Type Treatment Note Next Visit Plan s/l strengthening & progress WB
--- NOTE | 2018-08-07 17:37 | PT.OTN ---
Current Diagnoses Other sprain of right hip, initial encounter (08/07/18) Physical Therapy Treatment Note PT-OP-A Visit Information Start: 04/24/18 10:51 Freq: Status: Active Protocol: Document 08/07/18 17:30 [facility] (Rec: 08/07/18 17:37 [facility] [id number]) Out-Patient Physical Therapy Visit Information Visit Information Visit Type Treatment Note Visit Start Time 10:30 Visit Stop Time 11:15 Total Visit Minutes 45 Visit Number 4/12 Number of FINANCIAL ASSISTANCE ADVISOR Visits 0 PT-OP-B Current Condition Start: 04/24/18 10:51 Freq: Status: Active Protocol: Document 07/18/18 13:13 [facility] (Rec: 07/18/18 13:46 [facility] [id number]) Current Condition History of Current Condition Onset Date 1 1/2 year ago Current Complaints R hip ant pain History of Current Condition Pt is s/p R hip arthroscopic debridement-w/TTWB until 3 weeks post op. She has been compliant with crutches and feels like pain is improved. Per pt, she was told they just shaved down and debrided the tear. PMH:Present condition strated a year and half ago with no history of injury. Previous PT treatment six months ago was due to right low back and SI joint pain was resolved through surgery on October 2017. Medical reports reveals labral tear to right w/ detached labral fragments. Patient reffered to PT for evaluation and treatment. Prior Treatments and Tests August 2017: Formal PT treatment for right low back and SI joint pain Treatment Goals Patient/Caregiver Goals Return to playing with kids, riding bike, running, working out PT-OP-C Subjective Start: 04/24/18 10:51 Freq: Status: Active Protocol: Document 08/07/18 17:30 [facility] (Rec: 08/07/18 17:37 [facility] [id number]) OP-PT Subjective Patient Comments Patient Comments Nitza reports she has been able to ride her stationary bike x 10 minutes without any soreness following and has been walking approximately 1.5 miles PT-OP-D Balance Start: 04/24/18 10:51 Freq: Status: Active Protocol: Document 04/24/18 12:38 EA (Rec: 04/24/18 13:10 EA [id number]) Balance Tests Single Limb Standing Single Limb- Right able <10 secs Single Limb- Left able > 10 sec PT-OP-E Functional Tests Start: 04/24/18 10:51 Freq: Status: Active Protocol: Document 04/24/18 12:38 EA (Rec: 04/24/18 13:10 EA [id number]) Functional Tests Other 1 Name of Test Deep/full squat Comment Mild difficulty to right hip PT-OP-F Manual Assessment Start: 04/24/18 10:51 Freq: Status: Active Protocol: Document 04/24/18 12:38 EA (Rec: 04/24/18 13:10 EA [id number]) Manual Assessments Soft Tissue Assessment Soft Tissue Mobility Assessment Tight right hamstring Joint Mobility Assessment Joint Mobility Assessment Hypo mobility to right hip ( Flexion) PT-OP-G Mobility & Gait Start: 04/24/18 10:51 Freq: Status: Active Protocol: Document 07/18/18 13:13 [facility] (Rec: 07/18/18 13:46 [facility] [id number]) OP Gait Assessment Comments Gait Comments Amb w/hop pattern w/crutches PT-OP-J Posture/Palpation/Skin Start: 04/24/18 10:51 Freq: Status: Active Protocol: Document 04/24/18 12:38 EA (Rec: 04/24/18 13:10 EA [id number]) Posture Evaluation Comments Posture Comments Good general body posture with slight increased low back pain PT-OP-K Range of Motion Start: 04/24/18 10:51 Freq: Status: Active Protocol: Document 04/24/18 12:38 EA (Rec: 04/24/18 13:10 EA [id number]) Hip Goniometric Range of Motion Hip Measured in Degrees Right Passive Testing Position Supine Flexion w/Knee Flexed 125 Right Active Testing Position Supine Flexion w/Knee Flexed 110 Left Active Hip ROM WFL Yes Flexion w/Knee Flexed 130 Hip ROM Limitations Hip ROM Limitations Pain PT-OP-L Special Tests Start: 04/24/18 10:51 Freq: Status: Active Protocol: Document 04/24/18 12:38 EA (Rec: 04/24/18 13:10 EA [id number]) Special Tests Hip Special Tests Scour Test Test Results negative ALYCIA Test Results positive Paola's Test Test Results negative Other Special Tests Special Tests Hip Labral tests (F/ADD/IR): Positive PT-OP-M Strength Start: 04/24/18 10:51 Freq: Status: Active Protocol: Document 04/24/18 12:38 EA (Rec: 04/24/18 13:10 EA [id number]) Hip Strength Hip Manual Muscle Testing Right Flexion (L2) 4 Good Extension (S1) 5 Normal Abduction 5 Normal Adduction 4+ Good+ External Rotation 5 Normal Internal Rotation 4 Good Left Flexion (L2) 5 Normal Extension (S1) 5 Normal Abduction 5 Normal Adduction 5 Normal External Rotation 5 Normal Internal Rotation 5 Normal PT-OP-Q Treatments Start: 04/24/18 10:51 Freq: Status: Active Protocol: Document 08/07/18 17:30 [facility] (Rec: 08/07/18 17:37 [facility] [id number]) Cardio Equipment Bicycle (Upright) Duration (Minutes) 5 Resistance 4 Seat Position 3 Gym Equipment Shuttle Recovery Bilateral Squats Resistance 50# Shuttle Recovery Platform Unstable Reps/Time 30 reps Unilateral Squats Details Right Resistance 25# Shuttle Recovery Platform Stable Reps/Time x 20 reps Therapeutic Ball 1 Exercise Details ball rolls Ball Size/Color 55 cm Body Position Supine Reps/Duration x 20 Bridging Exercise Details Bridging /c feet on T-ball Ball Size/Color Blue - 45 cm Body Position Supine Therapeutic Exercises Supine Exercises 2 Supine Exercise Name hip IR/ER w/core Side bilateral Reps/Minutes 10 Comments small comfortable range Standing Exercises 5 Standing Exercise Name standing air squats in painfree ROM 2 Standing Exercise Name iliacus stretch Side right Reps/Minutes 30 sec Other Exercises 1 Other Exercise Name quadruped rock backs Reps/Minutes x 10 reps PT-OP-R Modalities Start: 04/24/18 10:51 Freq: Status: Active Protocol: Document 08/01/18 16:45 [facility] (Rec: 08/01/18 17:31 [facility] [id number]) Hot Pack/Cold Pack Treatment Cold Pack Location right hip Patient Position Hooklying Treatment Duration (minutes) 10 Patient Tolerance Good PT-OP-T Assessment and Plan Start: 04/24/18 10:51 Freq: Status: Active Protocol: Document 08/07/18 17:30 [facility] (Rec: 08/07/18 17:37 [facility] [id number]) Physical Therapy Assessment Assessment Summary Assessment Pt continues to be able to increase activity. She did try and drive to [place] and felt sore following this but walking for 1.5 miles and riding her bike x 10 minutes has been okay. She will try increasing her bike tolerance by 5 minutes this week. Physical Therapy Plan Frequency and Duration Frequency of Treatment 2x/Week Duration of Treatment 2 months Plan of Care Start Date 07/18/18 Plan of Care End Date 09/17/18 Therapeutic Interventions Therapeutic Interventions Aquatic Therapy Balance Training Gait Training Home Exercise Program Joint Mobilizations Manual Therapy Neuromuscular Re-education Patient/Caregiver Education Self-Care/Home Management Soft Tissue Mobilization Taping Therapeutic Activities Therapeutic Exercises Modalities Cold Pack/Ice Massage Electric Stimulation Hot Packs Infrared Therapy Iontophoresis Ultrasound Next Visit Focus/Plan Next Note Type Treatment Note Next Visit Plan assess how Nitza did trying out air squats and increasing her bike to 15 minutes
--- NOTE | 2018-08-15 14:35 | PT.OTN ---
Current Diagnoses Other sprain of right hip, initial encounter (08/15/18) Physical Therapy Treatment Note PT-OP-A Visit Information Start: 04/24/18 10:51 Freq: Status: Active Protocol: Document 08/15/18 13:39 EA (Rec: 08/15/18 13:47 EA [id number]) Out-Patient Physical Therapy Visit Information Visit Information Visit Type Treatment Note Visit Start Time 13:00 Visit Stop Time 13:48 Total Visit Minutes 48 Visit Number 08/19 PT-OP-B Current Condition Start: 04/24/18 10:51 Freq: Status: Active Protocol: Document 07/18/18 13:13 [facility] (Rec: 07/18/18 13:46 [facility] [id number]) Current Condition History of Current Condition Onset Date 1 1/2 year ago Current Complaints R hip ant pain History of Current Condition Pt is s/p R hip arthroscopic debridement-w/TTWB until 3 weeks post op. She has been compliant with crutches and feels like pain is improved. Per pt, she was told they just shaved down and debrided the tear. PMH:Present condition strated a year and half ago with no history of injury. Previous PT treatment six months ago was due to right low back and SI joint pain was resolved through surgery on October 2017. Medical reports reveals labral tear to right w/ detached labral fragments. Patient reffered to PT for evaluation and treatment. Prior Treatments and Tests August 2017: Formal PT treatment for right low back and SI joint pain Treatment Goals Patient/Caregiver Goals Return to playing with kids, riding bike, running, working out PT-OP-C Subjective Start: 04/24/18 10:51 Freq: Status: Active Protocol: Document 08/15/18 13:39 EA (Rec: 08/15/18 13:47 EA [id number]) OP-PT Subjective Patient Comments Patient Comments Pt reports doing stationary bike at home regularly and reports no increased of hip pain. PT-OP-D Balance Start: 04/24/18 10:51 Freq: Status: Active Protocol: Document 04/24/18 12:38 EA (Rec: 04/24/18 13:10 EA [id number]) Balance Tests Single Limb Standing Single Limb- Right able <10 secs Single Limb- Left able > 10 sec PT-OP-E Functional Tests Start: 04/24/18 10:51 Freq: Status: Active Protocol: Document 04/24/18 12:38 EA (Rec: 04/24/18 13:10 EA [id number]) Functional Tests Other 1 Name of Test Deep/full squat Comment Mild difficulty to right hip PT-OP-F Manual Assessment Start: 04/24/18 10:51 Freq: Status: Active Protocol: Document 04/24/18 12:38 EA (Rec: 04/24/18 13:10 EA [id number]) Manual Assessments Soft Tissue Assessment Soft Tissue Mobility Assessment Tight right hamstring Joint Mobility Assessment Joint Mobility Assessment Hypo mobility to right hip ( Flexion) PT-OP-G Mobility & Gait Start: 04/24/18 10:51 Freq: Status: Active Protocol: Document 07/18/18 13:13 [facility] (Rec: 07/18/18 13:46 [facility] [id number]) OP Gait Assessment Comments Gait Comments Amb w/hop pattern w/crutches PT-OP-J Posture/Palpation/Skin Start: 04/24/18 10:51 Freq: Status: Active Protocol: Document 04/24/18 12:38 EA (Rec: 04/24/18 13:10 EA [id number]) Posture Evaluation Comments Posture Comments Good general body posture with slight increased low back pain PT-OP-K Range of Motion Start: 04/24/18 10:51 Freq: Status: Active Protocol: Document 04/24/18 12:38 EA (Rec: 04/24/18 13:10 EA [id number]) Hip Goniometric Range of Motion Hip Measured in Degrees Right Passive Testing Position Supine Flexion w/Knee Flexed 125 Right Active Testing Position Supine Flexion w/Knee Flexed 110 Left Active Hip ROM WFL Yes Flexion w/Knee Flexed 130 Hip ROM Limitations Hip ROM Limitations Pain PT-OP-L Special Tests Start: 04/24/18 10:51 Freq: Status: Active Protocol: Document 04/24/18 12:38 EA (Rec: 04/24/18 13:10 EA [id number]) Special Tests Hip Special Tests Scour Test Test Results negative ALYCIA Test Results positive Paola's Test Test Results negative Other Special Tests Special Tests Hip Labral tests (F/ADD/IR): Positive PT-OP-M Strength Start: 04/24/18 10:51 Freq: Status: Active Protocol: Document 04/24/18 12:38 EA (Rec: 04/24/18 13:10 EA [id number]) Hip Strength Hip Manual Muscle Testing Right Flexion (L2) 4 Good Extension (S1) 5 Normal Abduction 5 Normal Adduction 4+ Good+ External Rotation 5 Normal Internal Rotation 4 Good Left Flexion (L2) 5 Normal Extension (S1) 5 Normal Abduction 5 Normal Adduction 5 Normal External Rotation 5 Normal Internal Rotation 5 Normal PT-OP-Q Treatments Start: 04/24/18 10:51 Freq: Status: Active Protocol: Document 08/15/18 13:39 EA (Rec: 08/15/18 13:47 EA [id number]) Cardio Equipment Bicycle (Upright) Duration (Minutes) 5 Resistance 4-6 Seat Position 4-2 Gym Equipment Shuttle Recovery Unilateral Squats Details Right Resistance 25-50# Shuttle Recovery Platform Stable Reps/Time 15 reps x 2 Shuttle Balance 1 Details Red Comments Wide CARMEN, Staggered Stance, Lateral Weight Shift Therapeutic Exercises Supine Exercises 3 Supine Exercise Name SLR Side right Reps/Minutes x 12 reps x2 Comments comfort range 1 Supine Exercise Name Bridges with marching Reps/Minutes x 10 reps x 2 Prone Exercises 1 Prone Exercise Name Hip ext Resistance 1# Reps/Minutes x 12 reps x 2 Standing Exercises 5 Standing Exercise Name side step squat Reps/Minutes x 15 steps x 2 Comments 0-60deg hip range 4 Standing Exercise Name 6 step down and up leading left Reps/Minutes x 10 reps x 2 Comments FWD/SDW 3 Standing Exercise Name Step up and down back Reps/Minutes x 10 reps x 2 Comments 6 steps leading left Other Exercises 1 Other Exercise Name Wall T-ball squat Reps/Minutes x 10 rep x 54sec hold at downposition PT-OP-R Modalities Start: 04/24/18 10:51 Freq: Status: Active Protocol: Document 08/15/18 13:39 EA (Rec: 08/15/18 13:47 EA [id number]) Hot Pack/Cold Pack Treatment Cold Pack Location right hip Patient Position Hooklying Treatment Duration (minutes) 10 Patient Tolerance Good PT-OP-T Assessment and Plan Start: 04/24/18 10:51 Freq: Status: Active Protocol: Document 08/15/18 13:39 EA (Rec: 08/15/18 13:47 [facility] [id number]) Physical Therapy Assessment Assessment Summary Assessment Tolerated therex except slight discomfort during SLR. Patient is progressing well. Physical Therapy Plan Next Visit Focus/Plan Next Note Type Treatment Note Next Visit Plan s/l strengthening & progress WB
--- NOTE | 2018-08-24 11:14 | PT.OTN ---
Current Diagnoses Other sprain of right hip, initial encounter (08/24/18) Physical Therapy Treatment Note PT-OP-A Visit Information Start: 04/24/18 10:51 Freq: Status: Active Protocol: Document 08/24/18 10:30 [facility] (Rec: 08/24/18 11:14 [facility] [id number]) Out-Patient Physical Therapy Visit Information Visit Information Visit Type Treatment Note Visit Start Time 10:30 Visit Stop Time 11:10 Total Visit Minutes 40 Visit Number 6/ PT-OP-B Current Condition Start: 04/24/18 10:51 Freq: Status: Active Protocol: Document 07/18/18 13:13 LR (Rec: 07/18/18 13:46 [facility] [id number]) Current Condition History of Current Condition Onset Date 1 1/2 year ago Current Complaints R hip ant pain History of Current Condition Pt is s/p R hip arthroscopic debridement-w/TTWB until 3 weeks post op. She has been compliant with crutches and feels like pain is improved. Per pt, she was told they just shaved down and debrided the tear. PMH:Present condition strated a year and half ago with no history of injury. Previous PT treatment six months ago was due to right low back and SI joint pain was resolved through surgery on October 2017. Medical reports reveals labral tear to right w/ detached labral fragments. Patient reffered to PT for evaluation and treatment. Prior Treatments and Tests August 2017: Formal PT treatment for right low back and SI joint pain Treatment Goals Patient/Caregiver Goals Return to playing with kids, riding bike, running, working out PT-OP-C Subjective Start: 04/24/18 10:51 Freq: Status: Active Protocol: Document 08/24/18 10:30 [facility] (Rec: 08/24/18 11:14 [facility] [id number]) OP-PT Subjective Patient Comments Patient Comments Pt reports she worked yesterday and was sore later in the day but feel okay today . Reports she walked 2 miles with a friend on Monday and was sore in her ant hip until yesteray so she did stretches until then. PT-OP-D Balance Start: 04/24/18 10:51 Freq: Status: Active Protocol: Document 04/24/18 12:38 EA (Rec: 04/24/18 13:10 EA [id number]) Balance Tests Single Limb Standing Single Limb- Right able <10 secs Single Limb- Left able > 10 sec PT-OP-E Functional Tests Start: 04/24/18 10:51 Freq: Status: Active Protocol: Document 04/24/18 12:38 EA (Rec: 04/24/18 13:10 EA [id number]) Functional Tests Other 1 Name of Test Deep/full squat Comment Mild difficulty to right hip PT-OP-F Manual Assessment Start: 04/24/18 10:51 Freq: Status: Active Protocol: Document 04/24/18 12:38 EA (Rec: 04/24/18 13:10 EA [id number]) Manual Assessments Soft Tissue Assessment Soft Tissue Mobility Assessment Tight right hamstring Joint Mobility Assessment Joint Mobility Assessment Hypo mobility to right hip ( Flexion) PT-OP-G Mobility & Gait Start: 04/24/18 10:51 Freq: Status: Active Protocol: Document 07/18/18 13:13 [facility] (Rec: 07/18/18 13:46 [facility] [id number]) OP Gait Assessment Comments Gait Comments Amb w/hop pattern w/crutches PT-OP-J Posture/Palpation/Skin Start: 04/24/18 10:51 Freq: Status: Active Protocol: Document 04/24/18 12:38 EA (Rec: 04/24/18 13:10 EA [id number]) Posture Evaluation Comments Posture Comments Good general body posture with slight increased low back pain PT-OP-K Range of Motion Start: 04/24/18 10:51 Freq: Status: Active Protocol: Document 04/24/18 12:38 EA (Rec: 04/24/18 13:10 EA [id number]) Hip Goniometric Range of Motion Hip Measured in Degrees Right Passive Testing Position Supine Flexion w/Knee Flexed 125 Right Active Testing Position Supine Flexion w/Knee Flexed 110 Left Active Hip ROM WFL Yes Flexion w/Knee Flexed 130 Hip ROM Limitations Hip ROM Limitations Pain PT-OP-L Special Tests Start: 04/24/18 10:51 Freq: Status: Active Protocol: Document 04/24/18 12:38 EA (Rec: 04/24/18 13:10 EA [id number]) Special Tests Hip Special Tests Scour Test Test Results negative ALYCIA Test Results positive Paola's Test Test Results negative Other Special Tests Special Tests Hip Labral tests (F/ADD/IR): Positive PT-OP-M Strength Start: 04/24/18 10:51 Freq: Status: Active Protocol: Document 04/24/18 12:38 EA (Rec: 04/24/18 13:10 EA [id number]) Hip Strength Hip Manual Muscle Testing Right Flexion (L2) 4 Good Extension (S1) 5 Normal Abduction 5 Normal Adduction 4+ Good+ External Rotation 5 Normal Internal Rotation 4 Good Left Flexion (L2) 5 Normal Extension (S1) 5 Normal Abduction 5 Normal Adduction 5 Normal External Rotation 5 Normal Internal Rotation 5 Normal PT-OP-Q Treatments Start: 04/24/18 10:51 Freq: Status: Active Protocol: Document 08/24/18 10:30 [facility] (Rec: 08/24/18 11:14 [facility] [id number]) Cardio Equipment Bicycle (Upright) Duration (Minutes) 5 Resistance 4 Seat Position 3 Gym Equipment Sport Cord step ups Exercise Details fwd, side, back Cord/Resistance red Reps/Duration 10 ea B Therapeutic Exercises Standing Exercises 5 Standing Exercise Name side step squat Equipment Used L1 tband at ankles Reps/Minutes 20ft x 2 Comments 0-70deg hip range Other Exercises 1 Other Exercise Name Wall T-ball squat Reps/Minutes x 15 rep x 5sec hold at downposition Manual Therapy Treatment Soft Tissue Mobilization 2 Body Location ant thigh & hip & scar tissue Mobilization Type Myofascial Release Intensity/Depth Superficial PT-OP-R Modalities Start: 04/24/18 10:51 Freq: Status: Active Protocol: Document 08/24/18 10:30 [facility] (Rec: 08/24/18 11:14 [facility] [id number]) Hot Pack/Cold Pack Treatment Cold Pack Location right hip Patient Position Hooklying Treatment Duration (minutes) 10 Patient Tolerance Good PT-OP-T Assessment and Plan Start: 04/24/18 10:51 Freq: Status: Active Protocol: Document 08/24/18 10:30 [facility] (Rec: 08/24/18 11:14 [facility] [id number]) Physical Therapy Assessment Goals Four Impairment gait Short Term Goal (STG) Pt will amb w/good mechanics w /o AD STG Duration 08/24/18 Three Impairment strength Short Term Goal (STG) Pt will be indep with HEP STG Duration 08/17/18 Manager Sales Support Goal (LTG) 5/5 LE strength to allow pt to return to active lifestyle LTG Duration 09/17/18 Two Impairment activties Short Term Goal (STG) Pt will be able to return to work. STG Duration 08/24/18 Skilled Nursing Goal (LTG) Pt will note being able to resume exercise program of light to moderate intensity. LTG Duration 09/17/18 Assessment Summary Assessment Pt able to do all exercises without c/o pain. Reports c/o weakness w/ some exercises and did require cueing for foot position. Notable tightness in myofascial tissues around scar that improve with STM Physical Therapy Plan Frequency and Duration Frequency of Treatment 2x/Week Duration of Treatment 2 months Plan of Care Start Date 07/18/18 Plan of Care End Date 09/17/18 Next Visit Focus/Plan Next Note Type Treatment Note Next Visit Plan Cont to work on WB strength & work on PNF diagonals for gait
--- NOTE | 2018-08-29 18:11 | PT.OTN ---
Current Diagnoses Other sprain of right hip, initial encounter (08/29/18) Physical Therapy Treatment Note PT-OP-A Visit Information Start: 04/24/18 10:51 Freq: Status: Active Protocol: Document 08/29/18 17:47 [facility] (Rec: 08/29/18 18:11 [facility] [id number]) Out-Patient Physical Therapy Visit Information Visit Information Visit Type Treatment Note Visit Start Time 16:45 Visit Stop Time 17:30 Total Visit Minutes 45 Visit Number 10/19 PT-OP-B Current Condition Start: 04/24/18 10:51 Freq: Status: Active Protocol: Document 07/18/18 13:13 [facility] (Rec: 07/18/18 13:46 [facility] [id number]) Current Condition History of Current Condition Onset Date 1 1/2 year ago Current Complaints R hip ant pain History of Current Condition Pt is s/p R hip arthroscopic debridement-w/TTWB until 3 weeks post op. She has been compliant with crutches and feels like pain is improved. Per pt, she was told they just shaved down and debrided the tear. PMH:Present condition strated a year and half ago with no history of injury. Previous PT treatment six months ago was due to right low back and SI joint pain was resolved through surgery on October 2017. Medical reports reveals labral tear to right w/ detached labral fragments. Patient reffered to PT for evaluation and treatment. Prior Treatments and Tests August 2017: Formal PT treatment for right low back and SI joint pain Treatment Goals Patient/Caregiver Goals Return to playing with kids, riding bike, running, working out PT-OP-C Subjective Start: 04/24/18 10:51 Freq: Status: Active Protocol: Document 08/29/18 17:47 [facility] (Rec: 08/29/18 18:11 [facility] [id number]) OP-PT Subjective Patient Comments Patient Comments Reports she gardened today and worked out and felt good. 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 PT-OP-D Balance Start: 04/24/18 10:51 Freq: Status: Active Protocol: Document 04/24/18 12:38 EA (Rec: 04/24/18 13:10 EA [id number]) Balance Tests Single Limb Standing Single Limb- Right able <10 secs Single Limb- Left able > 10 sec PT-OP-E Functional Tests Start: 04/24/18 10:51 Freq: Status: Active Protocol: Document 04/24/18 12:38 EA (Rec: 04/24/18 13:10 EA [id number]) Functional Tests Other 1 Name of Test Deep/full squat Comment Mild difficulty to right hip PT-OP-F Manual Assessment Start: 04/24/18 10:51 Freq: Status: Active Protocol: Document 04/24/18 12:38 EA (Rec: 04/24/18 13:10 EA [id number]) Manual Assessments Soft Tissue Assessment Soft Tissue Mobility Assessment Tight right hamstring Joint Mobility Assessment Joint Mobility Assessment Hypo mobility to right hip ( Flexion) PT-OP-G Mobility & Gait Start: 04/24/18 10:51 Freq: Status: Active Protocol: Document 07/18/18 13:13 [facility] (Rec: 07/18/18 13:46 [facility] [id number]) OP Gait Assessment Comments Gait Comments Amb w/hop pattern w/crutches PT-OP-J Posture/Palpation/Skin Start: 04/24/18 10:51 Freq: Status: Active Protocol: Document 04/24/18 12:38 EA (Rec: 04/24/18 13:10 EA [id number]) Posture Evaluation Comments Posture Comments Good general body posture with slight increased low back pain PT-OP-K Range of Motion Start: 04/24/18 10:51 Freq: Status: Active Protocol: Document 04/24/18 12:38 EA (Rec: 04/24/18 13:10 EA [id number]) Hip Goniometric Range of Motion Hip Measured in Degrees Right Passive Testing Position Supine Flexion w/Knee Flexed 125 Right Active Testing Position Supine Flexion w/Knee Flexed 110 Left Active Hip ROM WFL Yes Flexion w/Knee Flexed 130 Hip ROM Limitations Hip ROM Limitations Pain PT-OP-L Special Tests Start: 04/24/18 10:51 Freq: Status: Active Protocol: Document 04/24/18 12:38 EA (Rec: 04/24/18 13:10 EA [id number]) Special Tests Hip Special Tests Scour Test Test Results negative ALYCIA Test Results positive Paola's Test Test Results negative Other Special Tests Special Tests Hip Labral tests (F/ADD/IR): Positive PT-OP-M Strength Start: 04/24/18 10:51 Freq: Status: Active Protocol: Document 04/24/18 12:38 EA (Rec: 04/24/18 13:10 EA [id number]) Hip Strength Hip Manual Muscle Testing Right Flexion (L2) 4 Good Extension (S1) 5 Normal Abduction 5 Normal Adduction 4+ Good+ External Rotation 5 Normal Internal Rotation 4 Good Left Flexion (L2) 5 Normal Extension (S1) 5 Normal Abduction 5 Normal Adduction 5 Normal External Rotation 5 Normal Internal Rotation 5 Normal PT-OP-Q Treatments Start: 04/24/18 10:51 Freq: Status: Active Protocol: Document 08/29/18 17:47 [facility] (Rec: 08/29/18 18:11 [facility] [id number]) Cardio Equipment Elliptical Duration (Minutes) 6 Resistance 3 Gym Equipment Shuttle Balance 1 Details Red Comments Wide CARMEN, NBOS,Staggered Stance fwd & side while tossing balloon Sport Cord step ups Exercise Details fwd, side Cord/Resistance red Reps/Duration 10 ea B Comments w/alt march Therapeutic Exercises Standing Exercises 5 Standing Exercise Name side step squat Equipment Used teal band Reps/Minutes 20ft x 2 Comments 0-70deg hip range 1 Standing Exercise Name monster walks & back walks Reps/Minutes 2x20ft B Manual Therapy Treatment Soft Tissue Mobilization 2 Body Location ant thigh & hip & scar tissue Mobilization Type Myofascial Release Intensity/Depth Superficial 1 Body Location HS Mobilization Type Rolling Strumming Intensity/Depth Moderate Body Position Supine Comments lat PT-OP-R Modalities Start: 04/24/18 10:51 Freq: Status: Active Protocol: Document 08/24/18 10:30 [facility] (Rec: 08/24/18 11:14 [facility] [id number]) Hot Pack/Cold Pack Treatment Cold Pack Location right hip Patient Position Hooklying Treatment Duration (minutes) 10 Patient Tolerance Good PT-OP-T Assessment and Plan Start: 04/24/18 10:51 Freq: Status: Active Protocol: Document 08/29/18 17:47 [facility] (Rec: 08/29/18 18:11 [facility] [id number]) Physical Therapy Assessment Goals Four Impairment gait Short Term Goal (STG) Pt will amb w/good mechanics w /o AD STG Duration 08/24/18 Three Impairment strength Short Term Goal (STG) Pt will be indep with HEP STG Duration 08/17/18 Urgent Care Technician Goal (LTG) 5/ LE strength to allow pt to return to active lifestyle LTG Duration 09/17/18 Two Impairment activties Short Term Goal (STG) Pt will be able to return to work. STG Duration 08/24/18 [facility] Goal (LTG) Pt will note being able to resume exercise program of light to moderate intensity. LTG Duration 09/17/18 Assessment Summary Assessment Pt tolerated all exercises without pain. Difficulty with some balance exercises, but pt was able to perform after repetition. Improving tolerance to standing WB exercises & improved facial mobility. Physical Therapy Plan Frequency and Duration Frequency of Treatment 2x/Week Duration of Treatment 2 months Plan of Care Start Date 07/18/18 Plan of Care End Date 09/17/18 Next Visit Focus/Plan Next Note Type Treatment Note Next Visit Plan PNF diagonals for gait
--- NOTE | 2018-09-05 18:58 | PT.OTN ---
Current Diagnoses Other sprain of right hip, initial encounter (09/05/18) Physical Therapy Treatment Note PT-OP-A Visit Information Start: 04/24/18 10:51 Freq: Status: Active Protocol: Document 09/05/18 18:46 [facility] (Rec: 09/05/18 18:57 [facility] [id number]) Out-Patient Physical Therapy Visit Information Visit Information Visit Type Treatment Note Visit Start Time 17:34 Visit Stop Time 18:19 Total Visit Minutes 45 Visit Number 8 PT-OP-B Current Condition Start: 04/24/18 10:51 Freq: Status: Active Protocol: Document 07/18/18 13:13 [facility] (Rec: 07/18/18 13:46 [facility] [id number]) Current Condition History of Current Condition Onset Date 1 1/2 year ago Current Complaints R hip ant pain History of Current Condition Pt is s/p R hip arthroscopic debridement-w/TTWB until 3 weeks post op. She has been compliant with crutches and feels like pain is improved. Per pt, she was told they just shaved down and debrided the tear. PMH:Present condition strated a year and half ago with no history of injury. Previous PT treatment six months ago was due to right low back and SI joint pain was resolved through surgery on October 2017. Medical reports reveals labral tear to right w/ detached labral fragments. Patient reffered to PT for evaluation and treatment. Prior Treatments and Tests August 2017: Formal PT treatment for right low back and SI joint pain Treatment Goals Patient/Caregiver Goals Return to playing with kids, riding bike, running, working out PT-OP-C Subjective Start: 04/24/18 10:51 Freq: Status: Active Protocol: Document 09/05/18 18:46 [facility] (Rec: 09/05/18 18:57 [facility] [id number]) OP-PT Subjective Patient Comments Patient Comments pt reports she rode her bike this weekend and walked a lot and didn't have a lot of hip pain. She worked today and had to work recovery and feels exhausted and had some hip pain but mostly her SI hurts. PT-OP-D Balance Start: 04/24/18 10:51 Freq: Status: Active Protocol: Document 04/24/18 12:38 EA (Rec: 04/24/18 13:10 EA [id number]) Balance Tests Single Limb Standing Single Limb- Right able <10 secs Single Limb- Left able > 10 sec PT-OP-E Functional Tests Start: 04/24/18 10:51 Freq: Status: Active Protocol: Document 04/24/18 12:38 EA (Rec: 04/24/18 13:10 EA [id number]) Functional Tests Other 1 Name of Test Deep/full squat Comment Mild difficulty to right hip PT-OP-F Manual Assessment Start: 04/24/18 10:51 Freq: Status: Active Protocol: Document 04/24/18 12:38 EA (Rec: 04/24/18 13:10 EA [id number]) Manual Assessments Soft Tissue Assessment Soft Tissue Mobility Assessment Tight right hamstring Joint Mobility Assessment Joint Mobility Assessment Hypo mobility to right hip ( Flexion) PT-OP-G Mobility & Gait Start: 04/24/18 10:51 Freq: Status: Active Protocol: Document 07/18/18 13:13 [facility] (Rec: 07/18/18 13:46 [facility] [id number]) OP Gait Assessment Comments Gait Comments Amb w/hop pattern w/crutches PT-OP-J Posture/Palpation/Skin Start: 04/24/18 10:51 Freq: Status: Active Protocol: Document 04/24/18 12:38 EA (Rec: 04/24/18 13:10 EA [id number]) Posture Evaluation Comments Posture Comments Good general body posture with slight increased low back pain PT-OP-K Range of Motion Start: 04/24/18 10:51 Freq: Status: Active Protocol: Document 04/24/18 12:38 EA (Rec: 04/24/18 13:10 EA [id number]) Hip Goniometric Range of Motion Hip Measured in Degrees Right Passive Testing Position Supine Flexion w/Knee Flexed 125 Right Active Testing Position Supine Flexion w/Knee Flexed 110 Left Active Hip ROM WFL Yes Flexion w/Knee Flexed 130 Hip ROM Limitations Hip ROM Limitations Pain PT-OP-L Special Tests Start: 04/24/18 10:51 Freq: Status: Active Protocol: Document 04/24/18 12:38 EA (Rec: 04/24/18 13:10 EA [id number]) Special Tests Hip Special Tests Scour Test Test Results negative ALYCIA Test Results positive Paola's Test Test Results negative Other Special Tests Special Tests Hip Labral tests (F/ADD/IR): Positive PT-OP-M Strength Start: 04/24/18 10:51 Freq: Status: Active Protocol: Document 04/24/18 12:38 EA (Rec: 04/24/18 13:10 EA [id number]) Hip Strength Hip Manual Muscle Testing Right Flexion (L2) 4 Good Extension (S1) 5 Normal Abduction 5 Normal Adduction 4+ Good+ External Rotation 5 Normal Internal Rotation 4 Good Left Flexion (L2) 5 Normal Extension (S1) 5 Normal Abduction 5 Normal Adduction 5 Normal External Rotation 5 Normal Internal Rotation 5 Normal PT-OP-Q Treatments Start: 04/24/18 10:51 Freq: Status: Active Protocol: Document 09/05/18 18:46 [facility] (Rec: 09/05/18 18:57 [facility] [id number]) Cardio Equipment Elliptical Duration (Minutes) 6 Resistance 3 Gym Equipment Sport Cord step ups Exercise Details fwd, side Cord/Resistance red Reps/Duration 10 ea B Comments w/alt march Therapeutic Exercises Prone Exercises 1 Prone Exercise Name ER Side right Reps/Minutes 10 Comments w/focus on ant pressure of femur Standing Exercises 2 Standing Exercise Name squats on bosu Reps/Minutes 20 Manual Therapy Treatment Joint Mobilizations sacrum Joint sacrum Direction UPA R & caudal FM hip Joint hip Direction on axis ER FM 1 Joint innominate Direction caudal R, ER R FM Body Position Prone PT-OP-R Modalities Start: 04/24/18 10:51 Freq: Status: Active Protocol: Document 08/24/18 10:30 [facility] (Rec: 08/24/18 11:14 [facility] [id number]) Hot Pack/Cold Pack Treatment Cold Pack Location right hip Patient Position Hooklying Treatment Duration (minutes) 10 Patient Tolerance Good PT-OP-T Assessment and Plan Start: 04/24/18 10:51 Freq: Status: Active Protocol: Document 09/05/18 18:46 [facility] (Rec: 09/05/18 18:57 [facility] [id number]) Physical Therapy Assessment Goals Four Impairment gait Short Term Goal (STG) Pt will amb w/good mechanics w /o AD STG Duration achieved Three Impairment strength Short Term Goal (STG) Pt will be indep with HEP STG Duration 08/17/18 Fdc Goal (LTG) 5/5 LE strength to allow pt to return to active lifestyle LTG Duration 09/17/18 Two Impairment activties Short Term Goal (STG) Pt will be able to return to work. 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 LTG Duration 09/17/18 Assessment Summary Assessment Pt is progressing with exercises with no c/o pain. She was educated for car positioning d/t some pain noted when traveling. She is improving with functional activity tolerance at this time and had improved hip ER after manual rx. Physical Therapy Plan Frequency and Duration Frequency of Treatment 2x/Week Duration of Treatment 2 months Plan of Care Start Date 07/18/18 Plan of Care End Date 09/17/18 Next Visit Focus/Plan Next Note Type Progress Note Next Visit Plan PNF diagonals for gait
--- NOTE | 2018-09-12 13:54 | PT.OTN ---
Current Diagnoses Other sprain of right hip, initial encounter (09/12/18) Physical Therapy Treatment Note PT-OP-A Visit Information Start: 04/24/18 10:51 Freq: Status: Active Protocol: Document 09/12/18 13:06 [facility] (Rec: 09/12/18 13:18 [facility] [id number]) Out-Patient Physical Therapy Visit Information Visit Information Visit Type Treatment Note Visit Start Time 13:04 Visit Stop Time 13:49 Total Visit Minutes 45 Visit Number 12/20 PT-OP-B Current Condition Start: 04/24/18 10:51 Freq: Status: Active Protocol: Document 07/18/18 13:13 [facility] (Rec: 07/18/18 13:46 [facility] [id number]) Current Condition History of Current Condition Onset Date 1 1/2 year ago Current Complaints R hip ant pain History of Current Condition Pt is s/p R hip arthroscopic debridement-w/TTWB until 3 weeks post op. She has been compliant with crutches and feels like pain is improved. Per pt, she was told they just shaved down and debrided the tear. PMH:Present condition strated a year and half ago with no history of injury. Previous PT treatment six months ago was due to right low back and SI joint pain was resolved through surgery on October 2017. Medical reports reveals labral tear to right w/ detached labral fragments. Patient reffered to PT for evaluation and treatment. Prior Treatments and Tests August 2017: Formal PT treatment for right low back and SI joint pain Treatment Goals Patient/Caregiver Goals Return to playing with kids, riding bike, running, working out PT-OP-C Subjective Start: 04/24/18 10:51 Freq: Status: Active Protocol: Document 09/12/18 13:06 [facility] (Rec: 09/12/18 13:18 [facility] [id number]) OP-PT Subjective Patient Comments Patient Comments Pt reports she worked recovery 6 hours and was sore 2 hours in but was able to sit and was able to recover in that time. PT-OP-D Balance Start: 04/24/18 10:51 Freq: Status: Active Protocol: Document 04/24/18 12:38 EA (Rec: 04/24/18 13:10 EA [id number]) Balance Tests Single Limb Standing Single Limb- Right able <10 secs Single Limb- Left able > 10 sec PT-OP-E Functional Tests Start: 04/24/18 10:51 Freq: Status: Active Protocol: Document 04/24/18 12:38 EA (Rec: 04/24/18 13:10 EA [id number]) Functional Tests Other 1 Name of Test Deep/full squat Comment Mild difficulty to right hip PT-OP-F Manual Assessment Start: 04/24/18 10:51 Freq: Status: Active Protocol: Document 04/24/18 12:38 EA (Rec: 04/24/18 13:10 EA [id number]) Manual Assessments Soft Tissue Assessment Soft Tissue Mobility Assessment Tight right hamstring Joint Mobility Assessment Joint Mobility Assessment Hypo mobility to right hip ( Flexion) PT-OP-G Mobility & Gait Start: 04/24/18 10:51 Freq: Status: Active Protocol: Document 07/18/18 13:13 [facility] (Rec: 07/18/18 13:46 [facility] [id number]) OP Gait Assessment Comments Gait Comments Amb w/hop pattern w/crutches PT-OP-J Posture/Palpation/Skin Start: 04/24/18 10:51 Freq: Status: Active Protocol: Document 04/24/18 12:38 EA (Rec: 04/24/18 13:10 EA [id number]) Posture Evaluation Comments Posture Comments Good general body posture with slight increased low back pain PT-OP-K Range of Motion Start: 04/24/18 10:51 Freq: Status: Active Protocol: Document 04/24/18 12:38 EA (Rec: 04/24/18 13:10 EA [id number]) Hip Goniometric Range of Motion Hip Measured in Degrees Right Passive Testing Position Supine Flexion w/Knee Flexed 125 Right Active Testing Position Supine Flexion w/Knee Flexed 110 Left Active Hip ROM WFL Yes Flexion w/Knee Flexed 130 Hip ROM Limitations Hip ROM Limitations Pain PT-OP-L Special Tests Start: 04/24/18 10:51 Freq: Status: Active Protocol: Document 04/24/18 12:38 EA (Rec: 04/24/18 13:10 EA [id number]) Special Tests Hip Special Tests Scour Test Test Results negative ALYCIA Test Results positive Paola's Test Test Results negative Other Special Tests Special Tests Hip Labral tests (F/ADD/IR): Positive PT-OP-M Strength Start: 04/24/18 10:51 Freq: Status: Active Protocol: Document 09/12/18 13:06 [facility] (Rec: 09/12/18 13:25 [facility] [id number]) Hip Strength Hip Manual Muscle Testing Right Flexion (L2) 4- Good- Extension (S1) 5 Normal Abduction 4+ Good+ Adduction 4+ Good+ External Rotation 4+ Good+ Internal Rotation 4+ Good+ Left Flexion (L2) 5 Normal Extension (S1) 5 Normal Abduction 5 Normal Adduction 5 Normal External Rotation 5 Normal Internal Rotation 5 Normal Knee Strength Knee Manual Muscle Testing Right Flexion (S2) 5 Normal Extension (L3) 5 Normal Left Flexion (S2) 5 Normal Extension (L3) 5 Normal PT-OP-Q Treatments Start: 04/24/18 10:51 Freq: Status: Active Protocol: Document 09/12/18 13:06 [facility] (Rec: 09/12/18 13:18 [facility] [id number]) Cardio Equipment Elliptical Duration (Minutes) 6 Resistance 3 Gym Equipment Sport Cord step ups Exercise Details fwd, side, back Cord/Resistance red Reps/Duration 15 ea B Comments w/alt june; 8 in step Gait Training Gait Activity walking Description focus on push off Manual Therapy Treatment Soft Tissue Mobilization iliacus Body Location iliacus Mobilization Type Sustained Pressure Neuro Re-Education Treatment Other Activities PNF Details ant elevation & post depression Comments rhythmic initiation, sustained holds, COI, use of LE w/ patterns & concentric reversals PT-OP-R Modalities Start: 04/24/18 10:51 Freq: Status: Active Protocol: Document 08/24/18 10:30 [facility] (Rec: 08/24/18 11:14 [facility] [id number]) Hot Pack/Cold Pack Treatment Cold Pack Location right hip Patient Position Hooklying Treatment Duration (minutes) 10 Patient Tolerance Good PT-OP-T Assessment and Plan Start: 04/24/18 10:51 Freq: Status: Active Protocol: Document 09/12/18 13:06 [facility] (Rec: 09/12/18 13:18 [facility] [id number]) Physical Therapy Assessment Goals activity Short Term Goal (STG) Pt will be able to sit on floor w/kids w/o pain STG Duration 10/12/18 Cash Applications Representative Goal (LTG) Pt will be able to mtn bike w/ dgt and be able to kick a ball to play w/ kids LTG Duration 11/12/18 Four Impairment gait Short Term Goal (STG) Pt will amb w/good mechanics w /o AD STG Duration achieved Three Impairment strength Short Term Goal (STG) Pt will be indep with HEP STG Duration achieved-advancing as needed Skilled Nursing Goal (LTG) 08/12 LE strength to allow pt to return to active lifestyle LTG Duration 09/17/18 Two Impairment activties Short Term Goal (STG) Pt will be able to return to work. 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 LTG Duration 11/17/18 Assessment Summary Assessment Pt is advancing well with functional activity tolerance and strength & ROM. Her gait is improved and no longer requiers AD but does still have limiationw ith activity. Physical Therapy Plan Frequency and Duration Frequency of Treatment 1-2x/Week Duration of Treatment 2 months Plan of Care Start Date 09/12/18 Plan of Care End Date 11/12/18 Next Visit Focus/Plan Next Note Type Treatment Note Next Visit Plan PNF diagonals for gait & work on gait pattern
--- NOTE | 2018-09-12 13:54 | PT.OPPOC ---
Current Diagnoses Other sprain of right hip, initial encounter (09/12/18) Provider Visit Care Team Role Provider Type Kathie Richardson DO Attending Provider Physician Primary Care Provider Specialty: Family Practice Address: [address] [place] [address], [id number] Email: [email or web address] Plan Of Care PT-OP-T Assessment and Plan Start: 04/24/18 10:51 Freq: Status: Active Protocol: Document 09/12/18 13:06 [facility] (Rec: 09/12/18 13:18 [facility] [id number]) Physical Therapy Assessment Goals activity Short Term Goal (STG) Pt will be able to sit on floor w/kids w/o pain STG Duration 10/12/18 Fdc Goal (LTG) Pt will be able to mtn bike w/ dgt and be able to kick a ball to play w/ kids LTG Duration 11/12/18 Four Impairment gait Short Term Goal (STG) Pt will amb w/good mechanics w /o AD STG Duration achieved Three Impairment strength Short Term Goal (STG) Pt will be indep with HEP STG Duration achieved-advancing as needed Fdc Goal (LTG) 08/12 LE strength to allow pt to return to active lifestyle LTG Duration 09/17/18 Two Impairment activties Short Term Goal (STG) Pt will be able to return to work. 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 LTG Duration 11/17/18 Assessment Summary Assessment Pt is advancing well with functional activity tolerance and strength & ROM. Her gait is improved and no longer requiers AD but does still have limiationw ith activity. Physical Therapy Plan Frequency and Duration Frequency of Treatment 1-2x/Week Duration of Treatment 2 months Plan of Care Start Date 09/12/18 Plan of Care End Date 11/12/18 Next Visit Focus/Plan Next Note Type Treatment Note Next Visit Plan PNF diagonals for gait & work on gait pattern Plan of Care Dates Plan of Care Start Date 09/12/18 Plan of Care End Date 11/12/18 Please Sign and Return: I have reviewed this Plan of Care and certify that the skilled therapy services above are required to meet the patient?s needs. Physician Signature Date Printed Name and Credentials Clinical Instructor Signature Printed Name and Credentials
--- NOTE | 2018-09-19 13:45 | PT.OTN ---
Current Diagnoses Other sprain of right hip, initial encounter (09/19/18) Physical Therapy Treatment Note PT-OP-A Visit Information Start: 04/24/18 10:51 Freq: Status: Active Protocol: Document 09/19/18 13:03 [facility] (Rec: 09/19/18 13:45 [facility] [id number]) Out-Patient Physical Therapy Visit Information Visit Information Visit Type Treatment Note Visit Start Time 13:00 Visit Stop Time 13:40 Total Visit Minutes 40 Visit Number 01/19 PT-OP-B Current Condition Start: 04/24/18 10:51 Freq: Status: Active Protocol: Document 07/18/18 13:13 [facility] (Rec: 07/18/18 13:46 [facility] [id number]) Current Condition History of Current Condition Onset Date 1 1/2 year ago Current Complaints R hip ant pain History of Current Condition Pt is s/p R hip arthroscopic debridement-w/TTWB until 3 weeks post op. She has been compliant with crutches and feels like pain is improved. Per pt, she was told they just shaved down and debrided the tear. PMH:Present condition strated a year and half ago with no history of injury. Previous PT treatment six months ago was due to right low back and SI joint pain was resolved through surgery on October 2017. Medical reports reveals labral tear to right w/ detached labral fragments. Patient reffered to PT for evaluation and treatment. Prior Treatments and Tests August 2017: Formal PT treatment for right low back and SI joint pain Treatment Goals Patient/Caregiver Goals Return to playing with kids, riding bike, running, working out PT-OP-C Subjective Start: 04/24/18 10:51 Freq: Status: Active Protocol: Document 09/19/18 13:03 [facility] (Rec: 09/19/18 13:45 [facility] [id number]) OP-PT Subjective Patient Comments Patient Comments Pt reports she still feels fatigued so has contacted . Reports hip is feeling good. PT-OP-D Balance Start: 04/24/18 10:51 Freq: Status: Active Protocol: Document 04/24/18 12:38 [facility] (Rec: 04/24/18 13:10 EA [id number]) Balance Tests Single Limb Standing Single Limb- Right able <10 secs Single Limb- Left able > 10 sec PT-OP-E Functional Tests Start: 04/24/18 10:51 Freq: Status: Active Protocol: Document 04/24/18 12:38 [facility] (Rec: 04/24/18 13:10 EA [id number]) Functional Tests Other 1 Name of Test Deep/full squat Comment Mild difficulty to right hip PT-OP-F Manual Assessment Start: 04/24/18 10:51 Freq: Status: Active Protocol: Document 04/24/18 12:38 [facility] (Rec: 04/24/18 13:10 EA [id number]) Manual Assessments Soft Tissue Assessment Soft Tissue Mobility Assessment Tight right hamstring Joint Mobility Assessment Joint Mobility Assessment Hypo mobility to right hip ( Flexion) PT-OP-G Mobility & Gait Start: 04/24/18 10:51 Freq: Status: Active Protocol: Document 07/18/18 13:13 [facility] (Rec: 07/18/18 13:46 [facility] [id number]) OP Gait Assessment Comments Gait Comments Amb w/hop pattern w/crutches PT-OP-J Posture/Palpation/Skin Start: 04/24/18 10:51 Freq: Status: Active Protocol: Document 04/24/18 12:38 [facility] (Rec: 04/24/18 13:10 EA [id number]) Posture Evaluation Comments Posture Comments Good general body posture with slight increased low back pain PT-OP-K Range of Motion Start: 04/24/18 10:51 Freq: Status: Active Protocol: Document 04/24/18 12:38 EA (Rec: 04/24/18 13:10 EA [id number]) Hip Goniometric Range of Motion Hip Measured in Degrees Right Passive Testing Position Supine Flexion w/Knee Flexed 125 Right Active Testing Position Supine Flexion w/Knee Flexed 110 Left Active Hip ROM WFL Yes Flexion w/Knee Flexed 130 Hip ROM Limitations Hip ROM Limitations Pain PT-OP-L Special Tests Start: 04/24/18 10:51 Freq: Status: Active Protocol: Document 04/24/18 12:38 EA (Rec: 04/24/18 13:10 EA [id number]) Special Tests Hip Special Tests Scour Test Test Results negative ALYCIA Test Results positive Paola's Test Test Results negative Other Special Tests Special Tests Hip Labral tests (F/ADD/IR): Positive PT-OP-M Strength Start: 04/24/18 10:51 Freq: Status: Active Protocol: Document 09/12/18 13:06 [facility] (Rec: 09/12/18 13:25 [facility] [id number]) Hip Strength Hip Manual Muscle Testing Right Flexion (L2) 4- Good- Extension (S1) 5 Normal Abduction 4+ Good+ Adduction 4+ Good+ External Rotation 4+ Good+ Internal Rotation 4+ Good+ Left Flexion (L2) 5 Normal Extension (S1) 5 Normal Abduction 5 Normal Adduction 5 Normal External Rotation 5 Normal Internal Rotation 5 Normal Knee Strength Knee Manual Muscle Testing Right Flexion (S2) 5 Normal Extension (L3) 5 Normal Left Flexion (S2) 5 Normal Extension (L3) 5 Normal PT-OP-Q Treatments Start: 04/24/18 10:51 Freq: Status: Active Protocol: Document 09/19/18 13:03 [facility] (Rec: 09/19/18 13:45 [facility] [id number]) Cardio Equipment Elliptical Duration (Minutes) 6 Resistance 6 Therapeutic Exercises Supine Exercises isometric Supine Exercise Name hip flex & diagonal Side bilateral Reps/Minutes 30 sec Prone Exercises 1 Prone Exercise Name ER Side right Reps/Minutes 10 Comments w/focus on ant pressure of femur Manual Therapy Treatment Soft Tissue Mobilization iliacus Body Location iliacus & inguinal ligament Mobilization Type Sustained Pressure Joint Mobilizations sacrum Joint sacrum Direction UPA R FM hip Joint hip Direction on axis & inf glide ER FM 1 Joint innominate Direction R ER & flex FM PT-OP-R Modalities Start: 04/24/18 10:51 Freq: Status: Active Protocol: Document 08/24/18 10:30 [facility] (Rec: 08/24/18 11:14 [facility] [id number]) Hot Pack/Cold Pack Treatment Cold Pack Location right hip Patient Position Hooklying Treatment Duration (minutes) 10 Patient Tolerance Good PT-OP-T Assessment and Plan Start: 04/24/18 10:51 Freq: Status: Active Protocol: Document 09/19/18 13:03 [facility] (Rec: 09/19/18 13:45 [facility] [id number]) Physical Therapy Assessment Goals activity Short Term Goal (STG) Pt will be able to sit on floor w/kids w/o pain STG Duration 10/12/18 Farm Reporter Goal (LTG) Pt will be able to mtn bike w/ dgt and be able to kick a ball to play w/ kids LTG Duration 11/12/18 Four Impairment gait Short Term Goal (STG) Pt will amb w/good mechanics w /o AD STG Duration achieved Three Impairment strength Short Term Goal (STG) Pt will be indep with HEP STG Duration achieved-advancing as needed Retirement Goal (LTG) 08/12 LE strength to allow pt to return to active lifestyle LTG Duration 09/17/18 Two Impairment activties Short Term Goal (STG) Pt will be able to return to work. 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 LTG Duration 11/17/18 Assessment Summary Assessment At start of session, it was painful for pt to get to radha cross seated position and after manual treatment, she was able to sit in radha cross position and lean forward without pain. Pt given exercises to maintain this motion. Physical Therapy Plan Frequency and Duration Frequency of Treatment 1-2x/Week Duration of Treatment 2 months Plan of Care Start Date 09/12/18 Plan of Care End Date 11/12/18 Next Visit Focus/Plan Next Note Type Treatment Note Next Visit Plan PNF diagonals for gait & work on gait pattern; psoas STM
--- NOTE | 2018-09-26 14:03 | PT.OTN ---
Current Diagnoses Other sprain of right hip, initial encounter (09/26/18) Physical Therapy Treatment Note PT-OP-A Visit Information Start: 04/24/18 10:51 Freq: Status: Active Protocol: Document 09/26/18 13:09 [facility] (Rec: 09/26/18 14:03 [facility] [id number]) Out-Patient Physical Therapy Visit Information Visit Information Visit Type Treatment Note Visit Start Time 13:05 Visit Stop Time 13:55 Total Visit Minutes 50 Visit Number 11 PT-OP-B Current Condition Start: 04/24/18 10:51 Freq: Status: Active Protocol: Document 07/18/18 13:13 [facility] (Rec: 07/18/18 13:46 [facility] [id number]) Current Condition History of Current Condition Onset Date 1 1/2 year ago Current Complaints R hip ant pain History of Current Condition Pt is s/p R hip arthroscopic debridement-w/TTWB until 3 weeks post op. She has been compliant with crutches and feels like pain is improved. Per pt, she was told they just shaved down and debrided the tear. PMH:Present condition strated a year and half ago with no history of injury. Previous PT treatment six months ago was due to right low back and SI joint pain was resolved through surgery on October 2017. Medical reports reveals labral tear to right w/ detached labral fragments. Patient reffered to PT for evaluation and treatment. Prior Treatments and Tests August 2017: Formal PT treatment for right low back and SI joint pain Treatment Goals Patient/Caregiver Goals Return to playing with kids, riding bike, running, working out PT-OP-C Subjective Start: 04/24/18 10:51 Freq: Status: Active Protocol: Document 09/26/18 13:09 [facility] (Rec: 09/26/18 14:03 [facility] [id number]) OP-PT Subjective Patient Comments Patient Comments Pt was able to driving doen & back to [place] and walked the zoo for 3 hours and did ok. Reports sometimes it feels stuck after sitting a while. Patient Reported Progress Improving PT-OP-D Balance Start: 04/24/18 10:51 Freq: Status: Active Protocol: Document 04/24/18 12:38 EA (Rec: 04/24/18 13:10 EA [id number]) Balance Tests Single Limb Standing Single Limb- Right able <10 secs Single Limb- Left able > 10 sec PT-OP-E Functional Tests Start: 04/24/18 10:51 Freq: Status: Active Protocol: Document 04/24/18 12:38 EA (Rec: 04/24/18 13:10 EA [id number]) Functional Tests Other 1 Name of Test Deep/full squat Comment Mild difficulty to right hip PT-OP-F Manual Assessment Start: 04/24/18 10:51 Freq: Status: Active Protocol: Document 04/24/18 12:38 EA (Rec: 04/24/18 13:10 EA [id number]) Manual Assessments Soft Tissue Assessment Soft Tissue Mobility Assessment Tight right hamstring Joint Mobility Assessment Joint Mobility Assessment Hypo mobility to right hip ( Flexion) PT-OP-G Mobility & Gait Start: 04/24/18 10:51 Freq: Status: Active Protocol: Document 07/18/18 13:13 [facility] (Rec: 07/18/18 13:46 [facility] [id number]) OP Gait Assessment Comments Gait Comments Amb w/hop pattern w/crutches PT-OP-J Posture/Palpation/Skin Start: 04/24/18 10:51 Freq: Status: Active Protocol: Document 04/24/18 12:38 EA (Rec: 04/24/18 13:10 EA [id number]) Posture Evaluation Comments Posture Comments Good general body posture with slight increased low back pain PT-OP-K Range of Motion Start: 04/24/18 10:51 Freq: Status: Active Protocol: Document 04/24/18 12:38 EA (Rec: 04/24/18 13:10 EA [id number]) Hip Goniometric Range of Motion Hip Right Passive Testing Position Supine Flexion w/Knee Flexed 125 Right Active Testing Position Supine Flexion w/Knee Flexed 110 Left Active Hip ROM WFL Yes Flexion w/Knee Flexed 130 Hip ROM Limitations Hip ROM Limitations Pain PT-OP-L Special Tests Start: 04/24/18 10:51 Freq: Status: Active Protocol: Document 04/24/18 12:38 EA (Rec: 04/24/18 13:10 EA [id number]) Special Tests Hip Special Tests Scour Test Test Results negative ALYCIA Test Results positive Paola's Test Test Results negative Other Special Tests Special Tests Hip Labral tests (F/ADD/IR): Positive PT-OP-M Strength Start: 04/24/18 10:51 Freq: Status: Active Protocol: Document 09/12/18 13:06 [facility] (Rec: 09/12/18 13:25 [facility] [id number]) Hip Strength Hip Manual Muscle Testing Right Flexion (L2) 4- Good- Extension (S1) 5 Normal Abduction 4+ Good+ Adduction 4+ Good+ External Rotation 4+ Good+ Internal Rotation 4+ Good+ Left Flexion (L2) 5 Normal Extension (S1) 5 Normal Abduction 5 Normal Adduction 5 Normal External Rotation 5 Normal Internal Rotation 5 Normal Knee Strength Knee Manual Muscle Testing Right Flexion (S2) 5 Normal Extension (L3) 5 Normal Left Flexion (S2) 5 Normal Extension (L3) 5 Normal PT-OP-Q Treatments Start: 04/24/18 10:51 Freq: Status: Active Protocol: Document 09/26/18 13:09 [facility] (Rec: 09/26/18 14:03 [facility] [id number]) Cardio Equipment Elliptical Duration (Minutes) 6 Resistance 6 Therapeutic Exercises Standing Exercises 1 Standing Exercise Name step up w/SLS Side bilateral Equipment Used bosu Reps/Minutes 15 Manual Therapy Treatment Soft Tissue Mobilization iliacus Body Location iliacus & inguinal ligament & psoas Mobilization Type Sustained Pressure Joint Mobilizations lumbar Joint L4-5 Direction AP FM hip Joint hip Direction inf glide FM 1 Joint innominate Direction R Flex FM PT-OP-R Modalities Start: 04/24/18 10:51 Freq: Status: Active Protocol: Document 09/26/18 13:09 [facility] (Rec: 09/26/18 14:03 [facility] [id number]) Hot Pack/Cold Pack Treatment Cold Pack Location ant hip Treatment Duration (minutes) 10 PT-OP-T Assessment and Plan Start: 04/24/18 10:51 Freq: Status: Active Protocol: Document 09/26/18 13:09 [facility] (Rec: 09/26/18 14:03 [facility] [id number]) Physical Therapy Assessment Goals activity Short Term Goal (STG) Pt will be able to sit on floor w/kids w/o pain STG Duration 10/12/18 Retirement Goal (LTG) Pt will be able to mtn bike w/ dgt and be able to kick a ball to play w/ kids LTG Duration 11/12/18 Three Impairment strength Short Term Goal (STG) Pt will be indep with HEP STG Duration achieved-advancing as needed Retirement Goal (LTG) 08/12 LE strength to allow pt to return to active lifestyle LTG Duration 09/17/18 Two Impairment activties Short Term Goal (STG) Pt will be able to return to work. 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 LTG Duration 11/17/18 Assessment Summary Assessment Improved start position for radha cross seated position. Improved with further treatment and improved hip flex mobility. Physical Therapy Plan Frequency and Duration Frequency of Treatment 1-2x/Week Duration of Treatment 2 months Plan of Care Start Date 09/12/18 Plan of Care End Date 11/12/18 Next Visit Focus/Plan Next Note Type Treatment Note Next Visit Plan PNF diagonals for gait & work on gait pattern
--- NOTE | 2018-10-03 13:49 | PT.OTN ---
Current Diagnoses Other sprain of right hip, initial encounter (10/03/18) Physical Therapy Treatment Note PT-OP-A Visit Information Start: 04/24/18 10:51 Freq: Status: Active Protocol: Document 10/03/18 12:56 [facility] (Rec: 10/03/18 13:48 [facility] [id number]) Out-Patient Physical Therapy Visit Information Visit Information Visit Type Treatment Note Visit Start Time 13:00 Visit Stop Time 13:50 Total Visit Minutes 50 Visit Number 04/02 PT-OP-B Current Condition Start: 04/24/18 10:51 Freq: Status: Active Protocol: Document 07/18/18 13:13 [facility] (Rec: 07/18/18 13:46 [facility] [id number]) Current Condition History of Current Condition Onset Date 1 1/2 year ago Current Complaints R hip ant pain History of Current Condition Pt is s/p R hip arthroscopic debridement-w/TTWB until 3 weeks post op. She has been compliant with crutches and feels like pain is improved. Per pt, she was told they just shaved down and debrided the tear. PMH:Present condition strated a year and half ago with no history of injury. Previous PT treatment six months ago was due to right low back and SI joint pain was resolved through surgery on October 2017. Medical reports reveals labral tear to right w/ detached labral fragments. Patient reffered to PT for evaluation and treatment. Prior Treatments and Tests August 2017: Formal PT treatment for right low back and SI joint pain Treatment Goals Patient/Caregiver Goals Return to playing with kids, riding bike, running, working out PT-OP-C Subjective Start: 04/24/18 10:51 Freq: Status: Active Protocol: Document 10/03/18 12:56 [facility] (Rec: 10/03/18 13:48 [facility] [id number]) OP-PT Subjective Patient Comments Patient Comments Pt reports she hiked [place] this weekend and is sore deep in her hip from it 2 days later still. Still less pain then before. PT-OP-D Balance Start: 04/24/18 10:51 Freq: Status: Active Protocol: Document 04/24/18 12:38 EA (Rec: 04/24/18 13:10 EA [id number]) Balance Tests Single Limb Standing Single Limb- Right able <10 secs Single Limb- Left able > 10 sec PT-OP-E Functional Tests Start: 04/24/18 10:51 Freq: Status: Active Protocol: Document 04/24/18 12:38 EA (Rec: 04/24/18 13:10 EA [id number]) Functional Tests Other 1 Name of Test Deep/full squat Comment Mild difficulty to right hip PT-OP-F Manual Assessment Start: 04/24/18 10:51 Freq: Status: Active Protocol: Document 04/24/18 12:38 [facility] (Rec: 04/24/18 13:10 EA [id number]) Manual Assessments Soft Tissue Assessment Soft Tissue Mobility Assessment Tight right hamstring Joint Mobility Assessment Joint Mobility Assessment Hypo mobility to right hip ( Flexion) PT-OP-G Mobility & Gait Start: 04/24/18 10:51 Freq: Status: Active Protocol: Document 07/18/18 13:13 [facility] (Rec: 07/18/18 13:46 [facility] [id number]) OP Gait Assessment Comments Gait Comments Amb w/hop pattern w/crutches PT-OP-J Posture/Palpation/Skin Start: 04/24/18 10:51 Freq: Status: Active Protocol: Document 04/24/18 12:38 EA (Rec: 04/24/18 13:10 EA [id number]) Posture Evaluation Comments Posture Comments Good general body posture with slight increased low back pain PT-OP-K Range of Motion Start: 04/24/18 10:51 Freq: Status: Active Protocol: Document 04/24/18 12:38 EA (Rec: 04/24/18 13:10 EA [id number]) Hip Goniometric Range of Motion Hip Right Passive Testing Position Supine Flexion w/Knee Flexed 125 Right Active Testing Position Supine Flexion w/Knee Flexed 110 Left Active Hip ROM WFL Yes Flexion w/Knee Flexed 130 Hip ROM Limitations Hip ROM Limitations Pain PT-OP-L Special Tests Start: 04/24/18 10:51 Freq: Status: Active Protocol: Document 04/24/18 12:38 EA (Rec: 04/24/18 13:10 EA [id number]) Special Tests Hip Special Tests Scour Test Test Results negative ALYCIA Test Results positive Paola's Test Test Results negative Other Special Tests Special Tests Hip Labral tests (F/ADD/IR): Positive PT-OP-M Strength Start: 04/24/18 10:51 Freq: Status: Active Protocol: Document 09/12/18 13:06 [facility] (Rec: 09/12/18 13:25 [facility] [id number]) Hip Strength Hip Manual Muscle Testing Right Flexion (L2) 4- Good- Extension (S1) 5 Normal Abduction 4+ Good+ Adduction 4+ Good+ External Rotation 4+ Good+ Internal Rotation 4+ Good+ Left Flexion (L2) 5 Normal Extension (S1) 5 Normal Abduction 5 Normal Adduction 5 Normal External Rotation 5 Normal Internal Rotation 5 Normal Knee Strength Knee Manual Muscle Testing Right Flexion (S2) 5 Normal Extension (L3) 5 Normal Left Flexion (S2) 5 Normal Extension (L3) 5 Normal PT-OP-Q Treatments Start: 04/24/18 10:51 Freq: Status: Active Protocol: Document 10/03/18 12:56 [facility] (Rec: 10/03/18 13:48 [facility] [id number]) Cardio Equipment Elliptical Duration (Minutes) 6 Resistance 6 Therapeutic Exercises Standing Exercises 5 Standing Exercise Name hip flexor w/ir stretch & quad stretch Reps/Minutes 45 sec ea 4 Standing Exercise Name kicking ball Reps/Minutes 20 Manual Therapy Treatment Soft Tissue Mobilization iliacus Body Location iliacus & inguinal ligament & psoas Mobilization Type Sustained Pressure 2 Body Location adductor Mobilization Type Rolling Strumming Sustained Pressure Intensity/Depth Moderate Joint Mobilizations hip Joint hip Direction abd FM Manual Techniques [address]ac[address] &RF stretch c/r PT-OP-R Modalities Start: 04/24/18 10:51 Freq: Status: Active Protocol: Document 10/03/18 12:56 [facility] (Rec: 10/03/18 13:48 [facility] [id number]) Hot Pack/Cold Pack Treatment Cold Pack Location ant hip Treatment Duration (minutes) 10 PT-OP-T Assessment and Plan Start: 04/24/18 10:51 Freq: Status: Active Protocol: Document 10/03/18 12:56 [facility] (Rec: 10/03/18 13:48 [facility] [id number]) Physical Therapy Assessment Goals activity Short Term Goal (STG) Pt will be able to sit on floor w/kids w/o pain STG Duration 10/12/18 Granite Polisher Goal (LTG) Pt will be able to mtn bike w/ dgt and be able to kick a ball to play w/ kids LTG Duration 11/12/18 Three Impairment strength Short Term Goal (STG) Pt will be indep with HEP STG Duration achieved-advancing as needed Granite Polisher Goal (LTG) 08/12 LE strength to allow pt to return to active lifestyle LTG Duration 09/17/18 Two Impairment activties Short Term Goal (STG) Pt will be able to return to work. 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 LTG Duration 11/17/18 Assessment Summary Assessment Pt had improved radha cross seated position with stretching herself & manually. Pt had improved abd w/hip mob & add STM. Physical Therapy Plan Frequency and Duration Frequency of Treatment 1-2x/Week Duration of Treatment 2 months Plan of Care Start Date 09/12/18 Plan of Care End Date 11/12/18 Next Visit Focus/Plan Next Note Type Treatment Note Next Visit Plan PNF diagonals for gait & work on gait pattern
--- NOTE | 2018-10-17 10:03 | PT.OTN ---
Current Diagnoses Other sprain of right hip, initial encounter (10/17/18) Physical Therapy Treatment Note PT-OP-A Visit Information Start: 04/24/18 10:51 Freq: Status: Active Protocol: Document 10/17/18 09:04 [facility] (Rec: 10/17/18 10:03 [facility] [id number]) Out-Patient Physical Therapy Visit Information Visit Information Visit Type Treatment Note Visit Start Time 09:00 Visit Stop Time 09:42 Total Visit Minutes 42 Visit Number PT-OP-B Current Condition Start: 04/24/18 10:51 Freq: Status: Active Protocol: Document 07/18/18 13:13 [facility] (Rec: 07/18/18 13:46 [facility] [id number]) Current Condition History of Current Condition Onset Date 1 1/2 year ago Current Complaints R hip ant pain History of Current Condition Pt is s/p R hip arthroscopic debridement-w/TTWB until 3 weeks post op. She has been compliant with crutches and feels like pain is improved. Per pt, she was told they just shaved down and debrided the tear. PMH:Present condition strated a year and half ago with no history of injury. Previous PT treatment six months ago was due to right low back and SI joint pain was resolved through surgery on October 2017. Medical reports reveals labral tear to right w/ detached labral fragments. Patient reffered to PT for evaluation and treatment. Prior Treatments and Tests August 2017: Formal PT treatment for right low back and SI joint pain Treatment Goals Patient/Caregiver Goals Return to playing with kids, riding bike, running, working out PT-OP-C Subjective Start: 04/24/18 10:51 Freq: Status: Active Protocol: Document 10/17/18 09:04 [facility] (Rec: 10/17/18 10:03 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 Is feeling okay now . PT-OP-D Balance Start: 04/24/18 10:51 Freq: Status: Active Protocol: Document 04/24/18 12:38 EA (Rec: 04/24/18 13:10 EA [id number]) Balance Tests Single Limb Standing Single Limb- Right able <10 secs Single Limb- Left able > 10 sec PT-OP-E Functional Tests Start: 04/24/18 10:51 Freq: Status: Active Protocol: Document 04/24/18 12:38 EA (Rec: 04/24/18 13:10 EA [id number]) Functional Tests Other 1 Name of Test Deep/full squat Comment Mild difficulty to right hip PT-OP-F Manual Assessment Start: 04/24/18 10:51 Freq: Status: Active Protocol: Document 04/24/18 12:38 EA (Rec: 04/24/18 13:10 EA [id number]) Manual Assessments Soft Tissue Assessment Soft Tissue Mobility Assessment Tight right hamstring Joint Mobility Assessment Joint Mobility Assessment Hypo mobility to right hip ( Flexion) PT-OP-G Mobility & Gait Start: 04/24/18 10:51 Freq: Status: Active Protocol: Document 07/18/18 13:13 [facility] (Rec: 07/18/18 13:46 [facility] [id number]) OP Gait Assessment Comments Gait Comments Amb w/hop pattern w/crutches PT-OP-J Posture/Palpation/Skin Start: 04/24/18 10:51 Freq: Status: Active Protocol: Document 04/24/18 12:38 [facility] (Rec: 04/24/18 13:10 EA [id number]) Posture Evaluation Comments Posture Comments Good general body posture with slight increased low back pain PT-OP-K Range of Motion Start: 04/24/18 10:51 Freq: Status: Active Protocol: Document 04/24/18 12:38 EA (Rec: 04/24/18 13:10 EA [id number]) Hip Goniometric Range of Motion Hip Right Passive Testing Position Supine Flexion w/Knee Flexed 125 Right Active Testing Position Supine Flexion w/Knee Flexed 110 Left Active Hip ROM WFL Yes Flexion w/Knee Flexed 130 Hip ROM Limitations Hip ROM Limitations Pain PT-OP-L Special Tests Start: 04/24/18 10:51 Freq: Status: Active Protocol: Document 04/24/18 12:38 EA (Rec: 04/24/18 13:10 EA [id number]) Special Tests Hip Special Tests Scour Test Test Results negative ALYCIA Test Results positive Paola's Test Test Results negative Other Special Tests Special Tests Hip Labral tests (F/ADD/IR): Positive PT-OP-M Strength Start: 04/24/18 10:51 Freq: Status: Active Protocol: Document 09/12/18 13:06 [facility] (Rec: 09/12/18 13:25 [facility] [id number]) Hip Strength Hip Manual Muscle Testing Right Flexion (L2) 4- Good- Extension (S1) 5 Normal Abduction 4+ Good+ Adduction 4+ Good+ External Rotation 4+ Good+ Internal Rotation 4+ Good+ Left Flexion (L2) 5 Normal Extension (S1) 5 Normal Abduction 5 Normal Adduction 5 Normal External Rotation 5 Normal Internal Rotation 5 Normal Knee Strength Knee Manual Muscle Testing Right Flexion (S2) 5 Normal Extension (L3) 5 Normal Left Flexion (S2) 5 Normal Extension (L3) 5 Normal PT-OP-Q Treatments Start: 04/24/18 10:51 Freq: Status: Active Protocol: Document 10/17/18 09:04 [facility] (Rec: 10/17/18 10:03 [facility] [id number]) Cardio Equipment Elliptical Duration (Minutes) 6 Resistance 6 Therapeutic Exercises Prone Exercises 1 Prone Exercise Name plank hands and knees progressed to feet Reps/Minutes [id number] Standing Exercises 2 Standing Exercise Name gait at wall Side bilateral Reps/Minutes 15 sec holds Gait Training Gait Activity walking Description focus on push off Comments avoiding rotation of pelvis; faciliated walking also. Neuro Re-Education Treatment Other Activities PNF Details ant elevation & post depression Comments rhythmic initiation, sustained holds, COI, use of LE w/ patterns & concentric reversals PT-OP-R Modalities Start: 04/24/18 10:51 Freq: Status: Active Protocol: Document 10/03/18 12:56 [facility] (Rec: 10/03/18 13:48 [facility] [id number]) Hot Pack/Cold Pack Treatment Cold Pack Location ant hip Treatment Duration (minutes) 10 PT-OP-T Assessment and Plan Start: 04/24/18 10:51 Freq: Status: Active Protocol: Document 10/17/18 09:04 [facility] (Rec: 10/17/18 10:03 [facility] [id number]) Physical Therapy Assessment Goals activity Short Term Goal (STG) Pt will be able to sit on floor w/kids w/o pain STG Duration 7/5/19 Prison Goal (LTG) Pt will be able to mtn bike w/ dgt and be able to kick a ball to play w/ kids LTG Duration 11/12/18 Three Impairment strength Short Term Goal (STG) Pt will be indep with HEP STG Duration achieved-advancing as needed Prison Goal (LTG) 08/12 LE strength to allow pt to return to active lifestyle LTG Duration 09/17/18 Two Impairment activties Short Term Goal (STG) Pt will be able to return to work. 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 LTG Duration 11/17/18 Assessment Summary Assessment Pt improved with gait pattern with cueing but has difficultly fully correcting for improved post depression. She was challenged by gait at wall and plank exercise. Physical Therapy Plan Frequency and Duration Frequency of Treatment 1-2x/Week Duration of Treatment 2 months Plan of Care Start Date 09/12/18 Plan of Care End Date 11/12/18 Next Visit Focus/Plan Next Note Type Treatment Note Next Visit Plan cont to work on gait mechanics & hip mobility & core exercise
--- NOTE | 2018-10-22 11:30 | PT.OTN ---
Current Diagnoses Other sprain of right hip, initial encounter (10/22/18) Physical Therapy Treatment Note PT-OP-A Visit Information Start: 04/24/18 10:51 Freq: Status: Active Protocol: Document 10/22/18 11:30 [facility]AK (Rec: 10/24/18 14:09 SAK [id number]) Out-Patient Physical Therapy Visit Information Visit Information Visit Type Aquatic Treatment Note Visit Start Time 11:30 Visit Stop Time 09:42 Total Visit Minutes 45 Visit Number PT-OP-B Current Condition Start: 04/24/18 10:51 Freq: Status: Active Protocol: Document 07/18/18 13:13 [facility] (Rec: 07/18/18 13:46 LR [id number]) Current Condition History of Current Condition Onset Date 1 1/2 year ago Current Complaints R hip ant pain History of Current Condition Pt is s/p R hip arthroscopic debridement-w/TTWB until 3 weeks post op. She has been compliant with crutches and feels like pain is improved. Per pt, she was told they just shaved down and debrided the tear. PMH:Present condition strated a year and half ago with no history of injury. Previous PT treatment six months ago was due to right low back and SI joint pain was resolved through surgery on October 2017. Medical reports reveals labral tear to right w/ detached labral fragments. Patient reffered to PT for evaluation and treatment. Prior Treatments and Tests August 2017: Formal PT treatment for right low back and SI joint pain Treatment Goals Patient/Caregiver Goals Return to playing with kids, riding bike, running, working out PT-OP-C Subjective Start: 04/24/18 10:51 Freq: Status: Active Protocol: Document 10/22/18 11:30 SAK (Rec: 10/24/18 14:09 SAK [id number]) OP-PT Subjective Patient Comments Patient Comments No new c/o, excited to try aquatic therapy. PT-OP-D Balance Start: 04/24/18 10:51 Freq: Status: Active Protocol: Document 04/24/18 12:38 EA (Rec: 04/24/18 13:10 EA [id number]) Balance Tests Single Limb Standing Single Limb- Right able <10 secs Single Limb- Left able > 10 sec PT-OP-E Functional Tests Start: 04/24/18 10:51 Freq: Status: Active Protocol: Document 04/24/18 12:38 EA (Rec: 04/24/18 13:10 EA [id number]) Functional Tests Other 1 Name of Test Deep/full squat Comment Mild difficulty to right hip PT-OP-F Manual Assessment Start: 04/24/18 10:51 Freq: Status: Active Protocol: Document 04/24/18 12:38 EA (Rec: 04/24/18 13:10 EA [id number]) Manual Assessments Soft Tissue Assessment Soft Tissue Mobility Assessment Tight right hamstring Joint Mobility Assessment Joint Mobility Assessment Hypo mobility to right hip ( Flexion) PT-OP-G Mobility & Gait Start: 04/24/18 10:51 Freq: Status: Active Protocol: Document 07/18/18 13:13 [facility] (Rec: 07/18/18 13:46 [facility] [id number]) OP Gait Assessment Comments Gait Comments Amb w/hop pattern w/crutches PT-OP-J Posture/Palpation/Skin Start: 04/24/18 10:51 Freq: Status: Active Protocol: Document 04/24/18 12:38 EA (Rec: 04/24/18 13:10 EA [id number]) Posture Evaluation Comments Posture Comments Good general body posture with slight increased low back pain PT-OP-K Range of Motion Start: 04/24/18 10:51 Freq: Status: Active Protocol: Document 04/24/18 12:38 EA (Rec: 04/24/18 13:10 EA [id number]) Hip Goniometric Range of Motion Hip Right Passive Testing Position Supine Flexion w/Knee Flexed 125 Right Active Testing Position Supine Flexion w/Knee Flexed 110 Left Active Hip ROM WFL Yes Flexion w/Knee Flexed 130 Hip ROM Limitations Hip ROM Limitations Pain PT-OP-L Special Tests Start: 04/24/18 10:51 Freq: Status: Active Protocol: Document 04/24/18 12:38 EA (Rec: 04/24/18 13:10 EA [id number]) Special Tests Hip Special Tests Scour Test Test Results negative ALYCIA Test Results positive Paola's Test Test Results negative Other Special Tests Special Tests Hip Labral tests (F/ADD/IR): Positive PT-OP-M Strength Start: 04/24/18 10:51 Freq: Status: Active Protocol: Document 09/12/18 13:06 [facility] (Rec: 09/12/18 13:25 [facility] [id number]) Hip Strength Hip Manual Muscle Testing Right Flexion (L2) 4- Good- Extension (S1) 5 Normal Abduction 4+ Good+ Adduction 4+ Good+ External Rotation 4+ Good+ Internal Rotation 4+ Good+ Left Flexion (L2) 5 Normal Extension (S1) 5 Normal Abduction 5 Normal Adduction 5 Normal External Rotation 5 Normal Internal Rotation 5 Normal Knee Strength Knee Manual Muscle Testing Right Flexion (S2) 5 Normal Extension (L3) 5 Normal Left Flexion (S2) 5 Normal Extension (L3) 5 Normal PT-OP-Q Treatments Start: 04/24/18 10:51 Freq: Status: Active Protocol: Document 10/17/18 09:04 [facility] (Rec: 10/17/18 10:03 [facility] [id number]) Cardio Equipment Elliptical Duration (Minutes) 6 Resistance 6 Therapeutic Exercises Prone Exercises 1 Prone Exercise Name plank hands and knees progressed to feet Reps/Minutes [id number] Standing Exercises 2 Standing Exercise Name gait at wall Side bilateral Reps/Minutes 15 sec holds Gait Training Gait Activity walking Description focus on push off Comments avoiding rotation of pelvis; faciliated walking also. Neuro Re-Education Treatment Other Activities PNF Details ant elevation & post depression Comments rhythmic initiation, sustained holds, COI, use of LE w/ patterns & concentric reversals PT-OP-R Modalities Start: 04/24/18 10:51 Freq: Status: Active Protocol: Document 10/03/18 12:56 [facility] (Rec: 10/03/18 13:48 [facility] [id number]) Hot Pack/Cold Pack Treatment Cold Pack Location ant hip Treatment Duration (minutes) 10 PT-OP-S Aquatic Treatment Start: 10/24/18 14:01 Freq: Status: Active Protocol: Document 10/22/18 11:30 [facility] (Rec: 10/24/18 14:09 SAK [id number]) Aquatics Treatment Pool Entry/Exit Pool Entry/Exit Method Lift Assistance Independent Water Walking Lunge Walk Water Level Chest Level Level of Assistance Verbal Cues march kick Water Level Chest Level Level of Assistance Verbal Cues march Water Level Chest Level Level of Assistance Verbal Cues Sideways Water Level Chest Level Level of Assistance Verbal Cues backward Water Level Chest Level Level of Assistance Verbal Cues forward Water Level Chest Level Level of Assistance Verbal Cues Lower Extremity Exercises squat Body Position Standing Reps/Duration 10x Comments cues for muscle activation and sequencing lunge walk Body Position Standing Reps/Duration 10x knee flex/ext Body Position Standing Reps/Duration 10x hip circles Body Position Standing Reps/Duration 10x hip ab/ad Body Position Standing Water Level Chest Level Reps/Duration 10x hip flex/ext Body Position Standing Reps/Duration 10x Lower Extremity Stretches piriformis Details chair position at wall Reps/Duration 2x Otto Activities Otto Activities Bicycle Bicycle Backwards Cross Country Running Hip Abduction/Adduction Other Activities Deep water DLS Equipment flotation belt, medium barbells PT-OP-T Assessment and Plan Start: 04/24/18 10:51 Freq: Status: Active Protocol: Document 10/22/18 11:30 SAK (Rec: 10/24/18 14:09 SAK [id number]) Physical Therapy Assessment Goals activity Short Term Goal (STG) Pt will be able to sit on floor w/kids w/o pain STG Duration 10/12/18 Crystal Growing Technician Goal (LTG) Pt will be able to mtn bike w/ dgt and be able to kick a ball to play w/ kids LTG Duration 11/12/18 Three Impairment strength Short Term Goal (STG) Pt will be indep with HEP STG Duration achieved-advancing as needed Crystal Growing Technician Goal (LTG) 08/12 LE strength to allow pt to return to active lifestyle LTG Duration 09/17/18 Two Impairment activties Short Term Goal (STG) Pt will be able to return to work. 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 LTG Duration 11/17/18 Assessment Summary Assessment Nitza needed frequent cues for postural alignment and muscle activation sequencing with all therapeutic aquatic exercises Physical Therapy Plan Frequency and Duration Frequency of Treatment 1-2x/Week Duration of Treatment 2 months Plan of Care Start Date 09/12/18 Plan of Care End Date 11/12/18 Next Visit Focus/Plan Next Note Type Treatment Note Next Visit Plan cont to work on gait mechanics & hip mobility & core exercise
--- NOTE | 2018-10-31 15:55 | PT.OTN ---
Current Diagnoses Other sprain of right hip, initial encounter (10/31/18) Physical Therapy Treatment Note PT-OP-A Visit Information Start: 04/24/18 10:51 Freq: Status: Active Protocol: Document 10/31/18 14:24 [facility] (Rec: 11/01/18 14:39 [facility] [id number]) Out-Patient Physical Therapy Visit Information Visit Information Visit Type Treatment Note Visit Start Time 14:30 Visit Stop Time 15:15 Total Visit Minutes 45 Visit Number PT-OP-B Current Condition Start: 04/24/18 10:51 Freq: Status: Active Protocol: Document 07/18/18 13:13 [facility] (Rec: 07/18/18 13:46 [facility] [id number]) Current Condition History of Current Condition Onset Date 1 1/2 year ago Current Complaints R hip ant pain History of Current Condition Pt is s/p R hip arthroscopic debridement-w/TTWB until 3 weeks post op. She has been compliant with crutches and feels like pain is improved. Per pt, she was told they just shaved down and debrided the tear. PMH:Present condition strated a year and half ago with no history of injury. Previous PT treatment six months ago was due to right low back and SI joint pain was resolved through surgery on October 2017. Medical reports reveals labral tear to right w/ detached labral fragments. Patient reffered to PT for evaluation and treatment. Prior Treatments and Tests August 2017: Formal PT treatment for right low back and SI joint pain Treatment Goals Patient/Caregiver Goals Return to playing with kids, riding bike, running, working out PT-OP-C Subjective Start: 04/24/18 10:51 Freq: Status: Active Protocol: Document 10/31/18 14:24 [facility] (Rec: 11/01/18 14:39 [facility] [id number]) OP-PT Subjective Patient Comments Patient Comments Pt reports she has done 2 hikes with mild soreness. Some soreness with biking especially with hills. PT-OP-D Balance Start: 04/24/18 10:51 Freq: Status: Active Protocol: Document 04/24/18 12:38 EA (Rec: 04/24/18 13:10 EA [id number]) Balance Tests Single Limb Standing Single Limb- Right able <10 secs Single Limb- Left able > 10 sec PT-OP-E Functional Tests Start: 04/24/18 10:51 Freq: Status: Active Protocol: Document 04/24/18 12:38 EA (Rec: 04/24/18 13:10 EA [id number]) Functional Tests Other 1 Name of Test Deep/full squat Comment Mild difficulty to right hip PT-OP-F Manual Assessment Start: 04/24/18 10:51 Freq: Status: Active Protocol: Document 04/24/18 12:38 EA (Rec: 04/24/18 13:10 EA [id number]) Manual Assessments Soft Tissue Assessment Soft Tissue Mobility Assessment Tight right hamstring Joint Mobility Assessment Joint Mobility Assessment Hypo mobility to right hip ( Flexion) PT-OP-G Mobility & Gait Start: 04/24/18 10:51 Freq: Status: Active Protocol: Document 07/18/18 13:13 [facility] (Rec: 07/18/18 13:46 [facility] [id number]) OP Gait Assessment Comments Gait Comments Amb w/hop pattern w/crutches PT-OP-J Posture/Palpation/Skin Start: 04/24/18 10:51 Freq: Status: Active Protocol: Document 04/24/18 12:38 EA (Rec: 04/24/18 13:10 EA [id number]) Posture Evaluation Comments Posture Comments Good general body posture with slight increased low back pain PT-OP-K Range of Motion Start: 04/24/18 10:51 Freq: Status: Active Protocol: Document 04/24/18 12:38 EA (Rec: 04/24/18 13:10 EA [id number]) Hip Goniometric Range of Motion Hip Right Passive Testing Position Supine Flexion w/Knee Flexed 125 Right Active Testing Position Supine Flexion w/Knee Flexed 110 Left Active Hip ROM WFL Yes Flexion w/Knee Flexed 130 Hip ROM Limitations Hip ROM Limitations Pain PT-OP-L Special Tests Start: 04/24/18 10:51 Freq: Status: Active Protocol: Document 04/24/18 12:38 EA (Rec: 04/24/18 13:10 EA [id number]) Special Tests Hip Special Tests Scour Test Test Results negative ALYCIA Test Results positive Paola's Test Test Results negative Other Special Tests Special Tests Hip Labral tests (F/ADD/IR): Positive PT-OP-M Strength Start: 04/24/18 10:51 Freq: Status: Active Protocol: Document 09/12/18 13:06 [facility] (Rec: 09/12/18 13:25 [facility] [id number]) Hip Strength Hip Manual Muscle Testing Right Flexion (L2) 4- Good- Extension (S1) 5 Normal Abduction 4+ Good+ Adduction 4+ Good+ External Rotation 4+ Good+ Internal Rotation 4+ Good+ Left Flexion (L2) 5 Normal Extension (S1) 5 Normal Abduction 5 Normal Adduction 5 Normal External Rotation 5 Normal Internal Rotation 5 Normal Knee Strength Knee Manual Muscle Testing Right Flexion (S2) 5 Normal Extension (L3) 5 Normal Left Flexion (S2) 5 Normal Extension (L3) 5 Normal PT-OP-Q Treatments Start: 04/24/18 10:51 Freq: Status: Active Protocol: Document 10/31/18 14:24 [facility] (Rec: 11/01/18 14:39 [facility] [id number]) Cardio Equipment Elliptical Duration (Minutes) 6 Resistance 6 Therapeutic Exercises Sitting Exercises 2 Sitting Exercise Name wt acceptance to RLE Reps/Minutes 6 Standing Exercises 1 Standing Exercise Name wt shift to acceptance to RLE Therapeutic Activity Therapeutic Activity seated Name posture with focus into wt acceptance into RLE 1 Name standing posture Comments progressed to wt shifting fwd into BLE for wt acceptance Neuro Re-Education Treatment Other Activities PNF Details ant elevation & post depression Comments rhythmic initiation, sustained holds, COI, use of LE w/ patterns & concentric reversals PT-OP-R Modalities Start: 04/24/18 10:51 Freq: Status: Active Protocol: Document 10/03/18 12:56 [facility] (Rec: 10/03/18 13:48 [facility] [id number]) Hot Pack/Cold Pack Treatment Cold Pack Location ant hip Treatment Duration (minutes) 10 PT-OP-S Aquatic Treatment Start: 10/24/18 14:01 Freq: Status: Active Protocol: Document 10/22/18 11:30 [facility] (Rec: 10/24/18 14:09 [facility]AK [id number]) Aquatics Treatment Pool Entry/Exit Pool Entry/Exit Method Lift Assistance Independent Water Walking Lunge Walk Water Level Chest Level Level of Assistance Verbal Cues march kick Water Level Chest Level Level of Assistance Verbal Cues march Water Level Chest Level Level of Assistance Verbal Cues Sideways Water Level Chest Level Level of Assistance Verbal Cues backward Water Level Chest Level Level of Assistance Verbal Cues forward Water Level Chest Level Level of Assistance Verbal Cues Lower Extremity Exercises squat Body Position Standing Reps/Duration 10x Comments cues for muscle activation and sequencing lunge walk Body Position Standing Reps/Duration 10x knee flex/ext Body Position Standing Reps/Duration 10x hip circles Body Position Standing Reps/Duration 10x hip ab/ad Body Position Standing Water Level Chest Level Reps/Duration 10x hip flex/ext Body Position Standing Reps/Duration 10x Lower Extremity Stretches piriformis Details chair position at wall Reps/Duration 2x Bryan Activities Bryan Activities Bicycle Bicycle Backwards Cross [place] Running Hip Abduction/Adduction Other Activities Deep water DLS Equipment flotation belt, medium barbells PT-OP-T Assessment and Plan Start: 04/24/18 10:51 Freq: Status: Active Protocol: Document 10/31/18 14:24 [facility] (Rec: 11/01/18 14:39 [facility] [id number]) Physical Therapy Assessment Goals activity Short Term Goal (STG) Pt will be able to sit on floor w/kids w/o pain STG Duration 10/12/18 Entomology Professor Goal (LTG) Pt will be able to mtn bike w/ dgt and be able to kick a ball to play w/ kids LTG Duration 11/12/18 Three Impairment strength Short Term Goal (STG) Pt will be indep with HEP STG Duration achieved-advancing as needed Assisted Goal (LTG) 08/12 LE strength to allow pt to return to active lifestyle LTG Duration 09/17/18 Two Impairment activties Short Term Goal (STG) Pt will be able to return to work. 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 LTG Duration 11/17/18 Assessment Summary Assessment Pt had improved wt acceptance into RLE after faciliation patterns. She is sent home to work on this activity. Physical Therapy Plan Frequency and Duration Frequency of Treatment 1-2x/Week Duration of Treatment 2 months Plan of Care Start Date 09/12/18 Plan of Care End Date 11/12/18 Next Visit Focus/Plan Next Note Type Treatment Note Next Visit Plan resisted steping
--- NOTE | 2018-11-14 16:51 | PT.OPPOC ---
Addendum entered and electronically signed by Joaquina Kumar PT 07/15/19 15:06: resend POC Original Note: Current Diagnoses Other sprain of right hip, initial encounter (11/21/18) Provider Visit Care Team Role Provider Type Kathie Richardson DO Attending Provider Physician Primary Care Provider Specialty: Family Practice Address: [address] [place] [address], [id number] Email: [email or web address] Plan Of Care PT-OP-T Assessment and Plan Start: 04/24/18 10:51 Freq: Status: Active Protocol: Document 11/14/18 18:49 [facility] (Rec: 11/14/18 19:01 [facility] [id number]) Physical Therapy Assessment Goals activity Short Term Goal (STG) Pt will be able to sit on floor w/kids w/o pain STG Duration 10/12/18-able to do most times Load Tester Goal (LTG) Pt will be able to mtn bike w/ dgt and be able to kick a ball to play w/ kids 11/14- able to do small bike rides, but kicking excessively painful LTG Duration 12/13/18 Three Impairment strength Short Term Goal (STG) Pt will be indep with HEP STG Duration achieved-advancing as needed Prison Goal (LTG) 5/5 LE strength to allow pt to return to active lifestyle LTG Duration 01/17/19 Two Impairment activties Short Term Goal (STG) Pt will be able to return to work. 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 LTG Duration achieved Assessment Summary Assessment It is likely pt is having difficulty with recovery d/t improper posture and mechanics throughout her day with pushing, pulling and reaching tasks. Spent most of sessionf ocusing on this and pt verbalized and demonstrated understanding and did not note pain during these activities. Pt is returning to more activities and working on return to full activities and higher level activities at this time, Physical Therapy Plan Frequency and Duration Frequency of Treatment 1-2x/Week Duration of Treatment 2 months Plan of Care Start Date 11/14/18 Plan of Care End Date 01/14/19 Therapeutic Interventions Therapeutic Interventions Aquatic Therapy Balance Training Gait Training Home Exercise Program Joint Mobilizations Manual Therapy Neuromuscular Re-education Patient/Caregiver Education Self-Care/Home Management Soft Tissue Mobilization Taping Therapeutic Activities Therapeutic Exercises Modalities Cold Pack/Ice Massage Electric Stimulation Hot Packs Ultrasound Next Visit Focus/Plan Next Note Type Treatment Note Next Visit Plan resisted side stepping, single leg squatting if pt able, work on pivotting with strengthening exercises, review body mechanics as needed, cont to work on gait pattern Plan of Care Dates Plan of Care Start Date 11/14/18 Plan of Care End Date 01/14/19 Please Sign and Return: I have reviewed this Plan of Care and certify that the skilled therapy services above are required to meet the patient?s needs. Physician Signature Date Printed Name and Credentials Clinical Instructor Signature Printed Name and Credentials
--- NOTE | 2018-11-14 19:01 | PT.OTN ---
Current Diagnoses Other sprain of right hip, initial encounter (11/14/18) Physical Therapy Treatment Note PT-OP-A Visit Information Start: 04/24/18 10:51 Freq: Status: Active Protocol: Document 11/14/18 18:49 [facility] (Rec: 11/14/18 19:01 [facility] [id number]) Out-Patient Physical Therapy Visit Information Visit Information Visit Type Treatment Note Visit Start Time 14:32 Visit Stop Time 15:17 Total Visit Minutes 45 Visit Number Number of BATHHOUSE KEEPER Visits 0 PT-OP-B Current Condition Start: 04/24/18 10:51 Freq: Status: Active Protocol: Document 07/18/18 13:13 [facility] (Rec: 07/18/18 13:46 [facility] [id number]) Current Condition History of Current Condition Onset Date 1 1/2 year ago Current Complaints R hip ant pain History of Current Condition Pt is s/p R hip arthroscopic debridement-w/TTWB until 3 weeks post op. She has been compliant with crutches and feels like pain is improved. Per pt, she was told they just shaved down and debrided the tear. PMH:Present condition strated a year and half ago with no history of injury. Previous PT treatment six months ago was due to right low back and SI joint pain was resolved through surgery on October 2017. Medical reports reveals labral tear to right w/ detached labral fragments. Patient reffered to PT for evaluation and treatment. Prior Treatments and Tests August 2017: Formal PT treatment for right low back and SI joint pain Treatment Goals Patient/Caregiver Goals Return to playing with kids, riding bike, running, working out PT-OP-C Subjective Start: 04/24/18 10:51 Freq: Status: Active Protocol: Document 11/14/18 18:49 [facility] (Rec: 11/14/18 19:01 [facility] [id number]) OP-PT Subjective Patient Comments Patient Comments Pt reports she did fine with a small hike and small amounts of biking on vacation and hip felt good. She worked recovery yesterday though and noticed pain within 2 hours. PT-OP-D Balance Start: 04/24/18 10:51 Freq: Status: Active Protocol: Document 04/24/18 12:38 EA (Rec: 04/24/18 13:10 EA [id number]) Balance Tests Single Limb Standing Single Limb- Right able <10 secs Single Limb- Left able > 10 sec PT-OP-E Functional Tests Start: 04/24/18 10:51 Freq: Status: Active Protocol: Document 04/24/18 12:38 EA (Rec: 04/24/18 13:10 EA [id number]) Functional Tests Other 1 Name of Test Deep/full squat Comment Mild difficulty to right hip PT-OP-F Manual Assessment Start: 04/24/18 10:51 Freq: Status: Active Protocol: Document 04/24/18 12:38 EA (Rec: 04/24/18 13:10 EA [id number]) Manual Assessments Soft Tissue Assessment Soft Tissue Mobility Assessment Tight right hamstring Joint Mobility Assessment Joint Mobility Assessment Hypo mobility to right hip ( Flexion) PT-OP-G Mobility & Gait Start: 04/24/18 10:51 Freq: Status: Active Protocol: Document 07/18/18 13:13 [facility] (Rec: 07/18/18 13:46 [facility] [id number]) OP Gait Assessment Comments Gait Comments Amb w/hop pattern w/crutches PT-OP-J Posture/Palpation/Skin Start: 04/24/18 10:51 Freq: Status: Active Protocol: Document 04/24/18 12:38 EA (Rec: 04/24/18 13:10 EA [id number]) Posture Evaluation Comments Posture Comments Good general body posture with slight increased low back pain PT-OP-K Range of Motion Start: 04/24/18 10:51 Freq: Status: Active Protocol: Document 04/24/18 12:38 EA (Rec: 04/24/18 13:10 EA [id number]) Hip Goniometric Range of Motion Hip Right Passive Testing Position Supine Flexion w/Knee Flexed 125 Right Active Testing Position Supine Flexion w/Knee Flexed 110 Left Active Hip ROM WFL Yes Flexion w/Knee Flexed 130 Hip ROM Limitations Hip ROM Limitations Pain PT-OP-L Special Tests Start: 04/24/18 10:51 Freq: Status: Active Protocol: Document 04/24/18 12:38 EA (Rec: 04/24/18 13:10 EA [id number]) Special Tests Hip Special Tests Scour Test Test Results negative ALYCIA Test Results positive Paola's Test Test Results negative Other Special Tests Special Tests Hip Labral tests (F/ADD/IR): Positive PT-OP-M Strength Start: 04/24/18 10:51 Freq: Status: Active Protocol: Document 09/12/18 13:06 [facility] (Rec: 09/12/18 13:25 [facility] [id number]) Hip Strength Hip Manual Muscle Testing Right Flexion (L2) 4- Good- Extension (S1) 5 Normal Abduction 4+ Good+ Adduction 4+ Good+ External Rotation 4+ Good+ Internal Rotation 4+ Good+ Left Flexion (L2) 5 Normal Extension (S1) 5 Normal Abduction 5 Normal Adduction 5 Normal External Rotation 5 Normal Internal Rotation 5 Normal Knee Strength Knee Manual Muscle Testing Right Flexion (S2) 5 Normal Extension (L3) 5 Normal Left Flexion (S2) 5 Normal Extension (L3) 5 Normal PT-OP-Q Treatments Start: 04/24/18 10:51 Freq: Status: Active Protocol: Document 11/14/18 18:49 [facility] (Rec: 11/14/18 19:01 [facility] [id number]) Cardio Equipment Elliptical Duration (Minutes) 6 Resistance 6 Therapeutic Activity Therapeutic Activity work Name working on work activities Comments edu on push/pull positioning, hip hinge for IV placement, wt shift for lifting head of bed 1 Name standing posture Comments progressed to wt shifting fwd into BLE for wt acceptance Gait Training Gait Activity weight shift Description fwd for wt acceptance into BLE walking Comments facilitated gait through ant elevation & with dowel angel; amb in mirror with focus on push off and no lat leaning or roation PT-OP-R Modalities Start: 04/24/18 10:51 Freq: Status: Active Protocol: Document 10/03/18 12:56 [facility] (Rec: 10/03/18 13:48 [facility] [id number]) Hot Pack/Cold Pack Treatment Cold Pack Location ant hip Treatment Duration (minutes) 10 PT-OP-S Aquatic Treatment Start: 10/24/18 14:01 Freq: Status: Active Protocol: Document 10/22/18 11:30 [facility] (Rec: 10/24/18 14:09 [facility] [id number]) Aquatics Treatment Pool Entry/Exit Pool Entry/Exit Method Lift Assistance Independent Water Walking Lunge Walk Water Level Chest Level Level of Assistance Verbal Cues march kick Water Level Chest Level Level of Assistance Verbal Cues march Water Level Chest Level Level of Assistance Verbal Cues Sideways Water Level Chest Level Level of Assistance Verbal Cues backward Water Level Chest Level Level of Assistance Verbal Cues forward Water Level Chest Level Level of Assistance Verbal Cues Lower Extremity Exercises squat Body Position Standing Reps/Duration 10x Comments cues for muscle activation and sequencing lunge walk Body Position Standing Reps/Duration 10x knee flex/ext Body Position Standing Reps/Duration 10x hip circles Body Position Standing Reps/Duration 10x hip ab/ad Body Position Standing Water Level Chest Level Reps/Duration 10x hip flex/ext Body Position Standing Reps/Duration 10x Lower Extremity Stretches piriformis Details chair position at wall Reps/Duration 2x Wilcox Activities Wilcox Activities Bicycle Bicycle Backwards Cross Country Running Hip Abduction/Adduction Other Activities Deep water DLS Equipment flotation belt, medium barbells PT-OP-T Assessment and Plan Start: 04/24/18 10:51 Freq: Status: Active Protocol: Document 11/14/18 18:49 [facility] (Rec: 11/14/18 19:01 [facility] [id number]) Physical Therapy Assessment Goals activity Short Term Goal (STG) Pt will be able to sit on floor w/kids w/o pain STG Duration 10/12/18 Urban Planning Professor Goal (LTG) Pt will be able to mtn bike w/ dgt and be able to kick a ball to play w/ kids LTG Duration 11/12/18 Three Impairment strength Short Term Goal (STG) Pt will be indep with HEP STG Duration achieved-advancing as needed Urban Planning Professor Goal (LTG) 08/12 LE strength to allow pt to return to active lifestyle LTG Duration 09/17/18 Two Impairment activties Short Term Goal (STG) Pt will be able to return to work. 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 LTG Duration 11/17/18 Assessment Summary Assessment It is likely pt is having difficulty with recovery d/t improper posture and mechanics throughout her day with pushing, pulling and reaching tasks. Spent most of sessionf ocusing on this and pt verbalized and demonstrated understanding and did not note pain during these activities. Physical Therapy Plan Frequency and Duration Frequency of Treatment 1-2x/Week Duration of Treatment 2 months Plan of Care Start Date 09/12/18 Plan of Care End Date 11/12/18 Next Visit Focus/Plan Next Note Type Treatment Note Next Visit Plan resisted side stepping, single leg squatting if pt able, work on pivotting with strengthening exercises, review body mechanics as needed, cont to work on gait pattern
--- NOTE | 2018-11-21 10:42 | PT.OTN ---
Current Diagnoses Other sprain of right hip, initial encounter (11/21/18) Physical Therapy Treatment Note PT-OP-A Visit Information Start: 04/24/18 10:51 Freq: Status: Active Protocol: Document 11/21/18 09:52 [facility] (Rec: 11/21/18 10:42 [facility] [id number]) Out-Patient Physical Therapy Visit Information Visit Information Visit Type Treatment Note Visit Start Time 09:45 Visit Stop Time 10:30 Total Visit Minutes 45 Visit Number Number of CABLE TESTERS HELPER Visits 0 PT-OP-B Current Condition Start: 04/24/18 10:51 Freq: Status: Active Protocol: Document 07/18/18 13:13 [facility] (Rec: 07/18/18 13:46 [facility] [id number]) Current Condition History of Current Condition Onset Date 1 1/2 year ago Current Complaints R hip ant pain History of Current Condition Pt is s/p R hip arthroscopic debridement-w/TTWB until 3 weeks post op. She has been compliant with crutches and feels like pain is improved. Per pt, she was told they just shaved down and debrided the tear. PMH:Present condition strated a year and half ago with no history of injury. Previous PT treatment six months ago was due to right low back and SI joint pain was resolved through surgery on October 2017. Medical reports reveals labral tear to right w/ detached labral fragments. Patient reffered to PT for evaluation and treatment. Prior Treatments and Tests August 2017: Formal PT treatment for right low back and SI joint pain Treatment Goals Patient/Caregiver Goals Return to playing with kids, riding bike, running, working out PT-OP-C Subjective Start: 04/24/18 10:51 Freq: Status: Active Protocol: Document 11/21/18 09:52 [facility] (Rec: 11/21/18 10:42 [facility] [id number]) OP-PT Subjective Patient Comments Patient Comments Pt reprots she worked recovery on Fri and then Sat worked admit and felt fine pain stanley but was fatigued. She vacummed and steam cleaned floors without pain. Reports she worked on her movement mechanics and thinks that helped. Patient Reported Progress Improving PT-OP-D Balance Start: 04/24/18 10:51 Freq: Status: Active Protocol: Document 04/24/18 12:38 EA (Rec: 04/24/18 13:10 EA [id number]) Balance Tests Single Limb Standing Single Limb- Right able <10 secs Single Limb- Left able > 10 sec PT-OP-E Functional Tests Start: 04/24/18 10:51 Freq: Status: Active Protocol: Document 04/24/18 12:38 [facility] (Rec: 04/24/18 13:10 EA [id number]) Functional Tests Other 1 Name of Test Deep/full squat Comment Mild difficulty to right hip PT-OP-F Manual Assessment Start: 04/24/18 10:51 Freq: Status: Active Protocol: Document 04/24/18 12:38 [facility] (Rec: 04/24/18 13:10 EA [id number]) Manual Assessments Soft Tissue Assessment Soft Tissue Mobility Assessment Tight right hamstring Joint Mobility Assessment Joint Mobility Assessment Hypo mobility to right hip ( Flexion) PT-OP-G Mobility & Gait Start: 04/24/18 10:51 Freq: Status: Active Protocol: Document 07/18/18 13:13 [facility] (Rec: 07/18/18 13:46 [facility] [id number]) OP Gait Assessment Comments Gait Comments Amb w/hop pattern w/crutches PT-OP-J Posture/Palpation/Skin Start: 04/24/18 10:51 Freq: Status: Active Protocol: Document 04/24/18 12:38 [facility] (Rec: 04/24/18 13:10 EA [id number]) Posture Evaluation Comments Posture Comments Good general body posture with slight increased low back pain PT-OP-K Range of Motion Start: 04/24/18 10:51 Freq: Status: Active Protocol: Document 04/24/18 12:38 EA (Rec: 04/24/18 13:10 EA [id number]) Hip Goniometric Range of Motion Hip Right Passive Testing Position Supine Flexion w/Knee Flexed 125 Right Active Testing Position Supine Flexion w/Knee Flexed 110 Left Active Hip ROM WFL Yes Flexion w/Knee Flexed 130 Hip ROM Limitations Hip ROM Limitations Pain PT-OP-L Special Tests Start: 04/24/18 10:51 Freq: Status: Active Protocol: Document 04/24/18 12:38 EA (Rec: 04/24/18 13:10 EA [id number]) Special Tests Hip Special Tests Scour Test Test Results negative ALYCIA Test Results positive Paola's Test Test Results negative Other Special Tests Special Tests Hip Labral tests (F/ADD/IR): Positive PT-OP-M Strength Start: 04/24/18 10:51 Freq: Status: Active Protocol: Document 09/12/18 13:06 [facility] (Rec: 09/12/18 13:25 [facility] [id number]) Hip Strength Hip Manual Muscle Testing Right Flexion (L2) 4- Good- Extension (S1) 5 Normal Abduction 4+ Good+ Adduction 4+ Good+ External Rotation 4+ Good+ Internal Rotation 4+ Good+ Left Flexion (L2) 5 Normal Extension (S1) 5 Normal Abduction 5 Normal Adduction 5 Normal External Rotation 5 Normal Internal Rotation 5 Normal Knee Strength Knee Manual Muscle Testing Right Flexion (S2) 5 Normal Extension (L3) 5 Normal Left Flexion (S2) 5 Normal Extension (L3) 5 Normal PT-OP-Q Treatments Start: 04/24/18 10:51 Freq: Status: Active Protocol: Document 11/21/18 09:52 [facility] (Rec: 11/21/18 10:42 [facility] [id number]) Cardio Equipment Elliptical Duration (Minutes) 6 Resistance 6 Gym Equipment Shuttle Balance 1 Details staggered stance in lunge Comments red clips fwd & side while tossing ball Therapeutic Exercises Standing Exercises 5 Standing Exercise Name kicking about 20-30ft Side right Reps/Minutes 15 4 Standing Exercise Name lunges Comments star but focused on to L side & back d/t pain so worked on form 3 Standing Exercise Name lat squat walk Side bilateral Reps/Minutes 30ft down Comments fwd & back Manual Therapy Treatment Soft Tissue Mobilization 2 Body Location adductors Mobilization Type Strumming Sustained Pressure Joint Mobilizations hip Joint R Direction med & inf FM for abd 1 Joint innominate Direction abd FM R PT-OP-R Modalities Start: 04/24/18 10:51 Freq: Status: Active Protocol: Document 10/03/18 12:56 [facility] (Rec: 10/03/18 13:48 [facility] [id number]) Hot Pack/Cold Pack Treatment Cold Pack Location ant hip Treatment Duration (minutes) 10 PT-OP-S Aquatic Treatment Start: 10/24/18 14:01 Freq: Status: Active Protocol: Document 10/22/18 11:30 [facility] (Rec: 10/24/18 14:09 [facility] [id number]) Aquatics Treatment Pool Entry/Exit Pool Entry/Exit Method Lift Assistance Independent Water Walking Lunge Walk Water Level Chest Level Level of Assistance Verbal Cues march kick Water Level Chest Level Level of Assistance Verbal Cues march Water Level Chest Level Level of Assistance Verbal Cues Sideways Water Level Chest Level Level of Assistance Verbal Cues backward Water Level Chest Level Level of Assistance Verbal Cues forward Water Level Chest Level Level of Assistance Verbal Cues Lower Extremity Exercises squat Body Position Standing Reps/Duration 10x Comments cues for muscle activation and sequencing lunge walk Body Position Standing Reps/Duration 10x knee flex/ext Body Position Standing Reps/Duration 10x hip circles Body Position Standing Reps/Duration 10x hip ab/ad Body Position Standing Water Level Chest Level Reps/Duration 10x hip flex/ext Body Position Standing Reps/Duration 10x Lower Extremity Stretches piriformis Details chair position at wall Reps/Duration 2x [place] Activities [place] Activities Bicycle Bicycle Backwards Cross Country Running Hip Abduction/Adduction Other Activities Deep water DLS Equipment flotation belt, medium barbells PT-OP-T Assessment and Plan Start: 04/24/18 10:51 Freq: Status: Active Protocol: Document 11/21/18 09:52 [facility] (Rec: 11/21/18 10:42 [facility] [id number]) Physical Therapy Assessment Goals activity Short Term Goal (STG) Pt will be able to sit on floor w/kids w/o pain STG Duration 10/12/18-able to do most times Senior Database Engineer Goal (LTG) Pt will be able to mtn bike w/ dgt and be able to kick a ball to play w/ kids 11/14- able to do small bike rides, but kicking excessively painful LTG Duration 12/13/18 Three Impairment strength Short Term Goal (STG) Pt will be indep with HEP STG Duration achieved-advancing as needed Mcc Goal (LTG) 08/12 LE strength to allow pt to return to active lifestyle LTG Duration 01/17/19 Two Impairment activties Short Term Goal (STG) Pt will be able to return to work. 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 LTG Duration achieved Assessment Summary Assessment Pt able to do higher level activities without pain except wide base squatting position pain deep anteriomedially. Physical Therapy Plan Frequency and Duration Frequency of Treatment 1-2x/Week Duration of Treatment 2 months Plan of Care Start Date 11/14/18 Plan of Care End Date 01/14/19 Next Visit Focus/Plan Next Note Type Treatment Note Next Visit Plan resisted side stepping, single leg squatting if pt able, work on pivotting with strengthening exercises, review body mechanics as needed, cont to work on gait pattern
--- NOTE | 2018-11-27 08:19 | PT-OP ANOTE ---
Pt was called re: no show and phone went to . was full so no message was able to be left.
--- NOTE | 2018-12-04 12:07 | PT.OTN ---
Current Diagnoses Other sprain of right hip, initial encounter (12/04/18) Physical Therapy Treatment Note PT-OP-A Visit Information Start: 04/24/18 10:51 Freq: Status: Active Protocol: Document 12/04/18 08:34 [facility] (Rec: 12/04/18 12:06 [facility] [id number]) Out-Patient Physical Therapy Visit Information Visit Information Visit Type Treatment Note Visit Start Time 08:15 Visit Stop Time 09:10 Total Visit Minutes 55 Visit Number Number of LEGISLATIVE ASSISTANT Visits 0 PT-OP-B Current Condition Start: 04/24/18 10:51 Freq: Status: Active Protocol: Document 07/18/18 13:13 [facility] (Rec: 07/18/18 13:46 [facility] [id number]) Current Condition History of Current Condition Onset Date 1 1/2 year ago Current Complaints R hip ant pain History of Current Condition Pt is s/p R hip arthroscopic debridement-w/TTWB until 3 weeks post op. She has been compliant with crutches and feels like pain is improved. Per pt, she was told they just shaved down and debrided the tear. PMH:Present condition strated a year and half ago with no history of injury. Previous PT treatment six months ago was due to right low back and SI joint pain was resolved through surgery on October 2017. Medical reports reveals labral tear to right w/ detached labral fragments. Patient reffered to PT for evaluation and treatment. 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 She sees this morning Patient Reported Progress Improving PT-OP-D Balance Start: 04/24/18 10:51 Freq: Status: Active Protocol: Document 04/24/18 12:38 [facility] (Rec: 04/24/18 13:10 [facility] [id number]) Balance Tests Single Limb Standing Single Limb- Right able <10 secs Single Limb- Left able > 10 sec PT-OP-E Functional Tests Start: 04/24/18 10:51 Freq: Status: Active Protocol: Document 04/24/18 12:38 [facility] (Rec: 04/24/18 13:10 [facility] [id number]) Functional Tests Other 1 Name of Test Deep/full squat Comment Mild difficulty to right hip PT-OP-F Manual Assessment Start: 04/24/18 10:51 Freq: Status: Active Protocol: Document 04/24/18 12:38 [facility] (Rec: 04/24/18 13:10 EA [id number]) Manual Assessments Soft Tissue Assessment Soft Tissue Mobility Assessment Tight right hamstring Joint Mobility Assessment Joint Mobility Assessment Hypo mobility to right hip ( Flexion) PT-OP-G Mobility & Gait Start: 04/24/18 10:51 Freq: Status: Active Protocol: Document 07/18/18 13:13 [facility] (Rec: 07/18/18 13:46 [facility] [id number]) OP Gait Assessment Comments Gait Comments Amb w/hop pattern w/crutches PT-OP-J Posture/Palpation/Skin Start: 04/24/18 10:51 Freq: Status: Active Protocol: Document 04/24/18 12:38 [facility] (Rec: 04/24/18 13:10 EA [id number]) Posture Evaluation Comments Posture Comments Good general body posture with slight increased low back pain PT-OP-K Range of Motion Start: 04/24/18 10:51 Freq: Status: Active Protocol: Document 04/24/18 12:38 EA (Rec: 04/24/18 13:10 EA [id number]) Hip Goniometric Range of Motion Hip Right Passive Testing Position Supine Flexion w/Knee Flexed 125 Right Active Testing Position Supine Flexion w/Knee Flexed 110 Left Active Hip ROM WFL Yes Flexion w/Knee Flexed 130 Hip ROM Limitations Hip ROM Limitations Pain PT-OP-L Special Tests Start: 04/24/18 10:51 Freq: Status: Active Protocol: Document 04/24/18 12:38 EA (Rec: 04/24/18 13:10 EA [id number]) Special Tests Hip Special Tests Scour Test Test Results negative ALYCIA Test Results positive Paola's Test Test Results negative Other Special Tests Special Tests Hip Labral tests (F/ADD/IR): Positive PT-OP-M Strength Start: 04/24/18 10:51 Freq: Status: Active Protocol: Document 09/12/18 13:06 [facility] (Rec: 09/12/18 13:25 [facility] [id number]) Hip Strength Hip Manual Muscle Testing Right Flexion (L2) 4- Good- Extension (S1) 5 Normal Abduction 4+ Good+ Adduction 4+ Good+ External Rotation 4+ Good+ Internal Rotation 4+ Good+ Left Flexion (L2) 5 Normal Extension (S1) 5 Normal Abduction 5 Normal Adduction 5 Normal External Rotation 5 Normal Internal Rotation 5 Normal Knee Strength Knee Manual Muscle Testing Right Flexion (S2) 5 Normal Extension (L3) 5 Normal Left Flexion (S2) 5 Normal Extension (L3) 5 Normal PT-OP-Q Treatments Start: 04/24/18 10:51 Freq: Status: Active Protocol: Document 12/04/18 08:34 [facility] (Rec: 12/04/18 12:06 [facility] [id number]) Cardio Equipment Elliptical Duration (Minutes) 6 Resistance 6 Therapeutic Exercises Standing Exercises 4 Standing Exercise Name standing rotation B Side bilateral 2 Standing Exercise Name lat & diagnoal lunges to bosu Side bilateral Reps/Minutes 15 ea B 1 Standing Exercise Name single leg squat position with opposite leg reaches fwd & behind Side bilateral Reps/Minutes 20 Other Exercises 1 Other Exercise Name self mob in pigeon & inf glide in supine Manual Therapy Treatment Soft Tissue Mobilization 2 Body Location psoas Mobilization Type Sustained Pressure Joint Mobilizations lumbar Joint L4-5 Direction AP FM PT-OP-R Modalities Start: 04/24/18 10:51 Freq: Status: Active Protocol: Document 10/03/18 12:56 [facility] (Rec: 10/03/18 13:48 [facility] [id number]) Hot Pack/Cold Pack Treatment Cold Pack Location ant hip Treatment Duration (minutes) 10 PT-OP-S Aquatic Treatment Start: 10/24/18 14:01 Freq: Status: Active Protocol: Document 10/22/18 11:30 [facility] (Rec: 10/24/18 14:09 [facility] [id number]) Aquatics Treatment Pool Entry/Exit Pool Entry/Exit Method Lift Assistance Independent Water Walking Lunge Walk Water Level Chest Level Level of Assistance Verbal Cues june kick Water Level Chest Level Level of Assistance Verbal Cues march Water Level Chest Level Level of Assistance Verbal Cues Sideways Water Level Chest Level Level of Assistance Verbal Cues backward Water Level Chest Level Level of Assistance Verbal Cues forward Water Level Chest Level Level of Assistance Verbal Cues Lower Extremity Exercises squat Body Position Standing Reps/Duration 10x Comments cues for muscle activation and sequencing lunge walk Body Position Standing Reps/Duration 10x knee flex/ext Body Position Standing Reps/Duration 10x hip circles Body Position Standing Reps/Duration 10x hip ab/ad Body Position Standing Water Level Chest Level Reps/Duration 10x hip flex/ext Body Position Standing Reps/Duration 10x Lower Extremity Stretches piriformis Details chair position at wall Reps/Duration 2x [place]elius Activities Cornelius Activities Bicycle Bicycle Backwards Cross [place] Running Hip Abduction/Adduction Other Activities Deep water DLS Equipment flotation belt, medium barbells PT-OP-T Assessment and Plan Start: 04/24/18 10:51 Freq: Status: Active Protocol: Document 12/04/18 08:34 [facility] (Rec: 12/04/18 12:06 [facility] [id number]) Physical Therapy Assessment Goals activity Short Term Goal (STG) Pt will be able to sit on floor w/kids w/o pain STG Duration achieved Intermediate Goal (LTG) Pt will be able to mtn bike w/ dgt and be able to kick a ball to play w/ kids 11/14- able to do small bike rides, but kicking excessively painful LTG Duration 12/13/18 Three Impairment strength Short Term Goal (STG) Pt will be indep with HEP STG Duration achieved-advancing as needed Intermediate Goal (LTG) 5 LE strength to allow pt to return to active lifestyle LTG Duration 01/17/19 Two Impairment activties Short Term Goal (STG) Pt will be able to 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 LTG Duration achieved Assessment Summary Assessment Pt still has tightness with full range hip flexion that she feels deep into hip. She was given self mobs to help with this at home. She was able to do WB lat and rotational mobility today. Physical Therapy Plan Frequency and Duration Frequency of Treatment 1-2x/Week Duration of Treatment 2 months Plan of Care Start Date 11/14/18 Plan of Care End Date 01/14/19 Next Visit Focus/Plan Next Note Type Treatment Note Next Visit Plan resisted side stepping, single leg squatting if pt able, work on pivotting with strengthening exercises, review body mechanics as needed, cont to work on gait pattern; work on hip mobiliity for end range flex
--- NOTE | 2018-12-16 20:37 | PT.OTN ---
Current Diagnoses Other sprain of right hip, initial encounter (12/13/18) Physical Therapy Treatment Note PT-OP-A Visit Information Start: 04/24/18 10:51 Freq: Status: Active Protocol: Document 12/13/18 09:15 [facility] (Rec: 12/16/18 20:37 [facility] [id number]) Out-Patient Physical Therapy Visit Information Visit Information Visit Type Treatment Note Visit Start Time 09:15 Visit Stop Time 09:45 Total Visit Minutes 30 Visit Number 19 Number of VP PRODUCT Visits 0 PT-OP-B Current Condition Start: 04/24/18 10:51 Freq: Status: Active Protocol: Document 07/18/18 13:13 [facility] (Rec: 07/18/18 13:46 [facility] [id number]) Current Condition History of Current Condition Onset Date 1 1/2 year ago Current Complaints R hip ant pain History of Current Condition Pt is s/p R hip arthroscopic debridement-w/TTWB until 3 weeks post op. She has been compliant with crutches and feels like pain is improved. Per pt, she was told they just shaved down and debrided the tear. PMH:Present condition strated a year and half ago with no history of injury. Previous PT treatment six months ago was due to right low back and SI joint pain was resolved through surgery on October 2017. Medical reports reveals labral tear to right w/ detached labral fragments. Patient reffered to PT for evaluation and treatment. Prior Treatments and Tests August 2017: Formal PT treatment for right low back and SI joint pain Treatment Goals Patient/Caregiver Goals Return to playing with kids, riding bike, running, working out PT-OP-C Subjective Start: 04/24/18 10:51 Freq: Status: Active Protocol: Document 12/13/18 09:15 [facility] (Rec: 12/16/18 20:37 [facility] [email or web address]) OP-PT Subjective Patient Comments Patient Comments pt notes she is up to 45 min on her bike at home. long distance driving seems to be the most difficult for her right now Patient Reported Progress Improving PT-OP-D Balance Start: 04/24/18 10:51 Freq: Status: Active Protocol: Document 04/24/18 12:38 [facility] (Rec: 04/24/18 13:10 EA [id number]) Balance Tests Single Limb Standing Single Limb- Right able <10 secs Single Limb- Left able > 10 sec PT-OP-E Functional Tests Start: 04/24/18 10:51 Freq: Status: Active Protocol: Document 04/24/18 12:38 [facility] (Rec: 04/24/18 13:10 [facility] [id number]) Functional Tests Other 1 Name of Test Deep/full squat Comment Mild difficulty to right hip PT-OP-F Manual Assessment Start: 04/24/18 10:51 Freq: Status: Active Protocol: Document 04/24/18 12:38 [facility] (Rec: 04/24/18 13:10 EA [id number]) Manual Assessments Soft Tissue Assessment Soft Tissue Mobility Assessment Tight right hamstring Joint Mobility Assessment Joint Mobility Assessment Hypo mobility to right hip ( Flexion) PT-OP-G Mobility & Gait Start: 04/24/18 10:51 Freq: Status: Active Protocol: Document 07/18/18 13:13 [facility] (Rec: 07/18/18 13:46 [facility] [id number]) OP Gait Assessment Comments Gait Comments Amb w/hop pattern w/crutches PT-OP-J Posture/Palpation/Skin Start: 04/24/18 10:51 Freq: Status: Active Protocol: Document 04/24/18 12:38 [facility] (Rec: 04/24/18 13:10 EA [id number]) Posture Evaluation Comments Posture Comments Good general body posture with slight increased low back pain PT-OP-K Range of Motion Start: 04/24/18 10:51 Freq: Status: Active Protocol: Document 04/24/18 12:38 [facility] (Rec: 04/24/18 13:10 EA [id number]) Hip Goniometric Range of Motion Hip Right Passive Testing Position Supine Flexion w/Knee Flexed 125 Right Active Testing Position Supine Flexion w/Knee Flexed 110 Left Active Hip ROM WFL Yes Flexion w/Knee Flexed 130 Hip ROM Limitations Hip ROM Limitations Pain PT-OP-L Special Tests Start: 04/24/18 10:51 Freq: Status: Active Protocol: Document 04/24/18 12:38 EA (Rec: 04/24/18 13:10 EA [id number]) Special Tests Hip Special Tests Scour Test Test Results negative ALYCIA Test Results positive Paola's Test Test Results negative Other Special Tests Special Tests Hip Labral tests (F/ADD/IR): Positive PT-OP-M Strength Start: 04/24/18 10:51 Freq: Status: Active Protocol: Document 09/12/18 13:06 [facility] (Rec: 09/12/18 13:25 [facility] [id number]) Hip Strength Hip Manual Muscle Testing Right Flexion (L2) 4- Good- Extension (S1) 5 Normal Abduction 4+ Good+ Adduction 4+ Good+ External Rotation 4+ Good+ Internal Rotation 4+ Good+ Left Flexion (L2) 5 Normal Extension (S1) 5 Normal Abduction 5 Normal Adduction 5 Normal External Rotation 5 Normal Internal Rotation 5 Normal Knee Strength Knee Manual Muscle Testing Right Flexion (S2) 5 Normal Extension (L3) 5 Normal Left Flexion (S2) 5 Normal Extension (L3) 5 Normal PT-OP-Q Treatments Start: 04/24/18 10:51 Freq: Status: Active Protocol: Document 12/13/18 09:15 [facility] (Rec: 12/16/18 20:37 [facility] [id number]) Manual Therapy Treatment Soft Tissue Mobilization iliacus Body Location iliacus & inguinal ligament & psoas Mobilization Type Sustained Pressure 2 Body Location psoas Mobilization Type Sustained Pressure 1 Body Location ITB and QUAD Mobilization Type Rolling,Strumming Intensity/Depth Moderate Body Position Supine Comments lat Manual Techniques 2 Type sidelying iliopsoas and quad stretch HS Type 3 plane c/r HS stretch PT-OP-R Modalities Start: 04/24/18 10:51 Freq: Status: Active Protocol: Document 10/03/18 12:56 [facility] (Rec: 10/03/18 13:48 [facility] [id number]) Hot Pack/Cold Pack Treatment Cold Pack Location ant hip Treatment Duration (minutes) 10 PT-OP-S Aquatic Treatment Start: 10/24/18 14:01 Freq: Status: Active Protocol: Document 10/22/18 11:30 [facility] (Rec: 10/24/18 14:09 [facility] [id number]) Aquatics Treatment Pool Entry/Exit Pool Entry/Exit Method Lift Assistance Independent Water Walking Lunge Walk Water Level Chest Level Level of Assistance Verbal Cues march kick Water Level Chest Level Level of Assistance Verbal Cues march Water Level Chest Level Level of Assistance Verbal Cues Sideways Water Level Chest Level Level of Assistance Verbal Cues backward Water Level Chest Level Level of Assistance Verbal Cues forward Water Level Chest Level Level of Assistance Verbal Cues Lower Extremity Exercises squat Body Position Standing Reps/Duration 10x Comments cues for muscle activation and sequencing lunge walk Body Position Standing Reps/Duration 10x knee flex/ext Body Position Standing Reps/Duration 10x hip circles Body Position Standing Reps/Duration 10x hip ab/ad Body Position Standing Water Level Chest Level Reps/Duration 10x hip flex/ext Body Position Standing Reps/Duration 10x Lower Extremity Stretches piriformis Details chair position at wall Reps/Duration 2x [place] Activities [place] Activities Bicycle,Bicycle Backwards, Cross Country,Running,Hip Abduction/Adduction Other Activities Deep water DLS Equipment flotation belt, medium barbells PT-OP-T Assessment and Plan Start: 04/24/18 10:51 Freq: Status: Active Protocol: Document 12/13/18 09:15 [facility] (Rec: 12/16/18 20:37 [facility] [id number]) Physical Therapy Assessment Assessment Summary Assessment shortened tx today due to pt being a little late with first day of school drop offs. I worked on hamstring length today and gave Nitza supine 3 way stretch for HS, adductors, ITB. Continues to show improvements with tolerance for activity Physical Therapy Plan Frequency and Duration Frequency of Treatment 1-2x/Week Duration of Treatment 2 months Plan of Care Start Date 11/14/18 Plan of Care End Date 01/14/19 Next Visit Focus/Plan Next Note Type Treatment Note Next Visit Plan resisted side stepping, single leg squatting if pt able, work on pivotting with strengthening exercises, review body mechanics as needed, cont to work on gait pattern; work on hip mobiliity for end range flex
--- NOTE | 2018-12-18 18:38 | PT.OTN ---
Current Diagnoses Other sprain of right hip, initial encounter (12/18/18) Physical Therapy Treatment Note PT-OP-A Visit Information Start: 04/24/18 10:51 Freq: Status: Active Protocol: Document 12/18/18 10:44 AR (Rec: 12/18/18 10:57 AR [id number]) Out-Patient Physical Therapy Visit Information Visit Information Visit Type Treatment Note Visit Start Time 09:07 Visit Stop Time 09:45 Total Visit Minutes 38 Visit Number 20 Number of OUTBOUND TELEMARKETER Visits 0 PT-OP-B Current Condition Start: 04/24/18 10:51 Freq: Status: Active Protocol: Document 07/18/18 13:13 LR (Rec: 07/18/18 13:46 LR [id number]) Current Condition History of Current Condition Onset Date 1 1/2 year ago Current Complaints R hip ant pain History of Current Condition Pt is s/p R hip arthroscopic debridement-w/TTWB until 3 weeks post op. She has been compliant with crutches and feels like pain is improved. Per pt, she was told they just shaved down and debrided the tear. PMH:Present condition strated a year and half ago with no history of injury. Previous PT treatment six months ago was due to right low back and SI joint pain was resolved through surgery on October 2017. Medical reports reveals labral tear to right w/ detached labral fragments. Patient reffered to PT for evaluation and treatment. Prior Treatments and Tests August 2017: Formal PT treatment for right low back and SI joint pain Treatment Goals Patient/Caregiver Goals Return to playing with kids, riding bike, running, working out PT-OP-C Subjective Start: 04/24/18 10:51 Freq: Status: Active Protocol: Document 12/18/18 10:44 AR (Rec: 12/18/18 10:57 AR [id number]) OP-PT Subjective Patient Comments Patient Comments Pt arrived 7 min late. Pt worked recovery yesterday and was sore and had hip pain during work, but it went away when she get home. 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 Pt recently had a dcotor's appt and they stated capsular tightness may last up to 2 years after surgery. Pt feels comfortable with next visit being her last for a while and would like to follow up in about 1 month after that. Patient Reported Progress Improving PT-OP-D Balance Start: 04/24/18 10:51 Freq: Status: Active Protocol: Document 04/24/18 12:38 EA (Rec: 04/24/18 13:10 EA [id number]) Balance Tests Single Limb Standing Single Limb- Right able <10 secs Single Limb- Left able > 10 sec PT-OP-E Functional Tests Start: 04/24/18 10:51 Freq: Status: Active Protocol: Document 04/24/18 12:38 EA (Rec: 04/24/18 13:10 EA [id number]) Functional Tests Other 1 Name of Test Deep/full squat Comment Mild difficulty to right hip PT-OP-F Manual Assessment Start: 04/24/18 10:51 Freq: Status: Active Protocol: Document 04/24/18 12:38 EA (Rec: 04/24/18 13:10 EA [id number]) Manual Assessments Soft Tissue Assessment Soft Tissue Mobility Assessment Tight right hamstring Joint Mobility Assessment Joint Mobility Assessment Hypo mobility to right hip ( Flexion) PT-OP-G Mobility & Gait Start: 04/24/18 10:51 Freq: Status: Active Protocol: Document 07/18/18 13:13 [facility] (Rec: 07/18/18 13:46 [facility] [id number]) OP Gait Assessment Comments Gait Comments Amb w/hop pattern w/crutches PT-OP-J Posture/Palpation/Skin Start: 04/24/18 10:51 Freq: Status: Active Protocol: Document 04/24/18 12:38 EA (Rec: 04/24/18 13:10 EA [id number]) Posture Evaluation Comments Posture Comments Good general body posture with slight increased low back pain PT-OP-K Range of Motion Start: 04/24/18 10:51 Freq: Status: Active Protocol: Document 04/24/18 12:38 EA (Rec: 04/24/18 13:10 EA [id number]) Hip Goniometric Range of Motion Hip Right Passive Testing Position Supine Flexion w/Knee Flexed 125 Right Active Testing Position Supine Flexion w/Knee Flexed 110 Left Active Hip ROM WFL Yes Flexion w/Knee Flexed 130 Hip ROM Limitations Hip ROM Limitations Pain PT-OP-L Special Tests Start: 04/24/18 10:51 Freq: Status: Active Protocol: Document 04/24/18 12:38 EA (Rec: 04/24/18 13:10 EA [id number]) Special Tests Hip Special Tests Scour Test Test Results negative ALYCIA Test Results positive Paola's Test Test Results negative Other Special Tests Special Tests Hip Labral tests (F/ADD/IR): Positive PT-OP-M Strength Start: 04/24/18 10:51 Freq: Status: Active Protocol: Document 09/12/18 13:06 [facility] (Rec: 09/12/18 13:25 [facility] [id number]) Hip Strength Hip Manual Muscle Testing Right Flexion (L2) 4- Good- Extension (S1) 5 Normal Abduction 4+ Good+ Adduction 4+ Good+ External Rotation 4+ Good+ Internal Rotation 4+ Good+ Left Flexion (L2) 5 Normal Extension (S1) 5 Normal Abduction 5 Normal Adduction 5 Normal External Rotation 5 Normal Internal Rotation 5 Normal Knee Strength Knee Manual Muscle Testing Right Flexion (S2) 5 Normal Extension (L3) 5 Normal Left Flexion (S2) 5 Normal Extension (L3) 5 Normal PT-OP-Q Treatments Start: 04/24/18 10:51 Freq: Status: Active Protocol: Document 12/18/18 10:44 AR (Rec: 12/18/18 10:57 AR [id number]) Cardio Equipment Elliptical Duration (Minutes) 6 Resistance 6 Therapeutic Exercises Standing Exercises 5 Standing Exercise Name resisted lateral stepping Side bilateral Resistance red sport cord Reps/Minutes 3 min ea Therapeutic Activity Therapeutic Activity soccer kicks Name resisted soccer kicks Reps/Minutes 10 min Comments bilateral, focused on eccentric control. used video for education on form with kicking 1 Name fwd walking, resisted Reps/Minutes 4 min Comments blue sport cord. focused on dec hip hinge and leaning with entire trunk and pelvis forward to weight shift Manual Therapy Treatment Joint Mobilizations hip Joint R hip Direction inf, inf w IR bias Grade IV Body Position Supine Comments pt limited in IR with hip flexion, but no with hip in ext. restrictions may also partically be d/t muscular tightness, as mobilizations inc range but pt stil reported tight sensation PT-OP-R Modalities Start: 04/24/18 10:51 Freq: Status: Active Protocol: Document 10/03/18 12:56 [facility] (Rec: 10/03/18 13:48 [facility] [id number]) Hot Pack/Cold Pack Treatment Cold Pack Location ant hip Treatment Duration (minutes) 10 PT-OP-S Aquatic Treatment Start: 10/24/18 14:01 Freq: Status: Active Protocol: Document 10/22/18 11:30 SAK (Rec: 10/24/18 14:09 SAK [id number]) Aquatics Treatment Pool Entry/Exit Pool Entry/Exit Method Lift Assistance Independent Water Walking Lunge Walk Water Level Chest Level Level of Assistance Verbal Cues march kick Water Level Chest Level Level of Assistance Verbal Cues march Water Level Chest Level Level of Assistance Verbal Cues Sideways Water Level Chest Level Level of Assistance Verbal Cues backward Water Level Chest Level Level of Assistance Verbal Cues forward Water Level Chest Level Level of Assistance Verbal Cues Lower Extremity Exercises squat Body Position Standing Reps/Duration 10x Comments cues for muscle activation and sequencing lunge walk Body Position Standing Reps/Duration 10x knee flex/ext Body Position Standing Reps/Duration 10x hip circles Body Position Standing Reps/Duration 10x hip ab/ad Body Position Standing Water Level Chest Level Reps/Duration 10x hip flex/ext Body Position Standing Reps/Duration 10x Lower Extremity Stretches piriformis Details chair position at wall Reps/Duration 2x [place] Activities [place] Activities Bicycle,Bicycle Backwards, Cross Country,Running,Hip Abduction/Adduction Other Activities Deep water DLS Equipment flotation belt, medium barbells PT-OP-T Assessment and Plan Start: 04/24/18 10:51 Freq: Status: Active Protocol: Document 12/18/18 10:44 AR (Rec: 12/18/18 10:57 AR [id number]) Physical Therapy Assessment Goals activity Short Term Goal (STG) Pt will be able to sit on floor w/kids w/o pain STG Duration achieved Guest House Manager Goal (LTG) Pt will be able to mtn bike w/ dgt and be able to kick a ball to play w/ kids 11/14- able to do small bike rides, but kicking excessively painful LTG Duration 12/13/18 Three Impairment strength Short Term Goal (STG) Pt will be indep with HEP STG Duration achieved-advancing as needed Skilled Nursing Goal (LTG) /5 LE strength to allow pt to return to active lifestyle LTG Duration 01/17/19 Two Impairment activties Short Term Goal (STG) Pt will be able to return to work. 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 LTG Duration achieved Assessment Summary Assessment Pt has been able to inc activity but still reports pain during. Improvements in the length of time that pt is sore after activity have also improved. Treatment focused on resisted walking and soccer kicks today to improve functional strength. Pt has continued to be compliant with HEP and feels she can continue to stretch and strengthen at home and check in with therapy in 1 month after next visit. Physical Therapy Plan Frequency and Duration Frequency of Treatment 1-2x/Week Duration of Treatment 2 months Plan of Care Start Date 11/14/18 Plan of Care End Date 01/14/19 Next Visit Focus/Plan Next Note Type Treatment Note Next Visit Plan review and progress HEP as needed, review body mechanics for work. End hip ROM into flexion, address muscular restrictions as needed. single leg squat if appropriate, pivotting ex w strenthening
--- NOTE | 2018-12-31 09:57 | PT.OTN ---
Current Diagnoses Other sprain of right hip, initial encounter (12/26/18) Physical Therapy Treatment Note PT-OP-A Visit Information Start: 04/24/18 10:51 Freq: Status: Active Protocol: Document 12/26/18 10:45 [facility] (Rec: 12/31/18 09:57 [facility] [id number]) Out-Patient Physical Therapy Visit Information Visit Information Visit Type Treatment Note Visit Start Time 10:45 Visit Stop Time 11:30 Total Visit Minutes 45 Visit Number 21 Number of ELECTRICAL ASSISTANT Visits 0 PT-OP-B Current Condition Start: 04/24/18 10:51 Freq: Status: Active Protocol: Document 07/18/18 13:13 [facility] (Rec: 07/18/18 13:46 [facility] [id number]) Current Condition History of Current Condition Onset Date 1 1/2 year ago Current Complaints R hip ant pain History of Current Condition Pt is s/p R hip arthroscopic debridement-w/TTWB until 3 weeks post op. She has been compliant with crutches and feels like pain is improved. Per pt, she was told they just shaved down and debrided the tear. PMH:Present condition strated a year and half ago with no history of injury. Previous PT treatment six months ago was due to right low back and SI joint pain was resolved through surgery on October 2017. Medical reports reveals labral tear to right w/ detached labral fragments. Patient reffered to PT for evaluation and treatment. Prior Treatments and Tests August 2017: Formal PT treatment for right low back and SI joint pain Treatment Goals Patient/Caregiver Goals Return to playing with kids, riding bike, running, working out PT-OP-C Subjective Start: 04/24/18 10:51 Freq: Status: Active Protocol: Document 12/26/18 10:45 [facility] (Rec: 12/31/18 09:57 [facility] [id number]) OP-PT Subjective Patient Comments Patient Comments Pt reports she is slowly noticing improvments. She is still trying to figure out what activity at work is flaring her hip as she is sore at work and when she leaves work Patient Reported Progress Improving PT-OP-D Balance Start: 04/24/18 10:51 Freq: Status: Active Protocol: Document 04/24/18 12:38 EA (Rec: 04/24/18 13:10 EA [id number]) Balance Tests Single Limb Standing Single Limb- Right able <10 secs Single Limb- Left able > 10 sec PT-OP-E Functional Tests Start: 04/24/18 10:51 Freq: Status: Active Protocol: Document 04/24/18 12:38 EA (Rec: 04/24/18 13:10 EA [id number]) Functional Tests Other 1 Name of Test Deep/full squat Comment Mild difficulty to right hip PT-OP-F Manual Assessment Start: 04/24/18 10:51 Freq: Status: Active Protocol: Document 04/24/18 12:38 EA (Rec: 04/24/18 13:10 EA [id number]) Manual Assessments Soft Tissue Assessment Soft Tissue Mobility Assessment Tight right hamstring Joint Mobility Assessment Joint Mobility Assessment Hypo mobility to right hip ( Flexion) PT-OP-G Mobility & Gait Start: 04/24/18 10:51 Freq: Status: Active Protocol: Document 07/18/18 13:13 [facility] (Rec: 07/18/18 13:46 [facility] [id number]) OP Gait Assessment Comments Gait Comments Amb w/hop pattern w/crutches PT-OP-J Posture/Palpation/Skin Start: 04/24/18 10:51 Freq: Status: Active Protocol: Document 04/24/18 12:38 EA (Rec: 04/24/18 13:10 EA [id number]) Posture Evaluation Comments Posture Comments Good general body posture with slight increased low back pain PT-OP-K Range of Motion Start: 04/24/18 10:51 Freq: Status: Active Protocol: Document 04/24/18 12:38 EA (Rec: 04/24/18 13:10 EA [id number]) Hip Goniometric Range of Motion Hip Right Passive Testing Position Supine Flexion w/Knee Flexed 125 Right Active Testing Position Supine Flexion w/Knee Flexed 110 Left Active Hip ROM WFL Yes Flexion w/Knee Flexed 130 Hip ROM Limitations Hip ROM Limitations Pain PT-OP-L Special Tests Start: 04/24/18 10:51 Freq: Status: Active Protocol: Document 04/24/18 12:38 EA (Rec: 04/24/18 13:10 EA [id number]) Special Tests Hip Special Tests Scour Test Test Results negative ALYCIA Test Results positive Paola's Test Test Results negative Other Special Tests Special Tests Hip Labral tests (F/ADD/IR): Positive PT-OP-M Strength Start: 04/24/18 10:51 Freq: Status: Active Protocol: Document 09/12/18 13:06 [facility] (Rec: 09/12/18 13:25 [facility] [id number]) Hip Strength Hip Manual Muscle Testing Right Flexion (L2) 4- Good- Extension (S1) 5 Normal Abduction 4+ Good+ Adduction 4+ Good+ External Rotation 4+ Good+ Internal Rotation 4+ Good+ Left Flexion (L2) 5 Normal Extension (S1) 5 Normal Abduction 5 Normal Adduction 5 Normal External Rotation 5 Normal Internal Rotation 5 Normal Knee Strength Knee Manual Muscle Testing Right Flexion (S2) 5 Normal Extension (L3) 5 Normal Left Flexion (S2) 5 Normal Extension (L3) 5 Normal PT-OP-Q Treatments Start: 04/24/18 10:51 Freq: Status: Active Protocol: Document 12/26/18 10:45 [facility] (Rec: 12/31/18 09:57 [facility] [id number]) Cardio Equipment Elliptical Duration (Minutes) 6 Resistance 6 Therapeutic Exercises Supine Exercises HS Supine Exercise Name supine HS stretch, ITB stretch , and adductor stretch 2 Supine Exercise Name hip IR/ER w/core Side bilateral Reps/Minutes 10 Comments small comfortable range Manual Therapy Treatment Soft Tissue Mobilization iliacus Body Location iliacus & inguinal ligament & psoas Mobilization Type Sustained Pressure 2 Body Location psoas Mobilization Type Sustained Pressure 1 Body Location ITB and QUAD Mobilization Type Rolling,Strumming Intensity/Depth Moderate Body Position Supine Comments lat PT-OP-R Modalities Start: 04/24/18 10:51 Freq: Status: Active Protocol: Document 10/03/18 12:56 [facility] (Rec: 10/03/18 13:48 [facility] [id number]) Hot Pack/Cold Pack Treatment Cold Pack Location ant hip Treatment Duration (minutes) 10 PT-OP-S Aquatic Treatment Start: 10/24/18 14:01 Freq: Status: Active Protocol: Document 10/22/18 11:30 SAK (Rec: 10/24/18 14:09 SAK [id number]) Aquatics Treatment Pool Entry/Exit Pool Entry/Exit Method Lift Assistance Independent Water Walking Lunge Walk Water Level Chest Level Level of Assistance Verbal Cues june kick Water Level Chest Level Level of Assistance Verbal Cues march Water Level Chest Level Level of Assistance Verbal Cues Sideways Water Level Chest Level Level of Assistance Verbal Cues backward Water Level Chest Level Level of Assistance Verbal Cues forward Water Level Chest Level Level of Assistance Verbal Cues Lower Extremity Exercises squat Body Position Standing Reps/Duration 10x Comments cues for muscle activation and sequencing lunge walk Body Position Standing Reps/Duration 10x knee flex/ext Body Position Standing Reps/Duration 10x hip circles Body Position Standing Reps/Duration 10x hip ab/ad Body Position Standing Water Level Chest Level Reps/Duration 10x hip flex/ext Body Position Standing Reps/Duration 10x Lower Extremity Stretches piriformis Details chair position at wall Reps/Duration 2x [place] Activities [place] Activities Bicycle,Bicycle Backwards, Cross Country,Running,Hip Abduction/Adduction Other Activities Deep water DLS Equipment flotation belt, medium barbells PT-OP-T Assessment and Plan Start: 04/24/18 10:51 Freq: Status: Active Protocol: Document 12/26/18 10:45 [facility] (Rec: 12/31/18 09:57 [facility] [id number]) Physical Therapy Assessment Assessment Summary Assessment improving hip Flexion ROM,. still has tightness in the iliacus and quad on the right. She is making steady progress but it is slow. Her hip is aggravated by work related activity. Physical Therapy Plan Frequency and Duration Frequency of Treatment 1-2x/Week Duration of Treatment 2 months Plan of Care Start Date 11/14/18 Plan of Care End Date 01/14/19 Next Visit Focus/Plan Next Note Type Treatment Note Next Visit Plan review and progress HEP as needed, review body mechanics for work. End range hip ROM into flexion, address muscular restrictions as needed.
--- NOTE | 2019-01-03 09:48 | PT.OTN ---
Current Diagnoses Other sprain of right hip, initial encounter (01/03/19) Physical Therapy Treatment Note PT-OP-A Visit Information Start: 04/24/18 10:51 Freq: Status: Active Protocol: Document 01/03/19 09:04 [facility] (Rec: 01/03/19 09:48 [facility] [id number]) Out-Patient Physical Therapy Visit Information Visit Information Visit Type Treatment Note Visit Start Time 09:02 Visit Stop Time 09:41 Total Visit Minutes 39 Visit Number 22 Number of ASSISTANT HEALTH EDUCATOR Visits 0 PT-OP-B Current Condition Start: 04/24/18 10:51 Freq: Status: Active Protocol: Document 07/18/18 13:13 [facility] (Rec: 07/18/18 13:46 [facility] [id number]) Current Condition History of Current Condition Onset Date 1 1/2 year ago Current Complaints R hip ant pain History of Current Condition Pt is s/p R hip arthroscopic debridement-w/TTWB until 3 weeks post op. She has been compliant with crutches and feels like pain is improved. Per pt, she was told they just shaved down and debrided the tear. PMH:Present condition strated a year and half ago with no history of injury. Previous PT treatment six months ago was due to right low back and SI joint pain was resolved through surgery on October 2017. Medical reports reveals labral tear to right w/ detached labral fragments. Patient reffered to PT for evaluation and treatment. Prior Treatments and Tests August 2017: Formal PT treatment for right low back and SI joint pain Treatment Goals Patient/Caregiver Goals Return to playing with kids, riding bike, running, working out PT-OP-C Subjective Start: 04/24/18 10:51 Freq: Status: Active Protocol: Document 01/03/19 09:04 [facility] (Rec: 01/03/19 09:48 [facility] [id number]) OP-PT Subjective Patient Comments Patient Comments Pt reports she has some good days and some bad days PT-OP-D Balance Start: 04/24/18 10:51 Freq: Status: Active Protocol: Document 04/24/18 12:38 [facility] (Rec: 04/24/18 13:10 EA [id number]) Balance Tests Single Limb Standing Single Limb- Right able <10 secs Single Limb- Left able > 10 sec PT-OP-E Functional Tests Start: 04/24/18 10:51 Freq: Status: Active Protocol: Document 04/24/18 12:38 [facility] (Rec: 04/24/18 13:10 [facility] [id number]) Functional Tests Other 1 Name of Test Deep/full squat Comment Mild difficulty to right hip PT-OP-F Manual Assessment Start: 04/24/18 10:51 Freq: Status: Active Protocol: Document 04/24/18 12:38 [facility] (Rec: 04/24/18 13:10 EA [id number]) Manual Assessments Soft Tissue Assessment Soft Tissue Mobility Assessment Tight right hamstring Joint Mobility Assessment Joint Mobility Assessment Hypo mobility to right hip ( Flexion) PT-OP-G Mobility & Gait Start: 04/24/18 10:51 Freq: Status: Active Protocol: Document 07/18/18 13:13 [facility] (Rec: 07/18/18 13:46 [facility] [id number]) OP Gait Assessment Comments Gait Comments Amb w/hop pattern w/crutches PT-OP-J Posture/Palpation/Skin Start: 04/24/18 10:51 Freq: Status: Active Protocol: Document 04/24/18 12:38 [facility] (Rec: 04/24/18 13:10 EA [id number]) Posture Evaluation Comments Posture Comments Good general body posture with slight increased low back pain PT-OP-K Range of Motion Start: 04/24/18 10:51 Freq: Status: Active Protocol: Document 04/24/18 12:38 [facility] (Rec: 04/24/18 13:10 EA [id number]) Hip Goniometric Range of Motion Hip Right Passive Testing Position Supine Flexion w/Knee Flexed 125 Right Active Testing Position Supine Flexion w/Knee Flexed 110 Left Active Hip ROM WFL Yes Flexion w/Knee Flexed 130 Hip ROM Limitations Hip ROM Limitations Pain PT-OP-L Special Tests Start: 04/24/18 10:51 Freq: Status: Active Protocol: Document 04/24/18 12:38 [facility] (Rec: 04/24/18 13:10 EA [id number]) Special Tests Hip Special Tests Scour Test Test Results negative ALYCIA Test Results positive Paola's Test Test Results negative Other Special Tests Special Tests Hip Labral tests (F/ADD/IR): Positive PT-OP-M Strength Start: 04/24/18 10:51 Freq: Status: Active Protocol: Document 09/12/18 13:06 [facility] (Rec: 09/12/18 13:25 [facility] [id number]) Hip Strength Hip Manual Muscle Testing Right Flexion (L2) 4- Good- Extension (S1) 5 Normal Abduction 4+ Good+ Adduction 4+ Good+ External Rotation 4+ Good+ Internal Rotation 4+ Good+ Left Flexion (L2) 5 Normal Extension (S1) 5 Normal Abduction 5 Normal Adduction 5 Normal External Rotation 5 Normal Internal Rotation 5 Normal Knee Strength Knee Manual Muscle Testing Right Flexion (S2) 5 Normal Extension (L3) 5 Normal Left Flexion (S2) 5 Normal Extension (L3) 5 Normal PT-OP-Q Treatments Start: 04/24/18 10:51 Freq: Status: Active Protocol: Document 01/03/19 09:04 [facility] (Rec: 01/03/19 09:48 [facility] [id number]) Therapeutic Exercises Supine Exercises 2 Supine Exercise Name quad, hip flexor stretch Prone Exercises 1 Prone Exercise Name ER Side right Equipment Used L1 Gait Training Gait Activity running Description assesmment of running form & cueing for push off focus when running Manual Therapy Treatment Joint Mobilizations sacrum Direction caudla & ELMA hip Joint R hip Direction inf, inf w IR bias, lat, distraction Grade IV Body Position Supine 1 Joint innominate Direction ER R PT-OP-R Modalities Start: 04/24/18 10:51 Freq: Status: Active Protocol: Document 10/03/18 12:56 [facility] (Rec: 10/03/18 13:48 [facility] [id number]) Hot Pack/Cold Pack Treatment Cold Pack Location ant hip Treatment Duration (minutes) 10 PT-OP-S Aquatic Treatment Start: 10/24/18 14:01 Freq: Status: Active Protocol: Document 10/22/18 11:30 [facility] (Rec: 10/24/18 14:09 [facility] [id number]) Aquatics Treatment Pool Entry/Exit Pool Entry/Exit Method Lift Assistance Independent Water Walking Lunge Walk Water Level Chest Level Level of Assistance Verbal Cues june kick Water Level Chest Level Level of Assistance Verbal Cues march Water Level Chest Level Level of Assistance Verbal Cues Sideways Water Level Chest Level Level of Assistance Verbal Cues backward Water Level Chest Level Level of Assistance Verbal Cues forward Water Level Chest Level Level of Assistance Verbal Cues Lower Extremity Exercises squat Body Position Standing Reps/Duration 10x Comments cues for muscle activation and sequencing lunge walk Body Position Standing Reps/Duration 10x knee flex/ext Body Position Standing Reps/Duration 10x hip circles Body Position Standing Reps/Duration 10x hip ab/ad Body Position Standing Water Level Chest Level Reps/Duration 10x hip flex/ext Body Position Standing Reps/Duration 10x Lower Extremity Stretches piriformis Details chair position at wall Reps/Duration 2x Bradford Activities Bradford Activities Bicycle,Bicycle Backwards, Cross Country,Running,Hip Abduction/Adduction Other Activities Deep water DLS Equipment flotation belt, medium barbells PT-OP-T Assessment and Plan Start: 04/24/18 10:51 Freq: Status: Active Protocol: Document 01/03/19 09:04 [facility] (Rec: 01/03/19 09:48 [facility] [id number]) Physical Therapy Assessment Goals activity Short Term Goal (STG) Pt will be able to sit on floor w/kids w/o pain STG Duration achieved Retirement Goal (LTG) Pt will be able to mtn bike w/ dgt and be able to kick a ball to play w/ kids 11/14- able to do small bike rides, but kicking excessively painful LTG Duration 12/13/18 Three Impairment strength Short Term Goal (STG) Pt will be indep with HEP STG Duration achieved-advancing as needed Polishing Machine Operator Helper Goal (LTG) 5/5 LE strength to allow pt to return to active lifestyle LTG Duration 01/17/19 Two Impairment activties Short Term Goal (STG) Pt will be able to return to work. 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 LTG Duration achieved Assessment Summary Assessment Pt is improving with her mobility and improved ROM after treatment. She is going to work on exercises at home over the next few weeks and follow up re: progression as needed. Physical Therapy Plan Frequency and Duration Frequency of Treatment 1-2x/Week Duration of Treatment 2 months Plan of Care Start Date 11/14/18 Plan of Care End Date 01/14/19 Next Visit Focus/Plan Next Note Type Treatment Note Next Visit Plan review mechanics & stretches and strengthening as needed
--- NOTE | 2019-01-30 15:59 | PT.OPDS ---
Current Diagnoses Other sprain of right hip, initial encounter (01/03/19) Visit Care Team Role Provider Type Kathie Richardson DO Attending Provider Physician Primary Care Provider Specialty: [facility] Address: [address] [place] [address], [facility], [place], [address] Email: [email or web address] Visit Number Visit Number 22 Discharge Summary PT-OP-B Current Condition Start: 04/24/18 10:51 Freq: Status: Active Protocol: Document 07/18/18 13:13 [facility] (Rec: 07/18/18 13:46 [facility] [id number]) Current Condition History of Current Condition Onset Date 1 1/2 year ago Current Complaints R hip ant pain History of Current Condition Pt is s/p R hip arthroscopic debridement-w/TTWB until 3 weeks post op. She has been compliant with crutches and feels like pain is improved. Per pt, she was told they just shaved down and debrided the tear. PMH:Present condition strated a year and half ago with no history of injury. Previous PT treatment six months ago was due to right low back and SI joint pain was resolved through surgery on October 2017. Medical reports reveals labral tear to right w/ detached labral fragments. Patient reffered to PT for evaluation and treatment. Prior Treatments and Tests August 2017: Formal PT treatment for right low back and SI joint pain Treatment Goals Patient/Caregiver Goals Return to playing with kids, riding bike, running, working out PT-OP-C Subjective Start: 04/24/18 10:51 Freq: Status: Active Protocol: Document 01/03/19 09:04 [facility] (Rec: 01/03/19 09:48 [facility] [id number]) OP-PT Subjective Patient Comments Patient Comments Pt reports she has some good days and some bad days PT-OP-D Balance Start: 04/24/18 10:51 Freq: Status: Active Protocol: Document 04/24/18 12:38 [facility] (Rec: 04/24/18 13:10 EA [id number]) Balance Tests Single Limb Standing Single Limb- Right able <10 secs Single Limb- Left able > 10 sec PT-OP-E Functional Tests Start: 04/24/18 10:51 Freq: Status: Active Protocol: Document 04/24/18 12:38 [facility] (Rec: 04/24/18 13:10 EA [id number]) Functional Tests Other 1 Name of Test Deep/full squat Comment Mild difficulty to right hip PT-OP-F Manual Assessment Start: 04/24/18 10:51 Freq: Status: Active Protocol: Document 04/24/18 12:38 [facility] (Rec: 04/24/18 13:10 EA [id number]) Manual Assessments Soft Tissue Assessment Soft Tissue Mobility Assessment Tight right hamstring Joint Mobility Assessment Joint Mobility Assessment Hypo mobility to right hip ( Flexion) PT-OP-G Mobility & Gait Start: 04/24/18 10:51 Freq: Status: Active Protocol: Document 07/18/18 13:13 [facility] (Rec: 07/18/18 13:46 [facility] [id number]) OP Gait Assessment Comments Gait Comments Amb w/hop pattern w/crutches PT-OP-J Posture/Palpation/Skin Start: 04/24/18 10:51 Freq: Status: Active Protocol: Document 04/24/18 12:38 [facility] (Rec: 04/24/18 13:10 EA [id number]) Posture Evaluation Comments Posture Comments Good general body posture with slight increased low back pain PT-OP-K Range of Motion Start: 04/24/18 10:51 Freq: Status: Active Protocol: Document 04/24/18 12:38 [facility] (Rec: 04/24/18 13:10 EA [id number]) Hip Goniometric Range of Motion Hip Right Passive Testing Position Supine Flexion w/Knee Flexed 125 Right Active Testing Position Supine Flexion w/Knee Flexed 110 Left Active Hip ROM WFL Yes Flexion w/Knee Flexed 130 Hip ROM Limitations Hip ROM Limitations Pain PT-OP-L Special Tests Start: 04/24/18 10:51 Freq: Status: Active Protocol: Document 04/24/18 12:38 EA (Rec: 04/24/18 13:10 EA [id number]) Special Tests Hip Special Tests Scour Test Test Results negative ALYCIA Test Results positive Paola's Test Test Results negative Other Special Tests Special Tests Hip Labral tests (F/ADD/IR): Positive PT-OP-M Strength Start: 04/24/18 10:51 Freq: Status: Active Protocol: Document 09/12/18 13:06 [facility] (Rec: 09/12/18 13:25 [facility] [id number]) Hip Strength Hip Manual Muscle Testing Right Flexion (L2) 4- Good- Extension (S1) 5 Normal Abduction 4+ Good+ Adduction 4+ Good+ External Rotation 4+ Good+ Internal Rotation 4+ Good+ Left Flexion (L2) 5 Normal Extension (S1) 5 Normal Abduction 5 Normal Adduction 5 Normal External Rotation 5 Normal Internal Rotation 5 Normal Knee Strength Knee Manual Muscle Testing Right Flexion (S2) 5 Normal Extension (L3) 5 Normal Left Flexion (S2) 5 Normal Extension (L3) 5 Normal PT-OP-T Assessment and Plan Start: 04/24/18 10:51 Freq: Status: Active Protocol: Document 01/30/19 15:51 [facility] (Rec: 01/30/19 15:58 [facility] [id number]) Physical Therapy Assessment Goals activity Short Term Goal (STG) Pt will be able to sit on floor w/Numerexs w/o pain STG Duration achieved Shelter Goal (LTG) Pt will be able to mtn bike w/ dgt and be able to kick a ball to play w/ [employer] 11/14- able to do small bike rides, but kicking excessively painful LTG Duration achieved helping motor coach driver soccer, done small biking Three Impairment strength Short Term Goal (STG) Pt will be indep with HEP STG Duration achieved-advancing as needed Shelter Goal (LTG) 5/5 LE strength to allow pt to return to active lifestyle LTG Duration 01/17/19 Two Impairment activties Short Term Goal (STG) Pt will be able to return to work. 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 LTG Duration achieved Assessment Summary Assessment Pt is doing well and progressing back to her typical activities without inc pain only mild soreness. No issues with return to typicall work. Physical Therapy Plan Discharge Physical Therapy Discharge Reasons Goals Met
== END 2019-02-06 16:16 | disposition home or self-care (01) ==
LOC: PHYS 09:00
PROVIDERS: PCP Family Medicine; Visit Provider Family Medicine
DX: S73.191A Other sprain of right hip, initial encounter (principal)
CPT/HCPCS: 97010; 97110; 97112; 97113; 97116; 97140; 97161; 97164; 97530; 97535

== ENCOUNTER → 2019-01-09 10:28 | Outpatient (CLI) | payer OTHER, SELFPAY ==
[2019-01-09 12:06] LABS: Estradiol, Total 48.6 pg/mL
== END ==
PROVIDERS: PCP Family Medicine; Visit Provider Specialist
DX: N89.8 Other specified noninflammatory disorders of vagina (principal)
CPT/HCPCS: 36415; 82670

== ENCOUNTER → 2019-07-31 15:04 | Outpatient (CLI) | payer OTHER, SELFPAY ==
[2019-08-02 09:03] LABS: COVID19 Sendout Not Detected (Not Detected)
== END ==
PROVIDERS: PCP Family Medicine; Visit Provider Family Medicine
DX: Z11.9 Encounter for screening for infectious and parasitic diseases, unspecified (principal)
CPT/HCPCS: 87635

== ENCOUNTER → 2019-08-02 14:41 | Outpatient (CLI) | payer OTHER, SELFPAY ==
--- NOTE | 2019-08-02 14:44 | DI.RAD.S_ITS ---
PROCEDURE: XR CHEST 2V INDICATIONS: cough, fever TECHNIQUE: 2 views of the chest were acquired. COMPARISON: [facility], , CHEST 2 VIEW, 01/03/2013, 13:44. FINDINGS: Surgical changes and devices: None. Lungs and pleura: Mild perihilar and medial basilar opacity, left and right. No pleural effusions or pneumothorax. Mediastinum: Mediastinal contours are normal. Heart size is normal. Bones and chest wall: No suspicious bony abnormalities. Soft tissues appear unremarkable. IMPRESSION: Mild perihilar opacities, left greater than right. The findings are most suspicious for atypical/viral pneumonia. Reactive airways disease could have a similar appearance. Aspiration and pneumonia are felt to be less likely. Dictated by: Micah Meadows M.D. on 08/02/2019 at 16:06 Approved by: Micah Meadows M.D. on 08/02/2019 at 16:10
[2019-08-02 15:30] LABS: Add Manual Diff / Slide Review NO; Basophils Absolute Auto 0 /uL (0-100); Basophils Percent Auto 0.3 % (0-2); Eosinophils Absolute Auto 0 /uL (0-450); Hematocrit 42.3 % (36-46); Hemoglobin 14.5 g/dL (12.0-16.0); Lymphocytes Absolute Auto 900 /uL (1100-4500); Lymphocytes Percent Auto 15.6 % (25-40); Mean Corpuscular HGB Conc 34.3 % (30-36); Mean Corpuscular Hemoglobin 30.2 PG (26-34); Mean Corpuscular Volume 88.1 fL (80-100); Monocytes Absolute Auto 500 /uL (0-900); Monocytes Percent Auto 9.4 % (3-14); Neutrophils Absolute Auto 4400 /uL (1500-7000); Neutrophils Percent Auto 74.7 % (50-75); Platelet Count 271 X10^3/uL (150-400); Red Cell Distribution Width 12.7 % (11.6-14.8); White Blood Cell Count 5.8 X10^3/uL (4.5-11.0)
[2019-08-02 15:59] LABS: Alanine Aminotransferase 68 IU/L (<35); Albumin 4.3 g/dL (3.5-5.0); Albumin Globulin Ratio 1.2 (1.0-2.8); Alkaline Phosphatase 74 U/L (38-126); Aspartate Aminotransferase 57 IU/L (14-36); BUN Creatinine Ratio 14.5 (6-22); Bilirubin Total 0.3 mg/dL (0.2-1.3); Blood Urea Nitrogen 9 mg/dL (7-17); Calcium 9.3 mg/dL (8.4-10.2); Carbon Dioxide 27 mmol/L (22-32); Chloride 101 mmol/L (98-107); Estimated Glomerular Filt Rate > 60.0 mL/min (>60); Globulin 3.6 g/dL (1.7-4.1); Glucose 98 mg/dL (70-100); HEMOLYSIS < 15 (0-50); Potassium 4.4 mmol/L (3.4-5.1); Sodium 138 mmol/L (137-145); Total Protein 7.9 g/dL (6.3-8.2)
== END ==
PROVIDERS: PCP Family Medicine; Referring Provider Family Medicine; Visit Provider Family Medicine
DX: R05 Cough (principal); R50.9 Fever, unspecified; R53.83 Other fatigue
CPT/HCPCS: 36415; 71046; 80053; 85025

== ENCOUNTER → 2019-09-11 12:38 | Outpatient (CLI) | payer OTHER, SELFPAY ==
[2019-09-11 16:10] LABS: Alanine Aminotransferase 23 IU/L (<35); Albumin 4.4 g/dL (3.5-5.0); Albumin Globulin Ratio 1.6 (1.0-2.8); Alkaline Phosphatase 57 U/L (38-126); Aspartate Aminotransferase 32 IU/L (14-36); Bilirubin Total 0.6 mg/dL (0.2-1.3); Blood Urea Nitrogen 11 mg/dL (7-17); Calcium 9.2 mg/dL (8.4-10.2); Carbon Dioxide 31 mmol/L (22-32); Chloride 100 mmol/L (98-107); Estimated Glomerular Filt Rate > 60.0 mL/min (>60); Globulin 2.8 g/dL (1.7-4.1); Glucose 80 mg/dL (70-100); HEMOLYSIS < 15 (0-50); Potassium 4.1 mmol/L (3.4-5.1); Sodium 137 mmol/L (137-145); Total Protein 7.2 g/dL (6.3-8.2)
[2019-09-12 16:14] LABS: SARS CoV19 IgG Negative (Negative); SARS-CoV19- IgM Negative (Negative)
[2019-09-13 08:08] LABS: SARS CoV19 IgA Negative (Negative)
== END ==
PROVIDERS: PCP Family Medicine; Referring Provider Family Medicine; Visit Provider Family Medicine
DX: Z11.9 Encounter for screening for infectious and parasitic diseases, unspecified (principal); R79.89 Other specified abnormal findings of blood chemistry
CPT/HCPCS: 36415; 80053; 86769

== ENCOUNTER → 2020-03-12 16:08 | Outpatient (CLI) | payer OTHER, SELFPAY ==
[2020-03-12 18:24] LABS: TSH w/ Reflex to FT4 0.93 uIU/mL (0.47-4.68)
== END ==
PROVIDERS: PCP Family Medicine; Referring Provider Family Medicine; Visit Provider Family Medicine
DX: E03.9 Hypothyroidism, unspecified (principal)
CPT/HCPCS: 36415; 84443

== ENCOUNTER → 2020-09-29 09:16 | Outpatient (CLI) | payer OTHER, SELFPAY ==
[2020-09-29 11:13] LABS: TSH w/ Reflex to FT4 2.87 uIU/mL (0.47-4.68)
[2020-09-29 11:17] LABS: Estradiol, Total 86.9 pg/mL
== END ==
PROVIDERS: PCP Family Medicine; Referring Provider Family Medicine; Visit Provider Family Medicine
DX: E03.9 Hypothyroidism, unspecified (principal); L90.0 Lichen sclerosus et atrophicus
CPT/HCPCS: 36415; 82670; 84443

== ENCOUNTER → 2022-01-12 13:24 | Outpatient (CLI) | payer OTHER, SELFPAY ==
[2022-01-12 13:51] LABS: Add Manual Diff / Slide Review NO; Basophils Absolute Auto 0 /uL (0-100); Basophils Percent Auto 0.7 % (0-2); Eosinophils Absolute Auto 0 /uL (0-450); Hematocrit 40.9 % (36-46); Lymphocytes Absolute Auto 1500 /uL (1100-4500); Lymphocytes Percent Auto 29.3 % (25-40); Mean Corpuscular HGB Conc 34.1 % (30-36); Mean Corpuscular Hemoglobin 30.2 PG (26-34); Mean Corpuscular Volume 88.3 fL (80-100); Monocytes Absolute Auto 400 /uL (0-900); Monocytes Percent Auto 7.2 % (3-14); Neutrophils Absolute Auto 3300 /uL (1500-7000); Neutrophils Percent Auto 62.8 % (50-75); Platelet Count 215 X10^3/uL (150-400); Red Blood Cell Count 4.63 X10^6/uL (4.0-5.2); Red Cell Distribution Width 12.9 % (11.6-14.8); White Blood Cell Count 5.3 X10^3/uL (4.5-11.0)
[2022-01-12 14:28] LABS: Alanine Aminotransferase 16 IU/L (<35); Albumin 4.3 g/dL (3.5-5.0); Albumin Globulin Ratio 1.5 (1.0-2.8); Alkaline Phosphatase 56 U/L (38-126); Aspartate Aminotransferase 24 IU/L (14-36); BUN Creatinine Ratio 18.5 (6-22); Bilirubin Total 0.7 mg/dL (0.2-1.3); Blood Urea Nitrogen 12 mg/dL (7-17); Calcium 8.7 mg/dL (8.4-10.2); Carbon Dioxide 28 mmol/L (22-32); Chloride 100 mmol/L (98-107); Estimated Glomerular Filt Rate > 60 mL/min (>60); Globulin 2.8 g/dL (1.7-4.1); Glucose 84 mg/dL (70-100); HEMOLYSIS < 15 (0-50); Potassium 3.9 mmol/L (3.4-5.1); Sodium 138 mmol/L (137-145); Total Protein 7.1 g/dL (6.3-8.2)
[2022-01-12 14:57] LABS: TSH w/ Reflex to FT4 1.25 uIU/mL (0.47-4.68)
[2022-01-12 16:34] LABS: Estradiol, Total 80.2 pg/mL
== END ==
PROVIDERS: PCP Family Medicine; Referring Provider Family Medicine; Visit Provider Family Medicine
DX: E03.9 Hypothyroidism, unspecified (principal)
CPT/HCPCS: 36415; 80053; 82627; 82670; 84443; 85025

== ENCOUNTER → 2022-01-25 11:37 | Outpatient (CLI) | payer OTHER, SELFPAY ==
[2022-01-26 19:36] LABS: SS A Ro Sjogrens Antibody < 0.2 AI (0.0-0.9); SS B La Sjogrens Antibody < 0.2 AI (0.0-0.9)
[2022-01-28 13:17] LABS: ANA Screen, IFA Negative (.)
== END ==
PROVIDERS: PCP Family Medicine; Referring Provider Family Medicine; Visit Provider Family Medicine
DX: H04.123 Dry eye syndrome of bilateral lacrimal glands (principal)
CPT/HCPCS: 36415; 86038; 86235

== ENCOUNTER → 2022-12-27 13:22 | Outpatient (CLI) | payer OTHER, SELFPAY ==
--- NOTE | 2022-12-27 | DI.MG.S_ITS ---
BILATERAL DIGITAL SCREENING MAMMOGRAM 3D/2D WITH CAD: 12/27/2022 CLINICAL: Baseline exam. Routine screening. No prior exams were available for comparison. Both breasts are heterogeneously dense, which may obscure small masses (category c / 51-75% glandular tissue). Current study was also evaluated with a Computer Aided Detection (CAD) system. No significant masses, calcifications, or other findings are seen in either breast. IMPRESSION: NEGATIVE There is no mammographic evidence of malignancy. A 1 year screening mammogram is recommended. Based on the Tyrer Cuzick model (a risk assessment model) the patient's lifetime risk is 7.8% and her 10 year risk is 1.0%. According to the ACR, ACS, and NCCN guidelines, an annual breast MRI exam along with mammogram is recommended if the patient's lifetime risk is 20% or greater. This exam was interpreted at Station ID: [id number]. NOTE: For mammograms, a report in lay terms will be sent to the patient. Approximately 15% of breast malignancies will not be visualized mammographically. In the management of a palpable breast mass, a negative mammogram must not discourage biopsy of a clinically suspicious lesion. Electronically Signed By: Kirsten millan/noe:12/27/2022 16:05:15 letter sent: Normal Exam ACR BI-RADS Category 1: Negative [id number]
== END ==
PROVIDERS: PCP Family Medicine; Referring Provider Family Medicine; Visit Provider Family Medicine
DX: Z12.31 Encounter for screening mammogram for malignant neoplasm of breast (principal)
CPT/HCPCS: 77063; 77067

== ENCOUNTER → 2023-10-06 08:24 | Outpatient (CLI) | payer OTHER, SELFPAY ==
[2023-10-06 10:14] LABS: Free T4, Direct Thyroxine 0.61 ng/dL (0.78-2.19)
== END ==
PROVIDERS: PCP Family Medicine; Referring Provider Family Medicine; Visit Provider Family Medicine
DX: E03.9 Hypothyroidism, unspecified (principal)
CPT/HCPCS: 36415; 84439; 84443

== ENCOUNTER → 2023-12-05 13:45 | Outpatient (CLI) | payer OTHER, SELFPAY ==
[2023-12-05 15:04] LABS: Free T3, Triiodothyronine Free 5.85 pg/mL (2.77-5.27); Free T4, Direct Thyroxine 0.84 ng/dL (0.78-2.19)
[2023-12-05 15:17] LABS: Thyroid Stimulating Hormone 0.508 uIU/mL (0.47-4.68)
== END ==
PROVIDERS: PCP Family Medicine; Referring Provider Family Medicine; Visit Provider Family Medicine
DX: E03.9 Hypothyroidism, unspecified (principal)
CPT/HCPCS: 36415; 84439; 84443; 84481

== ENCOUNTER → 2024-02-02 14:35 | Outpatient (CLI) | payer OTHER, SELFPAY ==
--- NOTE | 2024-02-02 | DI.MG.S_ITS ---
BILATERAL DIGITAL SCREENING MAMMOGRAM 3D/2D WITH CAD: 02/02/2024 CLINICAL: Routine screening. Comparison is made to exam dated: 12/27/2022 mammogram - [facility]. The breasts are heterogeneously dense, which may obscure small masses (category c / 51-75% glandular tissue). Current study was also evaluated with a Computer Aided Detection (CAD) system. No significant masses, calcifications, or other findings are seen in either breast. There has been no significant interval change. IMPRESSION: NEGATIVE There is no mammographic evidence of malignancy. A 1 year screening mammogram is recommended. Based on the Tyrer Cuzick model (a risk assessment model) the patient's lifetime risk is 7.8% and her 10 year risk is 1.0%. According to the ACR, ACS, and NCCN guidelines, an annual breast MRI exam along with mammogram is recommended if the patient's lifetime risk is 20% or greater. This exam was interpreted at Station ID: [id number]. NOTE: For mammograms, a report in lay terms will be sent to the patient. Approximately 15% of breast malignancies will not be visualized mammographically. In the management of a palpable breast mass, a negative mammogram must not discourage biopsy of a clinically suspicious lesion. Electronically Signed By: Micah gregg/noe:02/02/2024 17:38:06 letter sent: Normal Exam ACR BI-RADS Category 1: Negative
== END ==
PROVIDERS: PCP Family Medicine; Referring Provider Family Medicine; Visit Provider Family Medicine
DX: Z12.31 Encounter for screening mammogram for malignant neoplasm of breast (principal); R92.333 Mammographic heterogeneous density, bilateral breasts
CPT/HCPCS: 77063; 77067

== ENCOUNTER → 2024-04-23 09:36 | Outpatient (CLI) | payer OTHER, SELFPAY ==
[2024-04-23 10:20] LABS: Add Manual Diff / Slide Review NO; Basophils Absolute Auto 0 /uL (0-100); Basophils Percent Auto 0.6 % (0-2); Eosinophils Absolute Auto 0 /uL (0-450); Hematocrit 44.1 % (36-46); Hemoglobin 14.6 g/dL (12.0-16.0); Lymphocytes Absolute Auto 1800 /uL (1100-4500); Lymphocytes Percent Auto 28.9 % (25-40); Mean Corpuscular HGB Conc 33.2 % (30-36); Mean Corpuscular Hemoglobin 29.9 PG (26-34); Monocytes Absolute Auto 400 /uL (0-900); Monocytes Percent Auto 6.5 % (3-14); Neutrophils Absolute Auto 4000 /uL (1500-7000); Platelet Count 223 X10^3/uL (150-400); Red Cell Distribution Width 12.5 % (11.6-14.8); White Blood Cell Count 6.3 X10^3/uL (4.5-11.0)
[2024-04-23 10:49] LABS: Hemoglobin A1C% w Est Avg Glu 4.6 % (4.0-6.0)
[2024-04-23 10:54] LABS: Alanine Aminotransferase 17 IU/L (<35); Albumin 4.6 g/dL (3.5-5.0); Albumin Globulin Ratio 1.8 (1.0-2.8); Alkaline Phosphatase 49 U/L (38-126); Aspartate Aminotransferase 24 IU/L (14-36); BUN Creatinine Ratio 14.1 (6-22); Blood Urea Nitrogen 10 mg/dL (7-17); Carbon Dioxide 27 mmol/L (22-32); Chloride 102 mmol/L (98-107); Cholesterol 192 mg/dL (140-199); Estimated Glomerular Filt Rate > 60 mL/min (>60); Globulin 2.6 g/dL (1.7-4.1); Glucose 87 mg/dL (70-100); HDL Cholesterol 43 mg/dL (40-60); HEMOLYSIS < 15 (0-50); LDL Cholesterol Calculated 133 mg/dL (<100); Potassium 4.3 mmol/L (3.4-5.1); Sodium 137 mmol/L (137-145); Total Protein 7.2 g/dL (6.3-8.2); Triglycerides 82 mg/dL (35-150)
[2024-04-23 10:59] LABS: Free T3, Triiodothyronine Free 6.55 pg/mL (2.77-5.27); Free T4, Direct Thyroxine 0.73 ng/dL (0.78-2.19)
[2024-04-23 11:12] LABS: Thyroid Stimulating Hormone 0.946 uIU/mL (0.47-4.68)
[2024-04-23 11:16] LABS: Ferritin 13 ng/mL (6-137)
[2024-04-24 08:13] LABS: CRP, High Sensitivity 0.41 mg/L (0.00-3.00)
== END ==
PROVIDERS: PCP Family Medicine; Referring Provider Family Medicine; Visit Provider Family Medicine
DX: Z01.419 Encounter for gynecological examination (general) (routine) without abnormal findings (principal); E03.9 Hypothyroidism, unspecified
CPT/HCPCS: 36415; 80053; 80061; 82728; 83036; 84439; 84443; 84481; 85025; 86140

== ENCOUNTER → 2024-07-04 08:28 | Outpatient (CLI) | payer OTHER, SELFPAY ==
[2024-07-04 10:16] LABS: TSH w/ Reflex to FT4 1.35 uIU/mL (0.47-4.68)
[2024-07-04 10:49] LABS: Free T3, Triiodothyronine Free 8.01 pg/mL (2.77-5.27)
[2024-07-04 11:46] LABS: HEMOLYSIS < 15 (0-50); Iron 171 ug/dL (37-170)
[2024-07-04 11:56] LABS: Percent Iron Saturation 70 % (15-50); Total Iron Binding Capacity 243 ug/dL (265-497); Transferrin 195 mg/dL (206-381)
[2024-07-04 22:22] LABS: Ferritin 167 ng/mL (6-137)
== END ==
PROVIDERS: PCP Family Medicine; Referring Provider Family Medicine; Visit Provider Family Medicine
DX: E03.9 Hypothyroidism, unspecified (principal); R53.83 Other fatigue; E61.1 Iron deficiency
CPT/HCPCS: 36415; 82728; 83540; 83550; 84443; 84481